=== PATIENT | female | born 1950 | race Caucasian/White ===

== ENCOUNTER 2017-04-23 16:31 | Emergency (ER) | payer MEDICARE, OTHER ==
[~2017-04-23] VITALS: Ht 167.6 cm; Wt 54.5 kg
[~2017-04-23 16:31] MED LIST: WHEEMIS3 XX
[2017-04-23 16:33] VITALS: BP 106/58; PULSE 79; RESP 14; TEMP 99.2; O2SAT 97
--- NOTE | 2017-04-23 18:13 | PD ---
HPI Chief Complaint: Eye Problems/Injury Time Seen by Provider: 18:12 Travel History International Travel<30 days: No Contact w/Intl Traveler<30days: No Traveled to known affect area: No History of Present Illness HPI 66-year-old female presents to the emergency Department with complaint of drainage and redness to her left eye for the last 4-5 days. She thinks that her redness and drainage is related to a fall that she had 3 weeks ago and she states that she hit the left side of her face and it was all "swollen up and bloody." Denies eye pain, photophobia, foreign body, recent trauma to the eye. Says she wakes up in the mornings with her eye crusted shut. Denies fever, vomiting. Reports blurry vision in both eyes; no change in vision in the left eye. Allergies to penicillin and sulfa. Patient says she is homeless and cannot afford a prescription for eye medication. She has no other medical complaints. She says she is concerned because she does not want to "lose her eye." He does not have an established primary care provider. No other modifying factors or associated signs and symptoms. PFSH Past Medical History Arthritis: Yes Cancer: Yes (Cervical/Ovarian) Cardiovascular Problems: Yes (patient states her blood is to thin, and it's been like that) Diminished Hearing: No Endocrine: No Genitourinary: Yes (STRESS INCONTINENCE) Musculoskeletal: Yes Neurologic: No Psychiatric: No Reproductive: No Respiratory: Yes (Tx TB in the .) Menopausal: Yes : 0 Para: 0 Miscarriage: 0 : 0 Past Surgical History Abdominal Surgery: Yes (SPLEENECTOMY) Gynecologic Surgery: Yes (PARTIAL HYSTERECTOMY) Hysterectomy: Yes (Partial age 26; Ovaries out age 41 ) Other Surgery: Yes (Splenectomy age 6) Social History Alcohol Use: Yes (2 4-Packs Daily) Tobacco Use: Yes (1PPD) Substance Use: No Allergies-Medications (Allergen,Severity, Reaction): Coded Allergies: Penicillin (Verified Allergy, Severe, SOB, 04/23/17) Sulfa (Verified Allergy, Severe, 04/23/17) Reported Meds & Prescriptions Reported Meds & Active Scripts Active Erythromycin Opth Oint 5 Mg/Gm Oint 1 Applic LEFT EYE QID 7 Days Review of Systems Except as stated in HPI: all other systems reviewed are Neg Physical Exam Narrative GENERAL: Well-nourished, well-developed female patient, in no acute distress; afebrile, nontoxic-appearing; disheveled SKIN: Warm and dry. HEAD: Atraumatic. Normocephalic. EYES: Pupils equal and round at 3 mm with brisk reaction. PERRLA. EOMI. left lid eversion with no foreign body noted. Left eye with mild scleral erythema and without lid edema. No orbital tenderness, erythema or cellulitis. Left eye without photophobia. No consensual photophobia. No scleral icterus. Dry drainage noted to upper and lower eyelashes and to the lower eyelid of the left eye. ENT: Mucosa pink and moist. NECK: Trachea midline. No lymphadenopathy. CARDIOVASCULAR: Regular rate. RESPIRATORY: No accessory muscle use. GASTROINTESTINAL: Rounded. NEUROLOGICAL: Awake and alert. Oriented 3. No obvious cranial nerve deficits. Motor grossly within normal limits. Normal speech. PSYCHIATRIC: Appropriate mood and affect; insight and judgment normal. Data Data Last Documented VS Vital Signs Date Time Temp Pulse Resp B/P Pulse Ox O2 Delivery O2 Flow Rate FiO2 04/23/17 16:33 99.2 79 14 106/58 97 Orders Erythromycin 0.5% Opth Oint (Ilotycin 0. (04/23/17 18:15) [facility] Medical Decision Making Medical Screen Exam Complete: Yes Emergency Medical Condition: Yes Medical Record Reviewed: Yes Differential Diagnosis Viral conjunctivitis, bacterial conjunctivitis, allergic conjunctivitis Narrative Course 66-year-old female physical examination consistent with left eye conjunctivitis. Patient is homeless and cannot afford prescription for antibiotic eye ointment. Erythromycin ordered in the ER and will be given to the patient. A prescription for azithromycin will also be provided to the patient. Instructed patient to follow up with ophthalmology. Patient given a information sheet [facility]. Patient verbalizes understanding and agreement with treatment plan. Patient is medically cleared and stable for discharge. Discussed reasons to return to the emergency department. Instructed patient to follow up with primary care provider. Patient agrees with treatment plan. The patients vital signs are stable and the patient is stable for outpatient follow-up and treatment. Patient discharged home, stable and in no acute distress. Diagnosis Primary Impression: Conjunctivitis Qualified Code: H10.9 - Conjunctivitis of left eye, unspecified conjunctivitis type Referrals: [facility] [employer] Primary Care Physician Patient Instructions: Conjunctivitis (ED), General Instructions Additional Instructions: Conjunctivitis is contagious Use antibiotic eye drops as prescribed Apply warm or cool compresses to both eyes for a few minutes several times daily to minimize irritation Avoid triggers, such as allergens, that may irritate your eyes Wash your hands frequently Do not share washcloths, towels, pillows, or any other material that has touched your eyes with any other household members Follow-up with your primary care provider Follow-up with ophthalmology as needed Return to the emergency department immediately with worsening of symptoms Med/Other Pt SpecificInfo: Prescription(s) given Scripts Erythromycin Opth Oint 5 Mg/Gm Oint1 Applic LEFT EYE QID 7 Days Ref 0 Prov:Lucille Maher 04/23/17 Disposition: 01 DISCHARGE HOME Condition: Stable Lucille Maher Apr 23, 2017 18:13 Lucille Maher Apr 23, 2017 18:13
[2017-04-23] MEDS ORDERED: ERYTHROMYCIN 0.5% OPTH OINT 3.5 GM TUBO LEFT EYE ONE (18:15)
[2017-04-23] MEDS ORDERED: ERYTOIN10 LEFT EYE (18:18)
== END 2017-04-23 18:40 | disposition home or self-care (01) ==
LOC: NEPK 16:31
DX: H10.9 Unspecified conjunctivitis (principal); M19.90 Unspecified osteoarthritis, unspecified site; Z88.2 Allergy status to sulfonamides; Z88.0 Allergy status to penicillin; Z59.0 Homelessness
CPT/HCPCS: 99283

== ENCOUNTER 2017-05-15 16:42 | Emergency (ER) | payer MEDICARE, OTHER ==
[~2017-05-15 16:42] MED LIST changes: +ERYTOIN10 LEFT EYE; -WHEEMIS3 XX
[2017-05-15 17:04] VITALS: BP 112/59; PULSE 73; RESP 20; TEMP 98.9; O2SAT 96
--- NOTE | 2017-05-15 17:24 | PD ---
Physical Exam Time Seen by Provider: 17:21 Narrative 66 y/o female here with L eye irritation and redness. dx with conjuctivitis on 04/23 but symptoms persist. Vital signs reviewed. Seen at triage desk. Awaiting bed placement. Data Data Last Documented VS Vital Signs Date Time Temp Pulse Resp B/P Pulse Ox O2 Delivery O2 Flow Rate FiO2 05/15/17 17:04 98.9 73 20 112/59 96 Room Air [facility] Medical Record Reviewed: Yes Supervised Visit with TAYLOR: Rico Glass May 15, 2017 17:24
--- NOTE | 2017-05-15 18:02 | PD ---
HPI Chief Complaint: Eye Problems/Injury Time Seen by Provider: 18:01 Travel History International Travel<30 days: No Contact w/Intl Traveler<30days: No Traveled to known affect area: No History of Present Illness HPI 66 year-old female presents to emergency department for recurrent irritation in her left eye with moderate erythema and edema of the left inferior eyelid. Patient states weeks ago she had a trauma to the left face/I. It became very edematous and was bleeding. This resolved and then she developed left eye irritation. She was diagnosed with conjunctivitis and prescribed erythromycin ointment in April. She states she has been using this but ran out. Denies any visual disturbances. No new injury. No sensation of foreign body. No other symptoms to report. PFSH Past Medical History Arthritis: Yes Cancer: Yes (Cervical/Ovarian) Cardiovascular Problems: Yes (patient states her blood is to thin, and it's been like that) Diminished Hearing: No Endocrine: No Genitourinary: Yes (STRESS INCONTINENCE) Musculoskeletal: Yes Neurologic: No Psychiatric: No Reproductive: No Respiratory: Yes (Tx TB in the .) Menopausal: Yes : 0 Para: 0 Miscarriage: 0 : 0 Past Surgical History Abdominal Surgery: Yes (SPLEENECTOMY) Gynecologic Surgery: Yes (PARTIAL HYSTERECTOMY) Hysterectomy: Yes (Partial age 26; Ovaries out age 41 ) Other Surgery: Yes (Splenectomy age 6) Social History Alcohol Use: Yes (2 4-Packs Daily) Tobacco Use: Yes (1PPD) Substance Use: No Allergies-Medications (Allergen,Severity, Reaction): Coded Allergies: Penicillin (Verified Allergy, Severe, SOB, 05/15/17) Sulfa (Verified Allergy, Severe, 05/15/17) Reported Meds & Prescriptions Reported Meds & Active Scripts Active Erythromycin Opth Oint 5 Mg/Gm Oint 1 Applic LEFT EYE QID 7 Days Review of Systems Except as stated in HPI: all other systems reviewed are Neg Physical Exam Narrative GENERAL: Thin, poorly kempt female patient, in no acute distress SKIN: Focused skin assessment warm/dry. HEAD: Normocephalic. No tenderness to palpation of the facial structures. EYES: No scleral icterus. Injection of the left sclera. Crusting along the lower eyelid. The left lower eyelid is mildly inflamed and outward turned. No foreign body identified. No increased uptake on fluorescein examination. NECK: Supple, trachea midline. No JVD or lymphadenopathy. CARDIOVASCULAR: Regular rate and rhythm without murmurs, gallops, or rubs. RESPIRATORY: Breath sounds equal bilaterally. No accessory muscle use. Data Data Last Documented VS Vital Signs Date Time Temp Pulse Resp B/P Pulse Ox O2 Delivery O2 Flow Rate FiO2 05/15/17 17:04 98.9 73 20 112/59 96 Room Air Orders Ofloxacin 0.3% Opth Soln (Ocuflox 0.3% O (05/15/17 18:15) [facility] Medical Decision Making Medical Screen Exam Complete: Yes Emergency Medical Condition: Yes Medical Record Reviewed: Yes Differential Diagnosis Conjunctivitis versus iritis versus keratitis versus blepharitis Narrative Course 66 year-old female presents to the emergency department for evaluation. Patient 's exam is consistent with a conjunctivitis. This seems to be recurrent diagnosis. Patient was on the mycin last visit. She'll be started on Ocuflox here. She is counseled on care, encouraged not to rub the eye, and to follow- up with ophthalmology. She agrees to return immediately with any acute worsening symptoms. Diagnosis Primary Impression: Conjunctivitis Qualified Code: H10.502 - Blepharoconjunctivitis of left eye, unspecified blepharoconjunctivitis type Referrals: [employer] Primary Care Physician Patient Instructions: Conjunctivitis (ED), General Instructions Additional Instructions: Do not rub your eye Cool compresses to alleviate irritation Warm compresses to remove any crusting Follow-up with the primary care provider Seek ophthalmology evaluation Return immediately with any acute worsening symptoms Med/Other Pt SpecificInfo: Prescription(s) given Scripts Ofloxacin Opth Drops (Ocuflox Opth Drops)0.3 % Drops1 Drop LEFT EYE Q6HR #1 BOTTLE Ref 0 Prov:Lillie Vargas 05/15/17 Disposition: 01 DISCHARGE HOME Condition: Stable Lillie Vargas May 15, 2017 18:01
[2017-05-15] MEDS ORDERED: OCUF0.3D LEFT EYE (18:08)
[2017-05-15] MEDS ORDERED: OFLOXACIN 0.3% OPTH SOLN 5 ML BTL LEFT EYE ONE (18:15)
== END 2017-05-15 18:38 | disposition home or self-care (01) ==
LOC: NEPK 16:42
DX: H10.9 Unspecified conjunctivitis (principal); M13.80 Other specified arthritis, unspecified site; F17.200 Nicotine dependence, unspecified, uncomplicated; Z86.11 Personal history of tuberculosis; Z85.41 Personal history of malignant neoplasm of cervix uteri; Z85.43 Personal history of malignant neoplasm of ovary; Z79.899 Other long term (current) drug therapy; Z88.0 Allergy status to penicillin; Z88.2 Allergy status to sulfonamides
CPT/HCPCS: 99283

== ENCOUNTER 2017-08-18 19:23 | Emergency (ER) | payer MEDICARE, OTHER ==
[~2017-08-18 19:23] MED LIST changes: +OCUF0.3D LEFT EYE
[2017-08-18 19:40] VITALS: BP 156/75; PULSE 88; RESP 22; TEMP 97.9; O2SAT 99
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
[2017-08-18] MEDS ORDERED: PERMETHRIN 5% CREAM 60 GM TOPICAL ONE (20:00)
== END 2017-08-18 22:01 | disposition home or self-care (01) ==
LOC: NEPB 19:23
DX: B86 Scabies (principal); Z59.0 Homelessness; F17.200 Nicotine dependence, unspecified, uncomplicated
CPT/HCPCS: 99283

== ENCOUNTER 2017-11-18 09:00 | Emergency (ER) | payer MEDICARE, OTHER ==
[~2017-11-18] VITALS: Ht 162.6 cm; Wt 55.0 kg
[2017-11-18 09:05] VITALS: BP 120/62; PULSE 82; RESP 20; TEMP 98.9; O2SAT 100
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
[2017-11-18] MEDS ORDERED: ASPI1POW9 (09:25)
== END 2017-11-18 09:44 | disposition home or self-care (01) ==
LOC: NEPC 09:00
DX: F10.229 Alcohol dependence with intoxication, unspecified (principal); F17.200 Nicotine dependence, unspecified, uncomplicated
CPT/HCPCS: 99283

== ENCOUNTER 2018-02-02 19:20 | Emergency (ER) | payer MEDICARE, OTHER ==
[~2018-02-02] VITALS: Ht 167.6 cm; Wt 55.0 kg
[~2018-02-02 19:20] MED LIST changes: +ASPI1POW9; -ERYTOIN10 LEFT EYE; -OCUF0.3D LEFT EYE
[2018-02-02 19:45] VITALS: BP 103/63; PULSE 74; RESP 18; TEMP 97.9; O2SAT 97
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
== END 2018-02-02 23:00 | disposition home or self-care (01) ==
LOC: NEDAMB 19:20
DX: S90.32XA Contusion of left foot, initial encounter (principal); X58.XXXA Exposure to other specified factors, initial encounter; Y92.512 Supermarket, store or market as the place of occurrence of the external cause
CPT/HCPCS: 73630; 99283

== ENCOUNTER 2018-06-29 20:56 | Inpatient (IN) ==
[2018-06-29 22:18] LABS: Anion Gap 10 meq/L (5-15); Blood Urea Nitrogen 5 mg/dL (7-18); Calcium 9.1 mg/dL (8.5-10.1); Carbon Dioxide 24.6 meq/L (21.0-32.0); Chloride 103 meq/L (98-107); Glomerular Filtration Rate Greater Than 89 mL/min (>89); Glucose,Random 93 mg/dL (74-106); Potassium 3.2 meq/L (3.5-5.1); Sodium 138 meq/L (136-145)
--- NOTE | 2018-06-29 22:22 | XR ---
EXAM DATE: 06/29/2018 9:37 PM EDT AGE/SEX: 68 years / Female INDICATIONS: . Cough and chest pain. CLINICAL DATA: This is the patient's initial encounter. Patient reports that signs and symptoms have been present for 1 day and indicates a pain score of 10/10. MEDICAL/SURGICAL HISTORY: . History of tuberculosis and pneumonia. None. COMPAR[place] [facility] [place]. . FINDINGS: The heart size is normal. There are multiple calcified masses seen bilaterally in the mid and upper l ungs being more numerous on the left. There is increased density seen at the right base. A significan t effusion is not seen. CONCLUSION: Right lower lung atelectasis or consolidation. Chronic calcification seen throughout the mid and upper lungs being more prominent on the left. Electronically signed by: Khoi Barone MD 06/29/2018 10:20 PM EDT
[2018-06-29 22:29] LABS: Baso # (Auto) 0.1 th/mm3 (0.0-0.2); Baso % (Auto) 0.7 % (0.0-2.0); Eos # (Auto) 0.2 th/mm3 (0.0-0.4); Eos % (Auto) 1.1 % (0.0-4.0); Hematocrit 39.1 % (35.0-46.0); Hemoglobin 13.3 gm/dL (11.6-15.3); Lymph # (Auto) 5.8 th/mm3 (1.0-4.8); Lymph % (Auto) 30.1 % (9.0-44.0); Mean Corpuscular Hemoglobin 35.5 pg (27.0-34.0); Mean Corpuscular Volume 104.6 fL (80.0-100.0); Mean Platelet Volume 8.3 fL (7.0-11.0); Mono # (Auto) 1.9 th/mm3 (0.0-0.9); Neut # (Auto) 11.2 th/mm3 (1.8-7.7); Neut % (Auto) 58.1 % (16.0-70.0); Platelet Count 578 th/mm3 (150-450); Red Blood Count 3.73 mil/mm3 (4.00-5.30); Red Cell Distribution Width 13.8 % (11.6-17.2); White Blood Count 19.3 th/mm3 (4.0-11.0)
[2018-06-29 22:31] LABS: Alcohol 250 mg/dL (0-5)
[2018-06-29] MEDS ORDERED: Erythromycin 0.5% Opth Oint 3.5 GM Tube LEFT EYE ONE (22:34)
--- NOTE | 2018-06-29 23:05 | ED ---
HPI General Chief complaint: Psychiatric Symptoms Stated complaint: SOB Time Seen by Provider: 06/29/18 21:20 History of Present Illness HPI narrative: This is a 68-year-old female with history of COPD, previous TB, previous conjunctivitis of the left eye, presents here today with complaints of cough 3 days. Patient reports productive with yellow phlegm. She denies any fevers, chills. She reports that she has had multiple infections in her lungs. She has not had recurrence of her TB. She reports that the cough started out as dry however is become more productive. Patient also reports redness to her left lower eyelid. No purulent drainage noted. No other complaints at the time of my examination. Related Data Home Medications Medication Instructions Recorded Confirmed No Known Home Medications 06/29/18 06/29/18 Allergies Allergy/AdvReac Type Severity Reaction Status Date / Time penicillin G Allergy Severe SOB Verified 06/29/18 21:10 Sulfa (Sulfonamide Allergy Severe Redness of Verified 06/29/18 21:10 Antibiotics) Skin Review of Systems Constitutional Denies chills and Denies fever(s) Eyes Denies blurry vision, Denies diplopia, Reports itchy eyes (Left eye) and Reports other (Left lower eyelid redness.) ENT Reports system reviewed and no additional complaints, except as docu Cardiovascular Denies chest pain and Denies dyspnea Respiratory Reports chest congestion, Reports cough and Denies dyspnea Gastrointestinal Denies abdominal pain, Denies nausea and Denies vomiting Genitourinary Reports system reviewed and no additional complaints, except as docu Musculoskeletal Reports system reviewed and no additional complaints, except as docu and Reports other (Chronic pain in right upper and bilateral lower extremity secondary to previous old accident.) Integumentary/Breasts Denies lesions and Denies skin ulcer Neurologic Reports system reviewed and no additional complaints, except as docu PMFSH Medical History Medical History COPD (chronic obstructive pulmonary disease) (Acute) ETOH abuse (Acute) Social History Social History Substance History: No History of Abuse Smoking Status: Former smoker Tobacco Type: Cigarettes How Often Do You Have a Drink Containing Alcohol: 4 or more times a week Recent Travel in [facility] within the Last 8 Weeks: No Recent Out of Country Travel within the Last 8 Weeks: No Immunization History Tetanus Immunization: Unsure Hx Influenza Vaccine This Season: No Exam Narrative Exam Narrative: GENERAL: [-] SKIN: Focused skin assessment warm/dry. HEAD: Atraumatic. Normocephalic. EYES: Pupils equal and round. No scleral icterus. No injection or drainage. ENT: No nasal bleeding or discharge. Mucous membranes pink and moist. NECK: Trachea midline. No JVD. CARDIOVASCULAR: Regular rate and rhythm. No murmur appreciated. RESPIRATORY: No accessory muscle use. Clear to auscultation. Breath sounds equal bilaterally. GASTROINTESTINAL: Abdomen soft, non-tender, nondistended. Hepatic and splenic margins not palpable. MUSCULOSKELETAL: No obvious deformities. No clubbing. No cyanosis. No edema. NEUROLOGICAL: Awake and alert. No obvious cranial nerve deficits. Motor grossly within normal limits. Normal speech. PSYCHIATRIC: Appropriate mood and affect; insight and judgment normal. Course Initial Documented Vital Signs Temperature 99.2 F 06/29/18 21:04 Pulse Rate 114 H 06/29/18 21:04 Respiratory Rate 12 06/29/18 21:04 Blood Pressure 144/90 H 06/29/18 21:04 Pulse Oximetry 98 06/29/18 21:04 Last Documented Vital Signs Temperature 98.7 F 06/29/18 21:13 Pulse Rate 79 06/29/18 22:05 Respiratory Rate 20 06/29/18 22:05 Blood Pressure 133/67 06/29/18 21:13 Pulse Oximetry 95 06/29/18 21:14 Medical Decision Making MDM Narrative Medical decision making narrative: 68-year-old female who is unfortunately homeless, presents here today with cough and congestion. Patient also reports left eye irritation. Patient has what appears to be chronic left eye conjunctivitis. There is no evidence of uptake on the cornea with fluorescein. The patient also has bronchitis with a history of tobacco use. She has been started on Rocephin and Zithromax. Chest x-ray shows consolidation of the right base. There is also middle lung changes worse on the left than on the right. White blood cell count is 19,000. Potassium is also 3.2. She has been given p.o. potassium replacement. Medical Screen Exam Complete: Yes Emergency Medical Condition: Yes Differential Diagnosis Differential Diagnosis: Bronchitis versus pneumonia versus tuberculosis versus conjunctivitis Lab Data Result diagrams: 06/29/18 21:28 06/29/18 21:28 Lab Results 06/29/18 06/29/18 Range/Units 21:28 21:28 WBC 19.3 H (4.0-11.0) th/mm3 RBC 3.73 L (4.00-5.30) mil/mm3 Hgb 13.3 (11.6-15.3) gm/dL Hct 39.1 (35.0-46.0) % MCV 104.6 H (80.0-100.0) fL MCH 35.5 H (27.0-34.0) pg MCHC 34.0 (32.0-36.0) % RDW 13.8 (11.6-17.2) % Plt Count 578 H (150-450) th/mm3 MPV 8.3 (7.0-11.0) fL Prelim Diff (Auto) Slide review pending Neut % (Auto) 58.1 (16.0-70.0) % Lymph % (Auto) 30.1 (9.0-44.0) % [place] % (Auto) 10.0 H (0.0-8.0) % Eos % (Auto) 1.1 (0.0-4.0) % Baso % (Auto) 0.7 (0.0-2.0) % Neut # (Auto) 11.2 H (1.8-7.7) th/mm3 Lymph # (Auto) 5.8 H (1.0-4.8) th/mm3 [place] # (Auto) 1.9 H (0.0-0.9) th/mm3 Eos # (Auto) 0.2 (0.0-0.4) th/mm3 Baso # (Auto) 0.1 (0.0-0.2) th/mm3 WBC Differential Manual diff final Seg Neuts % (Manual) 47 (16-70) % Band Neuts % (Manual) 16 H (0-6) % Lymphocytes % (Manual) 24 (9-44) % Monocytes % (Manual) 10 H (0-8) % Eosinophils % (Manual) 3 (0-4) % Abs Neuts (Manual) 12.2 H (1.8-7.7) th/mm3 Differential Comment . Platelet Estimate High H (Normal) Platelet Morphology Normal (Normal) Sodium 138 (136-145) meq/L Potassium 3.2 L (3.5-5.1) meq/L Chloride 103 (98-107) meq/L Carbon Dioxide 24.6 (21.0-32.0) meq/L Anion Gap 10 (5-15) meq/L BUN 5 L (7-18) mg/dL Creatinine 0.54 (0.50-1.00) mg/dL Estimated GFR Greater than 89 (>89) mL/min Random Glucose 93 (74-106) mg/dL Calcium 9.1 (8.5-10.1) mg/dL Serum Alcohol 250 H (0-5) mg/dL Imaging Data Radiologist's impression: Chest X-Ray 06/29/18 21:20 CONCLUSION: Right lower lung atelectasis or consolidation. Chronic calcification seen throughout the mid and upper lungs being more prominent on the left. Discharge Plan Discharge Disposition Patient Disposition: 30 Still Patient Discharge Details Diagnosis: Conjunctivitis, Pneumonia, Leukocytosis, Hypokalemia, Alcohol abuse with intoxication Physicians Team ED Provider: Dickson Rojas Primary Care Provider: UNKNOWN, Rxs /Orders / Referrals /Forms Prescriptions: No Action No Known Home Medications RF: 0 Discharge Interventions Interventions: Vital Signs Last Done: 06/29/18 21:14 Status ED Status: With Doctor
[2018-06-29 23:09] LABS: Eosinophils 3 % (0-4); Lymphocytes 24 % (9-44); Monocytes 10 % (0-8)
[2018-06-29 23:10] LABS: Platelet Morphology Normal (Normal)
[2018-06-30] MEDS ORDERED: Bisacodyl 10 MG Supp RECTAL PRN (01:10)
--- NOTE | 2018-06-30 01:35 | P.HPIM ---
History of Present Illness Primary Care Physician: UNKNOWN History of Present Illness: 68 y/o homeless female with a history or COPD and etoh abuse presented to the ED with a cough and sob. Patient states for the last few days she has had increasing sob, with a productive cough, fever and chills. She states she does have a history of TB but has not had a reoccurrence lately. She does not know the color of her sputum because she does not look at it she says. She is currently homeless, and does not take any medications. She denies any chest pain , headaches or dizziness. Inpatient Certification: I certify that the inpatient services were ordered in accordance with Medicare regulations governing the order. This includes certification that hospital inpatient services are reasonable and necessary and in the case of services not specified as inpatient-only under 42 CFR 419.22(n), that they are appropriately provided as inpatient services in accordance to with the 2-midnight benchmark under 43 CFR 412.3(e) Estimated Total Length of Stay (Days): 2 Plans for Post Hospital Care: Home Review of Systems All other systems reviewed negative except as stated in HPI [facility] - History History Provided By: Patient - Medical History Medical History: Medical History (Last Updated 06/30/18 @ 01:22 by CLIFFORD Damon) COPD (chronic obstructive pulmonary disease) ETOH abuse - Surgical History Surgical History: Surgical History (Last Updated 06/30/18 @ 01:22 by CLIFFORD Damon) H/O splenectomy H/O: hysterectomy - Family History Family History: Family History (Last Updated 06/30/18 @ 19:26 by CLIFFORD Damon) Other Family history unknown - Tobacco History Tobacco Use In Past 30 Days: Yes Smoking Status: Former smoker Tobacco Type: Cigarettes - Alcohol History How Often Do You Have a Drink Containing Alcohol: 4 or more times a week - Substance Use History Substance History: No History of Abuse - Travel History Recent Travel in the [place] Within the Last 8 Weeks: No Recent Travel Out of the Country Within the Last 8 Weeks: No - Immunization History Tetanus Immunization: Unsure Hx Influenza Vaccine This Season: No Medications and Allergies Active Medications: Active Medications Al Hydroxide/Mg Hydroxide (Milk Of Magnesia Liq) 30 ml PO Q12H PRN PRN Reason: Mild Constipation Bisacodyl (Dulcolax Supp) 10 mg RECTAL DAILY PRN PRN Reason: SEVERE CONSITIPATION Flumazenil (Romazecon Inj) 0.2 mg IV.PUSH Q1M PRN PRN Reason: OVERSEDATION Haloperidol Lactate (Haldol Inj) 1 mg IV.PUSH Q15M PRN PRN Reason: for severe agitation Levofloxacin/Dextrose (Levaquin 750 Mg Premix Inj) 150 mls @ 100 mls/hr IV.SIG ONCE ONE Stop: 06/30/18 02:23 Last Admin: 06/30/18 01:10 Dose: 100 mls/hr Sodium Chloride (Ns Inj) 1,000 mls @ 100 mls/hr IV.CONT .Q10H KEYA Lactulose (Lactulose Liq) 30 ml PO DAILY PRN PRN Reason: SEVERE CONSITIPATION Levofloxacin (Levaquin) 750 mg PO Q24H KEYA Lorazepam (Ativan Inj) 1 mg IV.PUSH Q4H PRN PRN Reason: for CIWA 8-10 Lorazepam (Ativan Inj) 2 mg IV.PUSH Q15M PRN PRN Reason: for CIWA > 20 Lorazepam (Ativan Inj) 2 mg IV.PUSH Q1H PRN PRN Reason: for CIWA 15-20 Lorazepam (Ativan) 1 mg PO Q4H PRN PRN Reason: for CIWA 8-10 Lorazepam (Ativan) 2 mg PO Q2H PRN PRN Reason: for CIWA 11-14 Lorazepam (Ativan Inj) 2 mg IV.PUSH Q2H PRN PRN Reason: for CIWA 11-14 Sennosides (Senokot) 17.2 mg PO Q12H PRN PRN Reason: Moderate Constipation Allergies Allergy/AdvReac Type Severity Reaction Status Date / Time penicillin G Allergy Severe SOB Verified 06/29/18 21:10 Sulfa (Sulfonamide Allergy Severe Redness of Verified 06/29/18 21:10 Antibiotics) Skin Home Medications Medication Instructions Recorded Confirmed Type No Known Home Medications 06/29/18 06/29/18 History Exam Vital signs: Vital Signs 06/29/18 21:04 06/29/18 21:13 06/29/18 21:14 Temperature 99.2 F 98.7 F Pulse Rate 114 H 81 78 Respiratory Rate 12 28 H 20 Blood Pressure 144/90 H 133/67 Pulse Oximetry 98 94 L 95 06/29/18 21:40 06/29/18 21:55 06/29/18 22:05 Temperature Pulse Rate 73 75 79 Respiratory Rate 18 22 20 Blood Pressure Pulse Oximetry 06/30/18 01:20 Temperature Pulse Rate 84 Respiratory Rate 20 Blood Pressure 99/55 L Pulse Oximetry 97 Intake & Output 06/29/18 06/29/18 06/30/18 06:59 18:59 06:59 Weight 54.431 kg Narrative: GENERAL: This is a thin, disheveled homeless female with dyspnea SKIN: Warm, dry, intact, no ecchymosis or open lesions EYES: Pupils equal round and reactive, no scleral edema or drainage CARDIOVASCULAR: Regular rate and rhythm without murmurs, gallops, or rubs. RESPIRATORY: Scattered rhonchi throughout, diminished bases, no wheezing GASTROINTESTINAL: Abdomen soft, non-tender, nondistended. Normal active bowel sounds MUSCULOSKELETAL: Extremities without clubbing, cyanosis, or edema. NEURO: Alert & Oriented x4 to person, place, time, situation. Moves all ext x4 Results - Labs CBC & Chem 7: 06/30/18 06:05 06/30/18 06:05 Labs: Short CBC 06/29/18 Range/Units 21:28 WBC 19.3 H (4.0-11.0) th/mm3 Hgb 13.3 (11.6-15.3) gm/dL Hct 39.1 (35.0-46.0) % Plt Count 578 H (150-450) th/mm3 BMP 06/29/18 21:28 Sodium 138 Potassium 3.2 L Chloride 103 Carbon Dioxide 24.6 BUN 5 L Creatinine 0.54 Calcium 9.1 - Imaging Impressions Chest X-Ray 06/29/18 21:20 CONCLUSION: Right lower lung atelectasis or consolidation. Chronic calcification seen throughout the mid and upper lungs being more prominent on the left. Caprini VTE Risk Assessment Caprini VTE Risk Assessment: No/Low Risk (score <= 1) Caprini Risk Assessment Model: Point Value = 1 Point Value = 2 Point Value = 3 Point Value = 5 Age 41-60 Minor surgery BMI > 25 kg/m2 Swollen legs Varicose veins or History of unexplained or recurrent spontaneous Oral contraceptives or hormone replacement Sepsis (< 1 month) Serious lung disease, including pneumonia (< 1 month) Abnormal pulmonary function Acute myocardial infarction Congestive heart failure (< 1 month) History of inflammatory bowel disease Medical patient at bed rest Age 61-74 Arthroscopic surgery Major open surgery (> 45 min) Laparoscopic surgery (> 45 min) Malignancy Confined to bed (> 72 hours) Immobilizing plaster cast Central venous access Age >= 75 History of VTE Family history of VTE Factor V Leiden Prothrombin [id number] Lupus anticoagulant Anticardiolipin antibodies Elevated serum homocysteine Heparin-induced thrombocytopenia Other congenital or acquired thrombophilia Stroke (< 1 month) Elective arthroplasty Hip, pelvis, or leg fracture Acute spinal cord injury (< 1 month) Prophylaxis Regimen: Total Risk Factor Score Risk Level Prophylaxis Regimen 0-1 Low Early ambulation 2 Moderate Order ONE of the following: *Sequential Compression Device (SCD) *Heparin 5000 units SQ BID 3-4 Higher Order ONE of the following medications: *Heparin 5000 units SQ TID *Enoxaparin/Lovenox 40 mg SQ daily (WT < 150 kg, CrCl > 30 mL/min) *Enoxaparin/Lovenox 30 mg SQ daily (WT < 150 kg, CrCl > 10-29 mL/min) *Enoxaparin/Lovenox 30 mg SQ BID (WT < 150 kg, CrCl > 30 mL/min) AND/OR *Sequential Compression Device (SCD) 5 or more Highest Order ONE of the following medications: *Heparin 5000 units SQ TID (Preferred with Epidurals) *Enoxaparin/Lovenox 40 mg SQ daily (WT < 150 kg, CrCl > 30 mL/min) *Enoxaparin/Lovenox 30 mg SQ daily (WT < 150 kg, CrCl > 10-29 mL/min) *Enoxaparin/Lovenox 30 mg SQ BID (WT < 150 kg, CrCl > 30 mL/min) AND *Sequential Compression Device (SCD) Assessment and Plan - Plan 68 y/o homeless female with a history or COPD and etoh abuse presented to the ED with a cough and sob. Severe Sepsis, wbc 19.3, HR 114, lactic acid 3.0, suspect Pneumonia, right Chest x-ray reviewed and shows a right lower lung atelectasis or consolidation -IV antibiotics Levaquin -Duo nebs scheduled and as needed -Blood cultures pending -Labs in am, repeat lactic -IVF NS 20K @100ml/hr -legionella and pneumococcal urinary antigen ordered -Sputum culture ordered Hypokalemia, potassium 3.2 -Supplementation ordered, trend electrolytes, replace as needed EtOH abuse -CIWA protocol -Seizure precautions DVT prophylaxis: SCDs Discussed Condition With: patient and rn
[2018-06-30] MEDS: Sod Chloride 0.9% Inj 1,000 ML IV.CONT SCH ×3 (02:11→21:25)
[2018-06-30] MEDS: LORazepam 1 MG Tablet PO PRN ×2 (02:28→09:35)
[2018-06-30] MEDS ORDERED: Sod Chloride 0.9% Inj 1,000 ML IV.SIG SCH (05:00)
[2018-06-30 07:08] LABS: Baso # (Auto) 0.1 th/mm3 (0.0-0.2); Baso % (Auto) 0.6 % (0.0-2.0); Eos # (Auto) 0.2 th/mm3 (0.0-0.4); Eos % (Auto) 1.3 % (0.0-4.0); Hemoglobin 10.9 gm/dL (11.6-15.3); Lymph # (Auto) 2.3 th/mm3 (1.0-4.8); Lymph % (Auto) 15.6 % (9.0-44.0); Mean Corpuscular HGB Conc 33.1 % (32.0-36.0); Mean Corpuscular Hemoglobin 35.2 pg (27.0-34.0); Mean Corpuscular Volume 106.2 fL (80.0-100.0); Mono # (Auto) 1.6 th/mm3 (0.0-0.9); Mono % (Auto) 10.8 % (0.0-8.0); Neut # (Auto) 10.6 th/mm3 (1.8-7.7); Neut % (Auto) 71.7 % (16.0-70.0); Platelet Count 482 th/mm3 (150-450); Red Blood Count 3.11 mil/mm3 (4.00-5.30); Red Cell Distribution Width 13.7 % (11.6-17.2); White Blood Count 14.8 th/mm3 (4.0-11.0)
[2018-06-30 07:33] LABS: Alanine Aminotransferase 24 U/L (10-53); Alkaline Phosphatase 214 U/L (45-117); Anion Gap 12 meq/L (5-15); Aspartate Aminotransferase 29 U/L (15-37); Blood Urea Nitrogen 3 mg/dL (7-18); Calcium 7.3 mg/dL (8.5-10.1); Carbon Dioxide 22.1 meq/L (21.0-32.0); Chloride 107 meq/L (98-107); Glomerular Filtration Rate Greater Than 89 mL/min (>89); Glucose,Random 81 mg/dL (74-106); Potassium 3.3 meq/L (3.5-5.1); Sodium 141 meq/L (136-145); Total Protein 6.2 g/dL (6.4-8.2)
--- NOTE | 2018-06-30 16:55 | P.PN ---
Subjective Interval history: BRIEF NOTE Nursing denies any deterioration since last night. Says that the patient was going home. Patient is a little upset that I asked her about her mental orientation. Says that her shortness of breath is better. Heart sounds regular rhythm, no murmurs Coarse breath sounds bilaterally, unlabored breathing Appears disheveled Alert and oriented 3 Continue antibiotics for treatment with sepsis possibly secondary to pneumonia as well as CIWA protocol Independent review my chest x-ray film shows chronic scattered irregularly- shaped calcifications. May be worth a pulmonology consult if patient's respiratory status does not improve over the next 24 hours. Physical Exam Vital signs: Vital Signs 06/29/18 21:04 06/29/18 21:13 06/29/18 21:14 Temperature 99.2 F 98.7 F Pulse Rate 114 H 81 78 Respiratory Rate 12 28 H 20 Blood Pressure 144/90 H 133/67 Pulse Oximetry 98 94 L 95 06/29/18 21:40 06/29/18 21:55 06/29/18 22:05 Temperature Pulse Rate 73 75 79 Respiratory Rate 18 22 20 Blood Pressure Pulse Oximetry 06/30/18 01:14 06/30/18 01:20 06/30/18 04:56 Temperature Pulse Rate 84 84 95 H Respiratory Rate 20 20 20 Blood Pressure 99/55 L 89/56 L Pulse Oximetry 94 L 97 93 L 06/30/18 07:37 06/30/18 11:58 06/30/18 14:21 Temperature 100 F H Pulse Rate 88 93 H 111 H Respiratory Rate 17 14 18 Blood Pressure 96/62 L Pulse Oximetry 88 L Intake & Output 06/29/18 06/30/18 06/30/18 18:59 06:59 18:59 Intake Total 1390 / 1390 Balance 1390 / 1390 Weight 54.431 kg Intake: IV 1150 / 1150 Levaquin 750 mg Premix Inj 150 150 / 150 ML @ 100 mls/hr IV.SIG ONCE ONE Rx#:[id number] NS Inj 1,000 ML @ Wide Open IV. 1000 / 1000 SIG BOLUS KEYA Rx#:[id number] Oral 240 / 240 Other: # Voids 1 Results - Labs CBC & Chem 7: 06/30/18 06:05 06/30/18 06:05 Laboratory Results - last 24 hr 06/29/18 06/29/18 06/30/18 21:28 21:28 03:14 WBC 19.3 H RBC 3.73 L Hgb 13.3 Hct 39.1 MCV 104.6 H MCH 35.5 H MCHC 34.0 RDW 13.8 Plt Count 578 H MPV 8.3 Prelim Diff (Auto) Slide review pending Neut % (Auto) 58.1 Lymph % (Auto) 30.1 [place] % (Auto) 10.0 H Eos % (Auto) 1.1 Baso % (Auto) 0.7 Neut # (Auto) 11.2 H Lymph # (Auto) 5.8 H [place] # (Auto) 1.9 H Eos # (Auto) 0.2 Baso # (Auto) 0.1 WBC Differential Manual diff final Seg Neuts % (Manual) 47 Band Neuts % (Manual) 16 H Lymphocytes % (Manual) 24 Monocytes % (Manual) 10 H Eosinophils % (Manual) 3 Abs Neuts (Manual) 12.2 H Differential Comment . Platelet Estimate High H Platelet Morphology Normal Sodium 138 Potassium 3.2 L Chloride 103 Carbon Dioxide 24.6 Anion Gap 10 BUN 5 L Creatinine 0.54 Estimated GFR Greater than 89 Random Glucose 93 Lactic Acid 3.0 H Calcium 9.1 Prot Corrected Calcium Total Bilirubin AST ALT Alkaline Phosphatase Total Protein Albumin Serum Alcohol 250 H 06/30/18 06/30/18 06/30/18 05:58 06:05 06:05 WBC 14.8 H RBC 3.11 L Hgb 10.9 L D Hct 33.0 L MCV 106.2 H MCH 35.2 H MCHC 33.1 RDW 13.7 Plt Count 482 H MPV 8.0 Prelim Diff (Auto) Neut % (Auto) 71.7 H Lymph % (Auto) 15.6 [place] % (Auto) 10.8 H Eos % (Auto) 1.3 Baso % (Auto) 0.6 Neut # (Auto) 10.6 H Lymph # (Auto) 2.3 [place] # (Auto) 1.6 H Eos # (Auto) 0.2 Baso # (Auto) 0.1 WBC Differential . Seg Neuts % (Manual) Band Neuts % (Manual) Lymphocytes % (Manual) Monocytes % (Manual) Eosinophils % (Manual) Abs Neuts (Manual) Differential Comment Auto diff final Platelet Estimate Platelet Morphology Sodium 141 Potassium 3.3 L Chloride 107 Carbon Dioxide 22.1 Anion Gap 12 BUN 3 L Creatinine 0.29 L Estimated GFR Greater than 89 Random Glucose 81 Lactic Acid 1.8 Calcium 7.3 L* D Prot Corrected Calcium 7.8 L Total Bilirubin 0.3 AST 29 ALT 24 Alkaline Phosphatase 214 H Total Protein 6.2 L Albumin 2.0 L Serum Alcohol Microbiology 06/30/18 03:11 Urine - Clean Catch Urine Streptococcus pneumoniae Antigen ( M - Final Presumptive negative for streptococcus pneumoniae antigen, suggesting no current or recent infection. Infection due to Streptococcus pneumoniae cannot be ruled out since the antigen present in the sample may be below the detection limit of the test. 06/30/18 03:11 Urine - Clean Catch Urine Legionella Antigen - Final Presumptive negative for Legionella pneumophila serogroup 1 antigen in urine, suggesting no recent or recurrent infection. Infection due to Legionella cannot be ruled out since other serogroups and species may cause disease, antigen may not be present in urine in early infection, and the level of antigen present in the urine may be below the detection limit of the test. - Imaging Impressions Chest X-Ray 06/29/18 21:20 CONCLUSION: Right lower lung atelectasis or consolidation. Chronic calcification seen throughout the mid and upper lungs being more prominent on the left.
[2018-06-30] MEDS: levoFLOXacin 750 MG Tablet PO SCH (21:24)
[2018-06-30] MEDS ORDERED: Acetaminophen 325 MG Tablet PO PRN (21:44)
[2018-07-01 08:57] LABS: Baso # (Auto) 0.1 th/mm3 (0.0-0.2); Baso % (Auto) 0.6 % (0.0-2.0); Eos # (Auto) 0.2 th/mm3 (0.0-0.4); Eos % (Auto) 1.8 % (0.0-4.0); Hematocrit 25.4 % (35.0-46.0); Hemoglobin 8.6 gm/dL (11.6-15.3); Lymph # (Auto) 1.9 th/mm3 (1.0-4.8); Lymph % (Auto) 17.1 % (9.0-44.0); Mean Corpuscular Hemoglobin 35.9 pg (27.0-34.0); Mean Corpuscular Volume 105.4 fL (80.0-100.0); Mean Platelet Volume 8.2 fL (7.0-11.0); Mono # (Auto) 1.4 th/mm3 (0.0-0.9); Mono % (Auto) 13.4 % (0.0-8.0); Neut # (Auto) 7.3 th/mm3 (1.8-7.7); Neut % (Auto) 67.1 % (16.0-70.0); Platelet Count 337 th/mm3 (150-450); Red Blood Count 2.41 mil/mm3 (4.00-5.30); Red Cell Distribution Width 13.5 % (11.6-17.2); White Blood Count 10.8 th/mm3 (4.0-11.0)
[2018-07-01] MEDS: Haloperidol Inj 5 MG/ML Ampul IV.PUSH PRN ×2 (09:21→10:49)
[2018-07-01] MEDS ORDERED: Vancomycin Consult Pharmacy OTHER PRN (09:37)
[2018-07-01] MEDS: LORazepam 1 MG Tablet PO PRN ×2 (11:44→13:22)
[2018-07-01] MEDS ORDERED: Vancomycin Inj 1,250 MG in Sodium Chlor 0.9% Inj 250 ML IV.SIG ONE (12:00)
--- NOTE | 2018-07-01 13:53 | P.PN ---
Subjective Interval history: Follow-up visit EtOH, pneumonia, positive blood cultures. Patient seen and examined today. Drowsy. States she wants to go. Patient states she was at the hospital a few days ago. When asked if she is using illicit drugs, patient states "the Goodies." When asked with a good response patient did not reply. States she is doing okay just to leave her alone. Physical Exam Vital signs: Vital Signs 06/30/18 14:21 06/30/18 20:00 06/30/18 20:05 Temperature 100.0 F H Pulse Rate 111 H 87 74 Respiratory Rate 18 18 18 Blood Pressure 125/71 Pulse Oximetry 95 07/01/18 00:00 07/01/18 04:00 07/01/18 08:00 Temperature 99.4 F 98.0 F 99.4 F Pulse Rate 85 77 92 H Respiratory Rate 17 17 17 Blood Pressure 110/70 105/59 L 109/69 Pulse Oximetry 95 96 97 07/01/18 12:00 Temperature 98.9 F Pulse Rate 97 H Respiratory Rate 17 Blood Pressure 123/71 Pulse Oximetry 97 Intake & Output 06/30/18 07/01/18 07/01/18 18:59 06:59 18:59 Intake Total 240 / 240 1360 / 1360 1000 / 1000 Balance 240 / 240 1360 / 1360 1000 / 1000 Weight 52.163 kg Intake: IV 1000 / 1000 1000 / 1000 NS + KCl 20 mEq Inj 1,000 ML @ 1000 / 1000 100 mls/hr IV.CONT .Q10H [facility] Rx #:[id number] NS Inj 1,000 ML @ 100 mls/hr IV 1000 / 1000 .CONT .Q10H [facility] Rx#:[id number] Oral 240 / 240 360 / 360 Other: # Voids 3 5 Narrative: GENERAL: This is a disheveled, thin appearing female, in no apparent distress. SKIN: Warm and dry. HEENT: Normocephalic. Pupils equal round and reactive. Nose without bleeding. Airway patent. NECK: Trachea midline. Supple. CARDIOVASCULAR: Regular rate and rhythm without murmurs, gallops, or rubs. RESPIRATORY: Diminished bases right greater than the left. Minimal wheeze. GASTROINTESTINAL: Abdomen soft, non-tender, nondistended. Bowel Sounds normoactive x4. MUSCULOSKELETAL: Extremities without clubbing, cyanosis, or edema. NEUROLOGICAL: Drowsy Oriented to time, place, person. No focal neuro deficit. Moves all extremities. Normal speech. Results - Labs CBC & Chem 7: 07/01/18 07:51 06/30/18 06:05 Laboratory Results - last 24 hr 06/30/18 07/01/18 15:32 07:51 WBC 10.8 RBC 2.41 L Hgb 8.6 L D Hct 25.4 L MCV 105.4 H MCH 35.9 H MCHC 34.0 RDW 13.5 Plt Count 337 D MPV 8.2 Neut % (Auto) 67.1 Lymph % (Auto) 17.1 [place] % (Auto) 13.4 H Eos % (Auto) 1.8 Baso % (Auto) 0.6 Neut # (Auto) 7.3 Lymph # (Auto) 1.9 [place] # (Auto) 1.4 H Eos # (Auto) 0.2 Baso # (Auto) 0.1 WBC Differential . Differential Comment Auto diff final Procalcitonin 37.78 H Microbiology 06/30/18 01:05 Blood - Peripheral Aerobic Blood Culture - Preliminary Staphylococcus coag negative 06/30/18 01:05 Blood - Peripheral Anaerobic Blood Culture - Preliminary gram positive cocci 06/30/18 15:32 Blood - Peripheral Aerobic Blood Culture - Preliminary gram positive cocci 06/30/18 15:32 Blood - Peripheral Anaerobic Blood Culture - Preliminary gram positive cocci 06/30/18 03:11 Urine - Clean Catch Urine Streptococcus pneumoniae Antigen ( M - Final Presumptive negative for streptococcus pneumoniae antigen, suggesting no current or recent infection. Infection due to Streptococcus pneumoniae cannot be ruled out since the antigen present in the sample may be below the detection limit of the test. 06/30/18 03:11 Urine - Clean Catch Urine Legionella Antigen - Final Presumptive negative for Legionella pneumophila serogroup 1 antigen in urine, suggesting no recent or recurrent infection. Infection due to Legionella cannot be ruled out since other serogroups and species may cause disease, antigen may not be present in urine in early infection, and the level of antigen present in the urine may be below the detection limit of the test. Assessment and Plan - Plan 68 y/o homeless female with a history or COPD and etoh abuse presented to the ED with a cough and sob. Patient states for the last few days she has had increasing sob, with a productive cough, fever and chills. Severe Sepsis, wbc 19.3, HR 114, lactic acid 3.0, suspect Pneumonia, right Bacteremia -Chest x-ray reviewed and shows a right lower lung atelectasis or consolidation -Legionella and pneumococcal urinary antigen negative -IV antibiotics Levaquin -Duo nebs scheduled and as needed, Symbicort -Blood cultures gram-positive cocci -Infectious disease consulted. -IV Vancomycin started. -Echocardiogram ordered. -IVF NS 20K @100ml/hr -Sputum culture ordered -O2 as needed, keep O2 sat greater than 90% COPD poss exacerbation with pneumonia -Continue DuoNeb scheduled and as needed as above, Symbicort -Current smoker still. -Nicotine patch Hypokalemia, potassium 3.2 -->3.3 -Replace as needed -Monitor potassium EtOH abuse -CIWA protocol -Seizure precautions -IV thiamine DVT prophylaxis: SCDs Code Status: Full code Discussed Condition With: Patient, nursing, Dr. Bosch Discharge Planning: Plan to DC home when clinically improved.
[2018-07-01 14:32] LABS: Amphetamine Screen,Urine Neg (Neg); Barbiturate Screen,Urine Neg (Neg); Cannabinoid Screen,Urine Neg (Neg); Cocaine Screen,Urine Neg (Neg)
[2018-07-01 14:37] LABS: Opiate Screen,Urine Neg (Neg)
--- NOTE | 2018-07-01 14:59 | P.CONID ---
History of Present Illness Service: Infectious Disease Consult date: 07/01/18 Requesting Physician: Khoa Jackson Reason for Consult: Evaluation and Mment of Sepsis, GP bacteremia. Primary Care Provider: UNKNOWN History of Present Illness: Most of the history was obtained by review of medical records as patient is altered mental status. is a 68 y/o homeless female with a history or COPD and etoh abuse, She reportedly presented to the ED with a cough and sob. Patient states for the last few days she has had increasing sob, with a productive cough, fever and chills. She states she does have a history of TB but has not had a reoccurrence lately. She denies any chest pain, headaches or dizziness. Patient was admitted to the regular floor. CXR shows infiltrate. Sepsis workup initiated. Blood cultures are positive for GP bacteria and ID consulted for the same. At the time of my evaluation, patient is on regular floor on room air. She is currently in restraints as she pulling on her IV lines and ID badge etc and wishes to go home. She appears to be withdrawing from Alcohol or other substances if any. She is restless, at times agitated and pulling on her restraints. She is poorly kempt and has dirt on her skin and foul smell from her clothes and body. Review of Systems unobtainable due to mental condition PMFSH - History History Provided By: Patient - Medical History Medical History: Medical History (Last Updated 06/30/18 @ 01:22 by CLIFFORD Damon) COPD (chronic obstructive pulmonary disease) ETOH abuse - Surgical History Surgical History: Surgical History (Last Updated 06/30/18 @ 01:22 by CLIFFORD Damon) H/O splenectomy H/O: hysterectomy - Family History Family History: Family History (Last Updated 06/30/18 @ 19:26 by CLIFFORD Damon) Other Family history unknown - Tobacco History Tobacco Use In Past 30 Days: Yes Smoking Status: Former smoker Tobacco Type: Cigarettes - Alcohol History How Often Do You Have a Drink Containing Alcohol: 4 or more times a week - Substance Use History Substance History: No History of Abuse - Travel History Recent Travel in the [place] Within the Last 8 Weeks: No Recent Travel Out of the Country Within the Last 8 Weeks: No - Immunization History Tetanus Immunization: Unsure Hx Influenza Vaccine This Season: No Medications and Allergies Active Medications: Active Medications Acetaminophen (Tylenol) 650 mg PO Q4H PRN PRN Reason: FEVER > 101 F Last Admin: 06/30/18 23:30 Dose: 650 mg Al Hydroxide/Mg Hydroxide (Milk Of Magnesia Liq) 30 ml PO Q12H PRN PRN Reason: Mild Constipation Albuterol (Duoneb Neb (Prn)) 1 ampul NEB Q4HR NEB PRN PRN Reason: WHEEZING Albuterol (Duoneb Neb (Christiano)) 1 ampul NEB Q6HR WHILE AWAKE NEB [facility]IANO Last Admin: 07/01/18 14:04 Dose: 1 ampul Bisacodyl (Dulcolax Supp) 10 mg RECTAL DAILY PRN PRN Reason: SEVERE CONSITIPATION Flumazenil (Romazecon Inj) 0.2 mg IV.PUSH Q1M PRN PRN Reason: OVERSEDATION Haloperidol Lactate (Haldol Inj) 1 mg IV.PUSH Q15M PRN PRN Reason: for severe agitation Last Admin: 07/01/18 10:49 Dose: 1 mg Sodium Chloride (Ns Inj) 1,000 mls @ 0 mls/hr IV.SIG [facility] Last Infusion: 06/30/18 05:32 Dose: Infused Potassium Chloride/Sodium Chloride (Ns + Kcl 20 Meq Inj) 1,000 mls @ 100 mls/ hr IV.CONT .Q10H [facility] Last Infusion: 07/01/18 11:27 Dose: Infused Vancomycin HCl 800 mg/ Sodium (Chloride) 258 mls @ 250 mls/hr IV.SIG Q12H [facility] Lactulose (Lactulose Liq) 30 ml PO DAILY PRN PRN Reason: SEVERE CONSITIPATION Levofloxacin (Levaquin) 750 mg PO Q24H [facility] Last Admin: 06/30/18 21:24 Dose: 750 mg Lorazepam (Ativan Inj) 1 mg IV.PUSH Q4H PRN PRN Reason: for CIWA 8-10 Last Admin: 07/01/18 11:22 Dose: 1 mg Lorazepam (Ativan Inj) 2 mg IV.PUSH Q15M PRN PRN Reason: for CIWA > 20 Last Admin: 07/01/18 08:30 Dose: 2 mg Lorazepam (Ativan Inj) 2 mg IV.PUSH Q1H PRN PRN Reason: for CIWA 15-20 Lorazepam (Ativan) 1 mg PO Q4H PRN PRN Reason: for CIWA 8-10 Last Admin: 07/01/18 13:22 Dose: 1 mg Lorazepam (Ativan) 2 mg PO Q2H PRN PRN Reason: for CIWA 11-14 Last Admin: 07/01/18 01:18 Dose: 2 mg Lorazepam (Ativan Inj) 2 mg IV.PUSH Q2H PRN PRN Reason: for CIWA 11-14 Miscellaneous Information ([facility] Ordered Lab Info) 0 each OTHER ONCE ONE Stop: 07/02/18 23:46 Pharmacy Profile Note (Vancomycin Consult Pharmacy) 1 each OTHER UNSCH PRN PRN Reason: Pharmacy to dose Sennosides (Senokot) 17.2 mg PO Q12H PRN PRN Reason: Moderate Constipation Allergies Allergy/AdvReac Type Severity Reaction Status Date / Time penicillin G Allergy Severe SOB Verified 06/29/18 21:10 Sulfa (Sulfonamide Allergy Severe Redness of Verified 06/29/18 21:10 Antibiotics) Skin Home Medications Medication Instructions Recorded Confirmed Type No Known Home Medications 06/29/18 06/29/18 History Exam Vital signs: Vital Signs 06/30/18 20:00 06/30/18 20:05 07/01/18 00:00 Temperature 100.0 F H 99.4 F Pulse Rate 87 74 85 Respiratory Rate 18 18 17 Blood Pressure 125/71 110/70 Pulse Oximetry 95 95 07/01/18 04:00 07/01/18 08:00 07/01/18 12:00 Temperature 98.0 F 99.4 F 98.9 F Pulse Rate 77 92 H 97 H Respiratory Rate 17 17 17 Blood Pressure 105/59 L 109/69 123/71 Pulse Oximetry 96 97 97 Intake & Output 06/30/18 07/01/18 07/01/18 18:59 06:59 18:59 Intake Total 240 / 240 1360 / 1360 1000 / 1000 Balance 240 / 240 1360 / 1360 1000 / 1000 Weight 52.163 kg Intake: IV 1000 / 1000 1000 / 1000 NS + KCl 20 mEq Inj 1,000 ML @ 1000 / 1000 100 mls/hr IV.CONT .Q10H [facility] Rx #:[id number] NS Inj 1,000 ML @ 100 mls/hr IV 1000 / 1000 .CONT .Q10H [facility] Rx#:[id number] Oral 240 / 240 360 / 360 Other: # Voids 3 5 Narrative: GENERAL: Poorly nourished Poorly kempt, poor hygiene, not in acute distress SKIN: Cool and dry, no generalized rash HEAD: Atraumatic. Normocephalic. No temporal or scalp tenderness. EYES: Pupils equal round and reactive. Scleral icterus. No injection or drainage. No petechia ENT: Nothing abnormal detected NECK: Trachea midline. Supple, nontender, no meningeal signs. CARDIOVASCULAR: HS audible. RESPIRATORY: Clear to auscultation bilaterally. GASTROINTESTINAL: Abdomen soft nontender. MUSCULOSKELETAL: Extremities without clubbing, cyanosis. NEUROLOGICAL: Alert oriented 3. Nonfocal. Psych agitated and restless at times. IV line sites ok. Results - Labs CBC & Chem 7: 07/01/18 07:51 06/30/18 06:05 Labs: Laboratory Results - last 24 hr 06/30/18 07/01/18 07/01/18 15:32 07:51 13:20 WBC 10.8 RBC 2.41 L Hgb 8.6 L D Hct 25.4 L MCV 105.4 H MCH 35.9 H MCHC 34.0 RDW 13.5 Plt Count 337 D MPV 8.2 Neut % (Auto) 67.1 Lymph % (Auto) 17.1 [place] % (Auto) 13.4 H Eos % (Auto) 1.8 Baso % (Auto) 0.6 Neut # (Auto) 7.3 Lymph # (Auto) 1.9 [place] # (Auto) 1.4 H Eos # (Auto) 0.2 Baso # (Auto) 0.1 WBC Differential . Differential Comment Auto diff final Procalcitonin 37.78 H Urine Opiates Screen Neg Ur Barbiturates Screen Neg Ur Amphetamines Screen Neg U Benzodiazepines Scrn Neg Urine Cocaine Screen Neg U Cannabinoids Screen Neg - Imaging Chest X-Ray 06/29/18 21:20 CONCLUSION: Right lower lung atelectasis or consolidation. Chronic calcification seen throughout the mid and upper lungs being more prominent on the left. Assessment and Plan - Plan Sepsis present on admission Pneumonia ? aspiration vs CAP. H/o TB in past reportedly treated. Gram positive bacteremia: ? PNA ? Endocarditis. Alcoholism, appears to be withdrawing. COPD history Acute metabolic encephalopathy: alcohol, sepsis, metabolic. Penicillin allergy Recs: Continue Levaquin (atypical as well as CAP coverage) Continue Vanco IV Suspect aspiration as cause for pneumonia and sepsis. Suspect Bacteremia is CGNS may be contaminant as patient hygiene extremely poor. Will get RN to get patient cleaned up and redraw blood cultures after thorough cleaning and prep of skin. If bacteremia persists will need further workup. No obvious skin source at the present time. Continue Vanco IV till we can sort this further. Check 2 D ECHO to r/o endocarditis. Trace family with help of wind power project manager or Palliative care consult to help address goals of therapy. Follow cultures Follow clinically.
[2018-07-01] MEDS ORDERED: Multivitamin Inj 10 ML, Thiamine Inj 100 MG, Folic Acid Inj 1 MG in Sodium Chloride 0.4... IV.SIG ONE (17:00)
[2018-07-01 19:19] LABS: Anion Gap 9 meq/L (5-15); Blood Urea Nitrogen 2 mg/dL (7-18); Calcium 8.3 mg/dL (8.5-10.1); Carbon Dioxide 24.4 meq/L (21.0-32.0); Chloride 104 meq/L (98-107); Glomerular Filtration Rate Greater Than 89 mL/min (>89); Glucose,Random 101 mg/dL (74-106); Potassium 3.4 meq/L (3.5-5.1); Sodium 137 meq/L (136-145)
[2018-07-01] MEDS: levoFLOXacin 750 MG Tablet PO SCH (21:13)
[2018-07-01] MEDS: Vancomycin Inj 800 MG in Sodium Chlor 0.9% Inj 250 ML IV.SIG SCH (23:52)
[2018-07-02] MEDS ORDERED: Multivitamin Inj 10 ML, Thiamine Inj 100 MG, Folic Acid Inj 1 MG in Sodium Chloride 0.4... IV.SIG ONE (01:00)
[2018-07-02] MEDS: LORazepam 1 MG Tablet PO PRN ×2 (02:51→09:06)
[2018-07-02 09:56] LABS: Baso # (Auto) 0.1 th/mm3 (0.0-0.2); Baso % (Auto) 0.7 % (0.0-2.0); Eos # (Auto) 0.1 th/mm3 (0.0-0.4); Eos % (Auto) 1.1 % (0.0-4.0); Hematocrit 36.5 % (35.0-46.0); Hemoglobin 12.8 gm/dL (11.6-15.3); Lymph # (Auto) 2.9 th/mm3 (1.0-4.8); Lymph % (Auto) 23.6 % (9.0-44.0); Mean Corpuscular Hemoglobin 35.9 pg (27.0-34.0); Mean Corpuscular Volume 102.5 fL (80.0-100.0); Mean Platelet Volume 7.9 fL (7.0-11.0); Mono # (Auto) 1.2 th/mm3 (0.0-0.9); Mono % (Auto) 9.9 % (0.0-8.0); Neut # (Auto) 7.9 th/mm3 (1.8-7.7); Neut % (Auto) 64.7 % (16.0-70.0); Platelet Count 538 th/mm3 (150-450); Red Blood Count 3.56 mil/mm3 (4.00-5.30); Red Cell Distribution Width 13.2 % (11.6-17.2); White Blood Count 12.1 th/mm3 (4.0-11.0)
[2018-07-02 10:19] LABS: Anion Gap 10 meq/L (5-15); Blood Urea Nitrogen 2 mg/dL (7-18); Calcium 8.5 mg/dL (8.5-10.1); Carbon Dioxide 24.9 meq/L (21.0-32.0); Chloride 102 meq/L (98-107); Glomerular Filtration Rate Greater Than 89 mL/min (>89); Glucose,Random 117 mg/dL (74-106); Potassium 3.3 meq/L (3.5-5.1); Sodium 137 meq/L (136-145)
[2018-07-02 10:41] LABS: Lymphocytes 19 % (9-44); Metamyelocytes 1 % (0-1); Monocytes 5 % (0-8); Promyelocyte 1 % (0-0)
[2018-07-02 10:46] LABS: Howell-Jolly Bodies Present; Platelet Morphology Normal (Normal)
[2018-07-02] MEDS: Potassium Chlor 10 mEq Premix 10 MEQ/100 ML PIGGYBACK IV.SIG SCH ×3 (13:17→18:15)
[2018-07-02] MEDS: Vancomycin Inj 800 MG in Sodium Chlor 0.9% Inj 250 ML IV.SIG SCH (13:21)
--- NOTE | 2018-07-02 13:57 | P.CONPAL ---
Consult Service: Palliative Care Requesting Physician: Emily Hicks Reason for Consult: a. To assist with evaluation and management of symptoms including: cough, dyspnea, confusion b. To assist medical decision maker(s) with: better understanding of current medical conditions; weighing benefits/burdens of medical treatment options; making medical treatment decisions. Primary Care Provider: UNKNOWN History of Present Illness History of Present Illness: Patient is a 68 year old homeless, female who presented to [facility] [facility] ED on 2017 for evaluation of a productive cough with yellow phlegm 3 days. Patient has a history of COPD and tuberculosis. She has had multiple lung infections but denied recurrence of her TB. Patient also complained of redness and itchiness to her left lower eyelid and a history of conjunctivitis; no purulent drainage was noted on exam. Diagnostics data: * Vital signs: Pulse 114, respirations 12, BP 144/90, oral temperature 99.2 * WBC: 19.3, hemoglobin 13.3, hematocrit 39.1, platelets 578, neutrophils 58.1% * Sodium: 138, potassium 3.2, chloride 103, carbon dioxide 24.6, glucose 93, calcium 9.1 * BUN: 5, creatinine 0.54, GFR 89 * Serum alcohol: 250 * Chest x-ray showed right lower lung atelectasis or consolidation; chronic calcification seen throughout the mid and upper lungs being more prominent on the left. Patient had what appeared to be chronic left eye conjunctivitis. There was no evidence of uptake on the cornea with fluorescein. Chest x-ray showed consolidation in the right base. There were also middle lung changes worse on the left than the right. WBC was elevated at 19,000. Lactic acid: 3.0 she was started on Rocephin and Zithromax. Potassium was low at 3.2 and the patient was given a potassium supplement. Infectious disease was consulted secondary to gram-positive bacteremia. Follow- up blood cultures on 07/01/2018 with no growth in 1 day. Patient remains on Levaquin and vancomycin. Echocardiogram pending to rule out endocarditis. Palliative Care was consulted to assist with symptom management and to discuss with the family the benefits and burdens of her current illnesses and the options regarding future care. Patient is confused on exam. Nursing reports patient is attempting to pull out her IV and trying to kick them. Patient lacks insight toward her medical conditions; it is unclear if the patient will regain capacity. If her mentation does not improve in the upcoming days, we will need to run an accurate report in an attempt to locate possible family members. Review of Systems other (Limited ROS due to altered mental status) Constitutional: Reports malaise Eyes: Reports irritation (left lower lid redness), Reports itchy eyes Respiratory: Reports change in phlegm color (yellow), Reports chest congestion, Reports cough PMFSH - History History Provided By: Patient - Medical History Medical History: Medical History (Last Reviewed 07/02/18 @ 14:21 by CLIFFORD Altamirano) History of tuberculosis (Acute) COPD (chronic obstructive pulmonary disease) ETOH abuse Tuberculosis - Surgical History Surgical History: Surgical History (Last Reviewed 07/02/18 @ 14:21 by CLIFFORD Altamirano) H/O splenectomy H/O: hysterectomy - Family History Family History: Family History (Last Reviewed 07/02/18 @ 14:21 by CLIFFORD Altamirano) Other Family history unknown - Tobacco History Tobacco Use In Past 30 Days: Yes Smoking Status: Former smoker Tobacco Type: Cigarettes - Alcohol History How Often Do You Have a Drink Containing Alcohol: 4 or more times a week - Substance Use History Substance History: Active Abuse - Substance Use Type Alcohol Status: Active Route Used: By Mouth - Travel History Recent Travel in the [place] Within the Last 8 Weeks: No Recent Travel Out of the Country Within the Last 8 Weeks: No - Immunization History Tetanus Immunization: Unsure Hx Influenza Vaccine This Season: No Medications and Allergies Active Medications: Active Medications Acetaminophen (Tylenol) 650 mg PO Q4H PRN PRN Reason: FEVER > 101 F Last Admin: 06/30/18 23:30 Dose: 650 mg Al Hydroxide/Mg Hydroxide (Milk Of Mendez Lirachel) 30 ml PO Q12H PRN PRN Reason: Mild Constipation Albuterol (Duoneb Neb (Prn)) 1 ampul NEB Q4HR NEB PRN PRN Reason: WHEEZING Albuterol (Duoneb Neb (Christiano)) 1 ampul NEB Q6HR WHILE AWAKE NEB CHRISTIANO Last Admin: 07/02/18 11:53 Dose: 1 ampul Bisacodyl (Dulcolax Supp) 10 mg RECTAL DAILY PRN PRN Reason: SEVERE CONSITIPATION Flumazenil (Romazecon Inj) 0.2 mg IV.PUSH Q1M PRN PRN Reason: OVERSEDATION Haloperidol Lactate (Haldol Inj) 1 mg IV.PUSH Q15M PRN PRN Reason: for severe agitation Last Admin: 07/01/18 10:49 Dose: 1 mg Sodium Chloride (Ns Inj) 1,000 mls @ 0 mls/hr IV.SIG BOLUS CHRISTIANO Last Infusion: 06/30/18 05:32 Dose: Infused Potassium Chloride/Sodium Chloride (Ns + Kcl 20 Meq Inj) 1,000 mls @ 100 mls/ hr IV.CONT .Q10H CHRISTIANO Last Admin: 07/02/18 01:38 Dose: 100 mls/hr Vancomycin HCl 800 mg/ Sodium (Chloride) 258 mls @ 250 mls/hr IV.SIG Q12H CHRISTIANO Last Admin: 07/02/18 13:21 Dose: 250 mls/hr Potassium Chloride (Kcl 10 Meq Premix Inj) 10 meq in 100 mls @ 100 mls/hr IV.SIG Q1H CHRISTIANO Stop: 07/02/18 13:59 Last Admin: 07/02/18 13:17 Dose: 100 mls/hr Lactulose (Lactulose Liq) 30 ml PO DAILY PRN PRN Reason: SEVERE CONSITIPATION Levofloxacin (Levaquin) 750 mg PO Q24H [facility] Last Admin: 07/01/18 21:13 Dose: 750 mg Lorazepam (Ativan Inj) 1 mg IV.PUSH Q4H PRN PRN Reason: for CIWA 8-10 Last Admin: 07/01/18 11:22 Dose: 1 mg Lorazepam (Ativan Inj) 2 mg IV.PUSH Q15M PRN PRN Reason: for CIWA > 20 Last Admin: 07/01/18 08:30 Dose: 2 mg Lorazepam (Ativan Inj) 2 mg IV.PUSH Q1H PRN PRN Reason: for CIWA 15-20 Lorazepam (Ativan) 1 mg PO Q4H PRN PRN Reason: for CIWA 8-10 Last Admin: 07/02/18 09:06 Dose: 1 mg Lorazepam (Ativan) 2 mg PO Q2H PRN PRN Reason: for CIWA 11-14 Last Admin: 07/02/18 00:05 Dose: 2 mg Lorazepam (Ativan Inj) 2 mg IV.PUSH Q2H PRN PRN Reason: for CIWA 11-14 Miscellaneous Information ([facility] Ordered Lab Info) 0 each OTHER ONCE ONE Stop: 07/02/18 23:46 Multivitamins (Theragran) 1 tab PO DAILY [facility] Last Admin: 07/02/18 09:09 Dose: 1 tab Pharmacy Profile Note (Vancomycin Consult Pharmacy) 1 each OTHER UNSCH PRN PRN Reason: Pharmacy to dose Sennosides (Senokot) 17.2 mg PO Q12H PRN PRN Reason: Moderate Constipation Thiamine HCl (Vitamin B1) 100 mg PO BID [facility] Last Admin: 07/02/18 09:06 Dose: 100 mg Allergies Allergy/AdvReac Type Severity Reaction Status Date / Time penicillin G Allergy Severe SOB Verified 06/29/18 21:10 Sulfa (Sulfonamide Allergy Severe Redness of Verified 06/29/18 21:10 Antibiotics) Skin Home Medications Medication Instructions Recorded Confirmed Type No Known Home Medications 06/29/18 06/29/18 History Advance Directives Living Will: No Healthcare Surrogate: No Today's verbally stated goals: Patient is confused with limited insight related to medical condition. Goals remain aggressive by default. Ethical and Legal Issues: If patient's mental status vila not improve, will need to run an accurints in an attempt to find possible family members. Physical Exam Vital Signs: Vital Signs - 24 hr 07/01/18 16:00 07/01/18 20:00 07/02/18 00:00 Temperature 98.4 F 98.1 F 98.6 F Pulse Rate 111 H 76 120 H Respiratory Rate 17 17 17 Blood Pressure 138/81 185/77 H 132/81 Pulse Oximetry 95 97 95 07/02/18 04:00 07/02/18 08:00 07/02/18 08:04 Temperature 97.1 F L 97.8 F Pulse Rate 100 H 92 H 91 H Respiratory Rate 18 18 16 Blood Pressure 144/83 H 111/60 Pulse Oximetry 95 95 07/02/18 11:53 07/02/18 12:00 Temperature 97.1 F L Pulse Rate 83 99 H Respiratory Rate 18 18 Blood Pressure 139/63 Pulse Oximetry 97 I&O: Intake & Output 06/30/18 07/01/18 07/02/18 07/03/18 06:59 06:59 06:59 06:59 Intake Total 1390 / 1390 1600 / 1600 2249.2 / 2249.2 Output Total 4200 / 4200 Balance 1390 / 1390 1600 / 1600 -1950.8 / -1950.8 Weight 54.431 kg 52.163 kg 50.9 kg Physical Exam: CONSTITUTIONAL/GENERAL: This is an disheveled, confused female in no acute distress TUBES/LINES/DRAINS: PIV SKIN: No rashes or lesions. Ecchymoses on upper extremities. No wounds seen anteriorly. Skin temperature appropriate. Not diaphoretic. HEAD: Atraumatic. Normocephalic. EYES: Pupils equal and round and reactive. Scleral icterus. No injection or drainage. Fundi not examined. ENT: Hearing grossly normal. Nose without bleeding or purulent drainage. Throat without visible erythema, exudates, masses, or lesions. NECK: Trachea midline. Supple, nontender. No palpable thyroid enlargement or nodularity. CARDIOVASCULAR: Regular rate and rhythm without murmurs, gallops, or rubs. No JVD. Peripheral pulses symmetric. RESPIRATORY/CHEST: Symmetric, unlabored respirations. Breath sounds equal bilaterally. No wheezes, rales, or rhonchi. No use of accessory muscles GASTROINTESTINAL: Abdomen soft, non-tender, nondistended. Bowel sounds present. GENITOURINARY: Without palpable bladder distension. Ruiz catheter in place. MUSCULOSKELETAL: Extremities without clubbing, cyanosis, or edema. Muscle wasting noted in bilateral lower extremities LYMPHATICS: No palpable cervical or supraclavicular adenopathy. NEUROLOGICAL: Oriented to self only. Confused. Speech is at times nonsensical able to answer some simple questions; follow simple commands PSYCHIATRIC: No obvious anxiety/depression. No apparent hallucinations or other psychotic thought process. Diagnostic Tests Laboratory: Laboratory Results - last 72 hr 06/29/18 06/29/18 06/30/18 21:28 21:28 03:14 WBC 19.3 H RBC 3.73 L Hgb 13.3 Hct 39.1 MCV 104.6 H MCH 35.5 H MCHC 34.0 RDW 13.8 Plt Count 578 H MPV 8.3 Prelim Diff (Auto) Slide review pending Neut % (Auto) 58.1 Lymph % (Auto) 30.1 Cavalier % (Auto) 10.0 H Eos % (Auto) 1.1 Baso % (Auto) 0.7 Neut # (Auto) 11.2 H Lymph # (Auto) 5.8 H Cavalier # (Auto) 1.9 H Eos # (Auto) 0.2 Baso # (Auto) 0.1 WBC Differential Manual diff final Seg Neuts % (Manual) 47 Band Neuts % (Manual) 16 H Lymphocytes % (Manual) 24 Monocytes % (Manual) 10 H Eosinophils % (Manual) 3 Metamyelocytes % (Man) Promyelocytes % (Man) Abs Neuts (Manual) 12.2 H Differential Comment . Platelet Estimate High H Platelet Morphology Normal Basophilic Stippling Moran-Frankewing Bodies Sodium 138 Potassium 3.2 L Chloride 103 Carbon Dioxide 24.6 Anion Gap 10 BUN 5 L Creatinine 0.54 Estimated GFR Greater than 89 Random Glucose 93 Lactic Acid 3.0 H Calcium 9.1 Prot Corrected Calcium Total Bilirubin AST ALT Alkaline Phosphatase Total Protein Albumin Procalcitonin Urine Opiates Screen Ur Barbiturates Screen Ur Amphetamines Screen U Benzodiazepines Scrn Urine Cocaine Screen U Cannabinoids Screen Serum Alcohol 250 H 06/30/18 06/30/18 06/30/18 05:58 06:05 06:05 WBC 14.8 H RBC 3.11 L Hgb 10.9 L D Hct 33.0 L MCV 106.2 H MCH 35.2 H MCHC 33.1 RDW 13.7 Plt Count 482 H MPV 8.0 Prelim Diff (Auto) Neut % (Auto) 71.7 H Lymph % (Auto) 15.6 Cavalier % (Auto) 10.8 H Eos % (Auto) 1.3 Baso % (Auto) 0.6 Neut # (Auto) 10.6 H Lymph # (Auto) 2.3 Cavalier # (Auto) 1.6 H Eos # (Auto) 0.2 Baso # (Auto) 0.1 WBC Differential . Seg Neuts % (Manual) Band Neuts % (Manual) Lymphocytes % (Manual) Monocytes % (Manual) Eosinophils % (Manual) Metamyelocytes % (Man) Promyelocytes % (Man) Abs Neuts (Manual) Differential Comment Auto diff final Platelet Estimate Platelet Morphology Basophilic Stippling Moran-Frankewing Bodies Sodium 141 Potassium 3.3 L Chloride 107 Carbon Dioxide 22.1 Anion Gap 12 BUN 3 L Creatinine 0.29 L Estimated GFR Greater than 89 Random Glucose 81 Lactic Acid 1.8 Calcium 7.3 L* D Prot Corrected Calcium 7.8 L Total Bilirubin 0.3 AST 29 ALT 24 Alkaline Phosphatase 214 H Total Protein 6.2 L Albumin 2.0 L Procalcitonin Urine Opiates Screen Ur Barbiturates Screen Ur Amphetamines Screen U Benzodiazepines Scrn Urine Cocaine Screen U Cannabinoids Screen Serum Alcohol 06/30/18 07/01/18 07/01/18 15:32 07:51 13:20 WBC 10.8 RBC 2.41 L Hgb 8.6 L D Hct 25.4 L MCV 105.4 H MCH 35.9 H MCHC 34.0 RDW 13.5 Plt Count 337 D MPV 8.2 Prelim Diff (Auto) Neut % (Auto) 67.1 Lymph % (Auto) 17.1 Cavalier % (Auto) 13.4 H Eos % (Auto) 1.8 Baso % (Auto) 0.6 Neut # (Auto) 7.3 Lymph # (Auto) 1.9 Cavalier # (Auto) 1.4 H Eos # (Auto) 0.2 Baso # (Auto) 0.1 WBC Differential . Seg Neuts % (Manual) Band Neuts % (Manual) Lymphocytes % (Manual) Monocytes % (Manual) Eosinophils % (Manual) Metamyelocytes % (Man) Promyelocytes % (Man) Abs Neuts (Manual) Differential Comment Auto diff final Platelet Estimate Platelet Morphology Basophilic Stippling Moran-Frankewing Bodies Sodium Potassium Chloride Carbon Dioxide Anion Gap BUN Creatinine Estimated GFR Random Glucose Lactic Acid Calcium Prot Corrected Calcium Total Bilirubin AST ALT Alkaline Phosphatase Total Protein Albumin Procalcitonin 37.78 H Urine Opiates Screen Neg Ur Barbiturates Screen Neg Ur Amphetamines Screen Neg U Benzodiazepines Scrn Neg Urine Cocaine Screen Neg U Cannabinoids Screen Neg Serum Alcohol 07/01/18 07/02/18 07/02/18 18:30 09:47 09:47 WBC 12.1 H RBC 3.56 L Hgb 12.8 D Hct 36.5 MCV 102.5 H MCH 35.9 H MCHC 35.0 RDW 13.2 Plt Count 538 H D MPV 7.9 Prelim Diff (Auto) Slide review pending Neut % (Auto) 64.7 Lymph % (Auto) 23.6 Cavalier % (Auto) 9.9 H Eos % (Auto) 1.1 Baso % (Auto) 0.7 Neut # (Auto) 7.9 H Lymph # (Auto) 2.9 Cavalier # (Auto) 1.2 H Eos # (Auto) 0.1 Baso # (Auto) 0.1 WBC Differential Manual diff final Seg Neuts % (Manual) 67 Band Neuts % (Manual) 7 H Lymphocytes % (Manual) 19 Monocytes % (Manual) 5 Eosinophils % (Manual) Metamyelocytes % (Man) 1 Promyelocytes % (Man) 1 H Abs Neuts (Manual) 9.2 H Differential Comment . Platelet Estimate High H Platelet Morphology Normal Basophilic Stippling Faint H Moarn-Frankewing Bodies Present H Sodium 137 137 Potassium 3.4 L 3.3 L Chloride 104 102 Carbon Dioxide 24.4 24.9 Anion Gap 9 10 BUN 2 L 2 L Creatinine 0.38 L 0.32 L Estimated GFR Greater than 89 Greater than 89 Random Glucose 101 117 H Lactic Acid Calcium 8.3 L D 8.5 Prot Corrected Calcium Total Bilirubin AST ALT Alkaline Phosphatase Total Protein Albumin Procalcitonin Urine Opiates Screen Ur Barbiturates Screen Ur Amphetamines Screen U Benzodiazepines Scrn Urine Cocaine Screen U Cannabinoids Screen Serum Alcohol Result Diagrams: 07/02/18 09:47 07/02/18 09:47 Microbiology: Microbiology 06/30/18 15:32 Aerobic Blood Culture - Final Blood - Peripheral Staphylococcus coag negative Anaerobic Blood Culture - Final Staphylococcus coag negative 06/30/18 01:05 Aerobic Blood Culture - Final Blood - Peripheral Staphylococcus coag negative Anaerobic Blood Culture - Final Staphylococcus coag negative 07/01/18 18:30 Aerobic Blood Culture - Preliminary Blood - Peripheral No growth in 1 day Anaerobic Blood Culture - Preliminary No growth in 1 day 07/01/18 18:25 Aerobic Blood Culture - Preliminary Blood - Peripheral No growth in 1 day Anaerobic Blood Culture - Preliminary No growth in 1 day 06/30/18 03:11 Streptococcus pneumoniae Antigen (M - Final Urine - Clean Catch Urine Presumptive negative for streptococcus pneumoniae antigen, suggesting no current or recent infection. Infection due to Streptococcus pneumoniae cannot be ruled out since the antigen present in the sample may be below the detection limit of the test. 06/30/18 03:11 Legionella Antigen - Final Urine - Clean Catch Urine Presumptive negative for Legionella pneumophila serogroup 1 antigen in urine, suggesting no recent or recurrent infection. Infection due to Legionella cannot be ruled out since other serogroups and species may cause disease, antigen may not be present in urine in early infection, and the level of antigen present in the urine may be below the detection limit of the test. Imaging: Chest X-Ray 06/29/18 21:20 CONCLUSION: Right lower lung atelectasis or consolidation. Chronic calcification seen throughout the mid and upper lungs being more prominent on the left. Patient/Family Conference Present at Family Conference: Met with patient, who is confused, at bedside. Family Conference Location: Bedside Issues Discussed: * Palliative care role, purpose, approach * Additional medical and psychosocial history Assessment and Plan - Disease Oriented Problem List (1) COPD (chronic obstructive pulmonary disease) (2) Acute metabolic encephalopathy (3) Sepsis (4) Coag negative Staphylococcus bacteremia (5) Conjunctivitis (6) Leukocytosis (7) Alcohol abuse with intoxication (8) History of tuberculosis - Symptom Scale (1) Cough 0-10 Scale: 1 (2) Confusion 0-10 Scale: Unable to quantify Comment: Acute metabolic encephalopathy. Possible contributing factors include EtOH abuse/withdrawal, sepsis, metabolic (3) SOB (shortness of breath) Comment: = Patient denies SOB on exam. = History of COPD and previous tuberculosis without recurrence = Chest x-ray showing infiltrates Pertinent Non-Medical Issues: Psychosocial: Patient is originally from [place], [place]. Patient left [place] when she was 19 years old. She states she has no family left and has no friends/contacts that she would want notified of her hospitalization Spiritual: Patient denies episcopalian affiliation Legal: Patient currently lacks capacity for medical decision-making. If her mental status does not improve in the upcoming days, we will need to run an accurate in an attempt to find patient's family. Ethical issues impacting care: No known ethical issues impacting care. Important Contacts: No known family members, friends or contacts Prognosis: Patient is a encephalopathic, disheveled, homeless 68-year-old female with a history of COPD, previous TB and EtOH abuse who currently hospitalized for medical management of sepsis, possible EtOH withdrawal. Patient is acutely encephalopathic and lacks insight related to her medical conditions. It is unclear if patient will regain insight; she is at risk for compensation and functional decline. Code Status: Full Code Plan: * FULL CODE * Decision making: Patient is confused; lacks capacity for medical decision making. If patient's mental status vila not improve, will need to run an accurints in an attempt to find possible family members. * Goals remain aggressive by default * Symptom management: = Dyspnea/cough: Patient presented with complaints of cough and dyspnea. She has a history of TB in the past (reportedly treated) and COPD. Chest x-ray showing right lower lung atelectasis or consolidation. Suspect aspiration as cause for pneumonia and sepsis. = Confusion: Acute encephalopathy likely multifactorial. Patient is currently in restraints. Staff reports she has been trying to pull out her IV and kicking at them. Contributing factors likely include metabolic encephalopathy, sepsis, EtOH abuse/withdrawal. CIWA protocol ordered. PRN Lorazepam and Haldol available * Palliative care will follow this patient throughout her hospitalization to establish trust, assist with symptom management, assist with locating appropriate healthcare proxy decision-maker and clarification of medical treatment goals Appreciation Thank you for the opportunity to participate in the care of Johanna Kruse. Attestation Attestation: To help prompt me to consider important information that might be impacting today's encounter and assessment, information from prior notes written by myself or my colleagues may have been "brought forward" into today's note. My signature on this note, however, is an attestation that I personally performed the exam, history, and/or decision-making noted today, and, unless otherwise indicated, the interactions with patient, family, and staff as well as the review of records all occurred today. I also attest that the listed assessment and stated plan reflect my best clinical judgment today based on the combination of historical information, prior notes, and today's exam/ interactions. When time spent is documented, it refers only to time spent today by the signer, or if indicated, combined time spent today by collaborating physician/nurse practitioner.
--- NOTE | 2018-07-02 15:32 | P.PNID ---
Subjective Remarks: is a 68 y/o homeless female with a history or COPD and etoh abuse, She reportedly presented to the ED with a cough and sob. Patient states for the last few days she has had increasing sob, with a productive cough, fever and chills. She states she does have a history of TB but has not had a reoccurrence lately. She denies any chest pain, headaches or dizziness. Patient was admitted to the regular floor. CXR shows infiltrate. Sepsis workup initiated. Blood cultures are positive for GP bacteria and ID consulted for the same. At the time of my evaluation, patient is on regular floor on room air. She is currently in restraints as she pulling on her IV lines and ID badge etc and wishes to go home. She appears to be withdrawing from Alcohol or other substances if any. She is restless, at times agitated and pulling on her restraints. She is poorly kempt and has dirt on her skin and foul smell from her clothes and body. Overnight events reviewed No fever No rash No diarrhea Antibiotics: Levaquin Vanco IV Lines: Lines ok Past Medical History: reviewed Allergies/Adverse Reactions: Allergies penicillin G Allergy (Severe, Verified 06/29/18 21:10) SOB Sulfa (Sulfonamide Antibiotics) Allergy (Severe, Verified 06/29/18 21:10) Redness of Skin Objective Vital Signs 07/01/18 16:00 07/01/18 20:00 07/02/18 00:00 Temperature 98.4 F 98.1 F 98.6 F Pulse Rate 111 H 76 120 H Respiratory Rate 17 17 17 Blood Pressure 138/81 185/77 H 132/81 Pulse Oximetry 95 97 95 07/02/18 04:00 07/02/18 08:00 07/02/18 08:04 Temperature 97.1 F L 97.8 F Pulse Rate 100 H 92 H 91 H Respiratory Rate 18 18 16 Blood Pressure 144/83 H 111/60 Pulse Oximetry 95 95 07/02/18 11:53 07/02/18 12:00 Temperature 97.1 F L Pulse Rate 83 99 H Respiratory Rate 18 18 Blood Pressure 139/63 Pulse Oximetry 97 Intake & Output 07/01/18 07/02/18 07/02/18 18:59 06:59 18:59 Intake Total 1480 / 1480 769.2 / 769.2 Output Total 4000 / 4000 200 / 200 Balance -2520 / -2520 569.2 / 569.2 Weight 50.9 kg Intake: IV 1000 / 1000 769.2 / 769.2 NS + KCl 20 mEq Inj 1,000 ML @ 1000 / 1000 100 mls/hr IV.CONT .Q10H [facility] Rx #:[id number] MVI-12 Inj 10 ML Thiamine Inj 511.2 / 511.2 100 MG Folvite Inj 1 MG In 1/2 Normal Saline Inj 500 ML @ 127. 8 mls/hr IV.SIG ONCE ONE Rx#: [id number] Vancomycin Inj 800 MG In NS Inj 258 / 258 250 ML @ 250 mls/hr IV.SIG Q12H [facility] Rx#:[id number] Oral 480 / 480 Output: Urine 4000 / 4000 200 / 200 Other: # Voids 5 3 06/30/18 15:32 Blood - Peripheral Aerobic Blood Culture - Final Staphylococcus coag negative 06/30/18 15:32 Blood - Peripheral Anaerobic Blood Culture - Final Staphylococcus coag negative 06/30/18 01:05 Blood - Peripheral Aerobic Blood Culture - Final Staphylococcus coag negative 06/30/18 01:05 Blood - Peripheral Anaerobic Blood Culture - Final Staphylococcus coag negative 07/01/18 18:30 Blood - Peripheral Aerobic Blood Culture - Preliminary No growth in 1 day 07/01/18 18:30 Blood - Peripheral Anaerobic Blood Culture - Preliminary No growth in 1 day 07/01/18 18:25 Blood - Peripheral Aerobic Blood Culture - Preliminary No growth in 1 day 07/01/18 18:25 Blood - Peripheral Anaerobic Blood Culture - Preliminary No growth in 1 day 06/30/18 03:11 Urine - Clean Catch Urine Streptococcus pneumoniae Antigen ( M - Final Presumptive negative for streptococcus pneumoniae antigen, suggesting no current or recent infection. Infection due to Streptococcus pneumoniae cannot be ruled out since the antigen present in the sample may be below the detection limit of the test. 06/30/18 03:11 Urine - Clean Catch Urine Legionella Antigen - Final Presumptive negative for Legionella pneumophila serogroup 1 antigen in urine, suggesting no recent or recurrent infection. Infection due to Legionella cannot be ruled out since other serogroups and species may cause disease, antigen may not be present in urine in early infection, and the level of antigen present in the urine may be below the detection limit of the test. Lab - Hematology Results 07/01/18 07/02/18 07:51 09:47 WBC 10.8 12.1 H RBC 2.41 L 3.56 L Hgb 8.6 L D 12.8 D Hct 25.4 L 36.5 MCV 105.4 H 102.5 H MCH 35.9 H 35.9 H MCHC 34.0 35.0 RDW 13.5 13.2 Plt Count 337 D 538 H D MPV 8.2 7.9 Prelim Diff (Auto) Slide review pending Neut % (Auto) 67.1 64.7 Lymph % (Auto) 17.1 23.6 [place] % (Auto) 13.4 H 9.9 H Eos % (Auto) 1.8 1.1 Baso % (Auto) 0.6 0.7 Neut # (Auto) 7.3 7.9 H Lymph # (Auto) 1.9 2.9 [place] # (Auto) 1.4 H 1.2 H Eos # (Auto) 0.2 0.1 Baso # (Auto) 0.1 0.1 WBC Differential . Manual diff final Seg Neuts % (Manual) 67 Band Neuts % (Manual) 7 H Lymphocytes % (Manual) 19 Monocytes % (Manual) 5 Metamyelocytes % (Man) 1 Promyelocytes % (Man) 1 H Abs Neuts (Manual) 9.2 H Differential Comment Auto diff final . Platelet Estimate High H Platelet Morphology Normal Basophilic Stippling Faint H [place] Bodies Present H Lab - Chemistry Results 06/30/18 07/01/18 07/02/18 15:32 18:30 09:47 Sodium 137 137 Potassium 3.4 L 3.3 L Chloride 104 102 Carbon Dioxide 24.4 24.9 Anion Gap 9 10 BUN 2 L 2 L Creatinine 0.38 L 0.32 L Estimated GFR Greater than 89 Greater than 89 Random Glucose 101 117 H Calcium 8.3 L D 8.5 Procalcitonin 37.78 H Imaging: ITS Impressions Chest X-Ray 06/29/18 21:20 CONCLUSION: Right lower lung atelectasis or consolidation. Chronic calcification seen throughout the mid and upper lungs being more prominent on the left. Physical Exam: GENERAL: Poorly nourished Poorly kempt, poor hygiene, not in acute distress SKIN: Cool and dry, no generalized rash HEAD: Atraumatic. Normocephalic. No temporal or scalp tenderness. EYES: Pupils equal round and reactive. Scleral icterus. No injection or drainage. No petechia ENT: Nothing abnormal detected NECK: Trachea midline. Supple, nontender, no meningeal signs. CARDIOVASCULAR: HS audible. RESPIRATORY: Clear to auscultation bilaterally. GASTROINTESTINAL: Abdomen soft nontender. MUSCULOSKELETAL: Extremities without clubbing, cyanosis. NEUROLOGICAL: Non focal. Confused. Psych agitated and restless at times. IV line sites ok. Assessment and Plan - Plan Sepsis present on admission Pneumonia ? aspiration vs CAP. H/o TB in past reportedly treated. Gram positive bacteremia: ? PNA ? Endocarditis. Alcoholism, appears to be withdrawing. COPD history Acute metabolic encephalopathy: alcohol, sepsis, metabolic. Penicillin allergy Recs: Continue Levaquin (atypical as well as CAP coverage) Continue Vanco IV Suspect aspiration as cause for pneumonia and sepsis. Suspect Bacteremia is CGNS may be contaminant as patient hygiene extremely poor. If bacteremia persists will need further workup. No obvious skin source at the present time. Check 2 D ECHO to r/o endocarditis. Follow cultures Follow clinically. I will be OOT from 07/03/18 to 07/07/2018. Other ID MDs covering for me.
--- NOTE | 2018-07-02 17:19 | P.PNIM ---
Physical Exam Vital signs: Vital Signs 07/01/18 20:00 07/02/18 00:00 07/02/18 04:00 Temperature 98.1 F 98.6 F 97.1 F L Pulse Rate 76 120 H 100 H Respiratory Rate 17 17 18 Blood Pressure 185/77 H 132/81 144/83 H Pulse Oximetry 97 95 95 07/02/18 08:00 07/02/18 08:04 07/02/18 11:53 Temperature 97.8 F Pulse Rate 92 H 91 H 83 Respiratory Rate 18 16 18 Blood Pressure 111/60 Pulse Oximetry 95 07/02/18 12:00 07/02/18 16:00 Temperature 97.1 F L 98.2 F Pulse Rate 99 H 98 H Respiratory Rate 18 18 Blood Pressure 139/63 141/76 H Pulse Oximetry 97 95 Intake & Output 07/01/18 07/02/18 07/02/18 18:59 06:59 18:59 Intake Total 1480 / 1480 769.2 / 769.2 1000 / 1000 Output Total 4000 / 4000 200 / 200 Balance -2520 / -2520 569.2 / 569.2 1000 / 1000 Weight 50.9 kg Intake: IV 1000 / 1000 769.2 / 769.2 1000 / 1000 NS + KCl 20 mEq Inj 1,000 ML @ 1000 / 1000 1000 / 1000 100 mls/hr IV.CONT .Q10H [facility] Rx #:[id number] MVI-12 Inj 10 ML Thiamine Inj 511.2 / 511.2 100 MG Folvite Inj 1 MG In 1/2 Normal Saline Inj 500 ML @ 127. 8 mls/hr IV.SIG ONCE ONE Rx#: [id number] Vancomycin Inj 800 MG In NS Inj 258 / 258 250 ML @ 250 mls/hr IV.SIG Q12H [facility] Rx#:[id number] Oral 480 / 480 Output: Urine 4000 / 4000 200 / 200 Other: # Voids 5 3 Results - Labs CBC & Chem 7: 07/02/18 09:47 07/02/18 09:47 Laboratory Results - last 24 hr 07/01/18 07/02/18 07/02/18 18:30 09:47 09:47 WBC 12.1 H RBC 3.56 L Hgb 12.8 D Hct 36.5 MCV 102.5 H MCH 35.9 H MCHC 35.0 RDW 13.2 Plt Count 538 H D MPV 7.9 Prelim Diff (Auto) Slide review pending Neut % (Auto) 64.7 Lymph % (Auto) 23.6 [place] % (Auto) 9.9 H Eos % (Auto) 1.1 Baso % (Auto) 0.7 Neut # (Auto) 7.9 H Lymph # (Auto) 2.9 [place] # (Auto) 1.2 H Eos # (Auto) 0.1 Baso # (Auto) 0.1 WBC Differential Manual diff final Seg Neuts % (Manual) 67 Band Neuts % (Manual) 7 H Lymphocytes % (Manual) 19 Monocytes % (Manual) 5 Metamyelocytes % (Man) 1 Promyelocytes % (Man) 1 H Abs Neuts (Manual) 9.2 H Differential Comment . Platelet Estimate High H Platelet Morphology Normal Basophilic Stippling Faint H [place] Bodies Present H Sodium 137 137 Potassium 3.4 L 3.3 L Chloride 104 102 Carbon Dioxide 24.4 24.9 Anion Gap 9 10 BUN 2 L 2 L Creatinine 0.38 L 0.32 L Estimated GFR Greater than 89 Greater than 89 Random Glucose 101 117 H Calcium 8.3 L D 8.5 Microbiology 06/30/18 15:32 Blood - Peripheral Aerobic Blood Culture - Final Staphylococcus coag negative 06/30/18 15:32 Blood - Peripheral Anaerobic Blood Culture - Final Staphylococcus coag negative 06/30/18 01:05 Blood - Peripheral Aerobic Blood Culture - Final Staphylococcus coag negative 06/30/18 01:05 Blood - Peripheral Anaerobic Blood Culture - Final Staphylococcus coag negative 07/01/18 18:30 Blood - Peripheral Aerobic Blood Culture - Preliminary No growth in 1 day 07/01/18 18:30 Blood - Peripheral Anaerobic Blood Culture - Preliminary No growth in 1 day 07/01/18 18:25 Blood - Peripheral Aerobic Blood Culture - Preliminary No growth in 1 day 07/01/18 18:25 Blood - Peripheral Anaerobic Blood Culture - Preliminary No growth in 1 day
--- NOTE | 2018-07-02 18:27 | P.PNIM ---
Subjective Interval history: Hypokalemia present today. Patient remains tachycardic. Delirium is present. She still has delirium tremens which is currently active. Physical Exam Vital signs: Vital Signs 07/01/18 20:00 07/02/18 00:00 07/02/18 04:00 Temperature 98.1 F 98.6 F 97.1 F L Pulse Rate 76 120 H 100 H Respiratory Rate 17 17 18 Blood Pressure 185/77 H 132/81 144/83 H Pulse Oximetry 97 95 95 07/02/18 08:00 07/02/18 08:04 07/02/18 11:53 Temperature 97.8 F Pulse Rate 92 H 91 H 83 Respiratory Rate 18 16 18 Blood Pressure 111/60 Pulse Oximetry 95 07/02/18 12:00 07/02/18 16:00 Temperature 97.1 F L 98.2 F Pulse Rate 99 H 98 H Respiratory Rate 18 18 Blood Pressure 139/63 141/76 H Pulse Oximetry 97 95 Intake & Output 07/01/18 07/02/18 07/02/18 18:59 06:59 18:59 Intake Total 1480 / 1480 769.2 / 769.2 1360 / 1360 Output Total 4000 / 4000 200 / 200 Balance -2520 / -2520 569.2 / 569.2 1360 / 1360 Weight 50.9 kg Intake: IV 1000 / 1000 769.2 / 769.2 1000 / 1000 NS + KCl 20 mEq Inj 1,000 ML @ 1000 / 1000 1000 / 1000 100 mls/hr IV.CONT .Q10H [facility] Rx #:[id number] MVI-12 Inj 10 ML Thiamine Inj 511.2 / 511.2 100 MG Folvite Inj 1 MG In 1/2 Normal Saline Inj 500 ML @ 127. 8 mls/hr IV.SIG ONCE ONE Rx#: [id number] Vancomycin Inj 800 MG In NS Inj 258 / 258 250 ML @ 250 mls/hr IV.SIG Q12H [facility] Rx#:[id number] Oral 480 / 480 360 / 360 Output: Urine 4000 / 4000 200 / 200 Other: # Voids 5 3 4 Narrative: GENERAL: NAD, A&Ox1, global tremors. HEAD: Normocephalic. NECK: Supple, trachea midline. No lymphadenopathy. EYES: No scleral icterus. No injection or drainage. CARDIOVASCULAR: Regular rate and rhythm without murmurs, gallops, or rubs. RESPIRATORY: Breath sounds equal bilaterally. No accessory muscle use. GASTROINTESTINAL: Abdomen soft, non-tender, nondistended. MUSCULOSKELETAL: No cyanosis, or edema. SKIN: Warm and dry. NEURO: No focal neurological deficits. Results - Labs CBC & Chem 7: 07/02/18 09:47 07/02/18 09:47 Laboratory Results - last 24 hr 07/01/18 07/02/18 07/02/18 18:30 09:47 09:47 WBC 12.1 H RBC 3.56 L Hgb 12.8 D Hct 36.5 MCV 102.5 H MCH 35.9 H MCHC 35.0 RDW 13.2 Plt Count 538 H D MPV 7.9 Prelim Diff (Auto) Slide review pending Neut % (Auto) 64.7 Lymph % (Auto) 23.6 [place] % (Auto) 9.9 H Eos % (Auto) 1.1 Baso % (Auto) 0.7 Neut # (Auto) 7.9 H Lymph # (Auto) 2.9 [place] # (Auto) 1.2 H Eos # (Auto) 0.1 Baso # (Auto) 0.1 WBC Differential Manual diff final Seg Neuts % (Manual) 67 Band Neuts % (Manual) 7 H Lymphocytes % (Manual) 19 Monocytes % (Manual) 5 Metamyelocytes % (Man) 1 Promyelocytes % (Man) 1 H Abs Neuts (Manual) 9.2 H Differential Comment . Platelet Estimate High H Platelet Morphology Normal Basophilic Stippling Faint H [place] Bodies Present H Sodium 137 137 Potassium 3.4 L 3.3 L Chloride 104 102 Carbon Dioxide 24.4 24.9 Anion Gap 9 10 BUN 2 L 2 L Creatinine 0.38 L 0.32 L Estimated GFR Greater than 89 Greater than 89 Random Glucose 101 117 H Calcium 8.3 L D 8.5 Microbiology 06/30/18 15:32 Blood - Peripheral Aerobic Blood Culture - Final Staphylococcus coag negative 06/30/18 15:32 Blood - Peripheral Anaerobic Blood Culture - Final Staphylococcus coag negative 06/30/18 01:05 Blood - Peripheral Aerobic Blood Culture - Final Staphylococcus coag negative 06/30/18 01:05 Blood - Peripheral Anaerobic Blood Culture - Final Staphylococcus coag negative 07/01/18 18:30 Blood - Peripheral Aerobic Blood Culture - Preliminary No growth in 1 day 07/01/18 18:30 Blood - Peripheral Anaerobic Blood Culture - Preliminary No growth in 1 day 07/01/18 18:25 Blood - Peripheral Aerobic Blood Culture - Preliminary No growth in 1 day 07/01/18 18:25 Blood - Peripheral Anaerobic Blood Culture - Preliminary No growth in 1 day Assessment and Plan - Assessment (1) Delirium tremens Code(s): F10.231 - Alcohol dependence with withdrawal delirium Status: Acute (2) Pneumonia Code(s): J18.9 - Pneumonia, unspecified organism Status: Acute (3) COPD (chronic obstructive pulmonary disease) Code(s): J44.9 - Chronic obstructive pulmonary disease, unspecified Status: Acute - Plan 68-year-old female admitted secondary to pneumonia and severe sepsis, now with delirium tremens Severe Sepsis Resolving Community-acquired pneumonia Bacteremia Follow cultures Continue IV Levaquin Continue Symbicort Continue duo nebs Continue O2 supplementation as needed, wbc 19.3, HR 114, lactic acid 3.0, suspect Pneumonia, right Bacteremia Echocardiogram ordered to evaluate for infectious endocarditis COPD exacerbation Continue oxygen supplements as needed Schedule duo nebs When necessary albuterol Follow for improvement in respiratory status Follow for improvement in exertional tolerance next Alcoholism delirium tremens CIWA protocol Monitor for improvement Supportive care Monitor for seizures Nicotine dependence Nicotine patch Hypokalemia Replace and monitor as needed DVT prophylaxis SCDs (2) Pneumonia Qualifiers: Pneumonia type: due to unspecified organism Laterality: right Lung location : lower lobe of lung Qualified Code(s): J18.1 - Lobar pneumonia, unspecified organism
[2018-07-02] MEDS: levoFLOXacin 750 MG Tablet PO SCH (22:07)
[2018-07-02] MEDS ORDERED: Pharmacy Ordered Lab Info OTHER ONE (23:45)
[2018-07-03] MEDS: Potassium Chlor 10 mEq Premix 10 MEQ/100 ML PIGGYBACK IV.SIG SCH ×3 (00:09→03:13)
[2018-07-03] MEDS: Vancomycin Inj 800 MG in Sodium Chlor 0.9% Inj 250 ML IV.SIG SCH ×2 (00:59→13:00)
[2018-07-03 06:21] LABS: Baso # (Auto) 0.1 th/mm3 (0.0-0.2); Baso % (Auto) 0.8 % (0.0-2.0); Eos # (Auto) 0.5 th/mm3 (0.0-0.4); Eos % (Auto) 4.7 % (0.0-4.0); Hemoglobin 13.9 gm/dL (11.6-15.3); Lymph % (Auto) 28.1 % (9.0-44.0); Mean Corpuscular HGB Conc 33.8 % (32.0-36.0); Mean Corpuscular Hemoglobin 35.8 pg (27.0-34.0); Mean Corpuscular Volume 105.8 fL (80.0-100.0); Mean Platelet Volume 8.2 fL (7.0-11.0); Mono # (Auto) 1.2 th/mm3 (0.0-0.9); Mono % (Auto) 11.2 % (0.0-8.0); Neut # (Auto) 5.9 th/mm3 (1.8-7.7); Neut % (Auto) 55.2 % (16.0-70.0); Platelet Count 543 th/mm3 (150-450); Red Blood Count 3.88 mil/mm3 (4.00-5.30); Red Cell Distribution Width 13.5 % (11.6-17.2); White Blood Count 10.7 th/mm3 (4.0-11.0)
[2018-07-03 07:04] LABS: Alanine Aminotransferase 21 U/L (10-53); Albumin 2.5 g/dL (3.4-5.0); Alkaline Phosphatase 187 U/L (45-117); Anion Gap 12 meq/L (5-15); Aspartate Aminotransferase 29 U/L (15-37); Blood Urea Nitrogen 2 mg/dL (7-18); Calcium 8.9 mg/dL (8.5-10.1); Carbon Dioxide 23.2 meq/L (21.0-32.0); Chloride 101 meq/L (98-107); Glomerular Filtration Rate Greater Than 89 mL/min (>89); Glucose,Random 76 mg/dL (74-106); Potassium 4.3 meq/L (3.5-5.1); Sodium 136 meq/L (136-145); Total Protein 7.8 g/dL (6.4-8.2)
[2018-07-03 09:58] LABS: Eosinophils 5 % (0-4); Lymphocytes 17 % (9-44); Metamyelocytes 1 % (0-1); Monocytes 8 % (0-8)
[2018-07-03 09:59] LABS: Platelet Morphology Normal (Normal)
[2018-07-03] MEDS: Haloperidol Inj 5 MG/ML Ampul IV.PUSH PRN (10:00)
--- NOTE | 2018-07-03 10:23 | P.PNID ---
Subjective Remarks: ID Coverage is a 68 y/o homeless female with a history or COPD and etoh abuse, She reportedly presented to the ED with a cough and sob. Patient states for the last few days she has had increasing sob, with a productive cough, fever and chills. She states she does have a history of TB but has not had a reoccurrence lately. She denies any chest pain, headaches or dizziness. Patient was admitted to the regular floor. CXR shows infiltrate. Sepsis workup initiated. Blood cultures are positive for GP bacteria and ID consulted for the same. At the time of my evaluation, patient is on regular floor on room air. She is currently in restraints as she pulling on her IV lines and ID badge etc and wishes to go home. She appears to be withdrawing from Alcohol or other substances if any. She is restless, at times agitated and pulling on her restraints. She is poorly kempt and has dirt on her skin and foul smell from her clothes and body. Notes reviewed Temps ok Confused, has wrist restraints 2 BC on admission with different Coag Neg Staph Repeat BC negative [place] and pneumo Ag negative WBC down to normal No rash No diarrhea Antibiotics: Levaquin Vanco IV Lines: Lines ok Past Medical History: reviewed Allergies/Adverse Reactions: Allergies penicillin G Allergy (Severe, Verified 06/29/18 21:10) SOB Sulfa (Sulfonamide Antibiotics) Allergy (Severe, Verified 06/29/18 21:10) Redness of Skin Objective Vital Signs 07/02/18 11:53 07/02/18 12:00 07/02/18 16:00 Temperature 97.1 F L 98.2 F Pulse Rate 83 99 H 98 H Respiratory Rate 18 18 18 Blood Pressure 139/63 141/76 H Pulse Oximetry 97 95 07/02/18 20:00 07/03/18 00:00 07/03/18 04:00 Temperature 98.0 F 97.9 F 97.7 F Pulse Rate 112 H 77 81 Respiratory Rate 20 18 20 Blood Pressure 135/72 91/58 L 152/100 H Pulse Oximetry 95 97 97 07/03/18 08:00 07/03/18 08:17 Temperature 97.3 F L Pulse Rate 150 H 86 Respiratory Rate 16 16 Blood Pressure 119/71 Pulse Oximetry 92 L Intake & Output 08/07/03/18 07/03/18 18:59 06:59 18:59 Intake Total 1360 / 1360 816 / 816 100 / 100 Balance 1360 / 1360 816 / 816 100 / 100 Weight 50.8 kg Intake: IV 1000 / 1000 816 / 816 100 / 100 NS + KCl 20 mEq Inj 1,000 ML @ 1000 / 1000 100 mls/hr IV.CONT .Q10H [facility] Rx #:[id number] KCl 10 mEq Premix Inj 10 meq In 300 / 300 100 ml @ 100 mls/hr IV.SIG Q1H [facility] Rx#:[id number] Vancomycin Inj 800 MG In NS Inj 516 / 516 250 ML @ 250 mls/hr IV.SIG Q12H [facility] Rx#:[id number] Oral 360 / 360 Other: # Voids 4 4 06/30/18 15:32 Blood - Peripheral Aerobic Blood Culture - Final Staphylococcus coag negative 06/30/18 15:32 Blood - Peripheral Anaerobic Blood Culture - Final Staphylococcus coag negative 06/30/18 01:05 Blood - Peripheral Aerobic Blood Culture - Final Staphylococcus coag negative 06/30/18 01:05 Blood - Peripheral Anaerobic Blood Culture - Final Staphylococcus coag negative 07/01/18 18:30 Blood - Peripheral Aerobic Blood Culture - Preliminary No growth in 1 day 07/01/18 18:30 Blood - Peripheral Anaerobic Blood Culture - Preliminary No growth in 1 day 07/01/18 18:25 Blood - Peripheral Aerobic Blood Culture - Preliminary No growth in 1 day 07/01/18 18:25 Blood - Peripheral Anaerobic Blood Culture - Preliminary No growth in 1 day 06/30/18 03:11 Urine - Clean Catch Urine Streptococcus pneumoniae Antigen ( M - Final Presumptive negative for streptococcus pneumoniae antigen, suggesting no current or recent infection. Infection due to Streptococcus pneumoniae cannot be ruled out since the antigen present in the sample may be below the detection limit of the test. 06/30/18 03:11 Urine - Clean Catch Urine Legionella Antigen - Final Presumptive negative for Legionella pneumophila serogroup 1 antigen in urine, suggesting no recent or recurrent infection. Infection due to Legionella cannot be ruled out since other serogroups and species may cause disease, antigen may not be present in urine in early infection, and the level of antigen present in the urine may be below the detection limit of the test. Lab - Hematology Results 07/02/18 07/03/18 09:47 05:57 WBC 12.1 H 10.7 RBC 3.56 L 3.88 L Hgb 12.8 D 13.9 Hct 36.5 41.0 MCV 102.5 H 105.8 H MCH 35.9 H 35.8 H MCHC 35.0 33.8 RDW 13.2 13.5 Plt Count 538 H D 543 H MPV 7.9 8.2 Prelim Diff (Auto) Slide review pending Slide review pending Neut % (Auto) 64.7 55.2 Lymph % (Auto) 23.6 28.1 [place] % (Auto) 9.9 H 11.2 H Eos % (Auto) 1.1 4.7 H Baso % (Auto) 0.7 0.8 Neut # (Auto) 7.9 H 5.9 Lymph # (Auto) 2.9 3.0 [place] # (Auto) 1.2 H 1.2 H Eos # (Auto) 0.1 0.5 H Baso # (Auto) 0.1 0.1 WBC Differential Manual diff final Manual diff final Seg Neuts % (Manual) 67 57 Band Neuts % (Manual) 7 H 11 H Lymphocytes % (Manual) 19 17 Monocytes % (Manual) 5 8 Eosinophils % (Manual) 5 H Basophils % (Manual) 1 Metamyelocytes % (Man) 1 1 Promyelocytes % (Man) 1 H Abs Neuts (Manual) 9.2 H 7.4 Differential Comment . . Platelet Estimate High H High H Platelet Morphology Normal Normal Basophilic Stippling Faint H [place] Bodies Present H Lab - Chemistry Results 07/01/18 07/02/18 07/03/18 18:30 09:47 05:57 Sodium 137 137 136 Potassium 3.4 L 3.3 L 4.3 D Chloride 104 102 101 Carbon Dioxide 24.4 24.9 23.2 Anion Gap 9 10 12 BUN 2 L 2 L 2 L Creatinine 0.38 L 0.32 L 0.34 L Estimated GFR Greater than 89 Greater than 89 Greater than 89 Random Glucose 101 117 H 76 Calcium 8.3 L D 8.5 8.9 Total Bilirubin 0.6 AST 29 ALT 21 Alkaline Phosphatase 187 H Total Protein 7.8 D Albumin 2.5 L Imaging: ITS Impressions Chest X-Ray 06/29/18 21:20 CONCLUSION: Right lower lung atelectasis or consolidation. Chronic calcification seen throughout the mid and upper lungs being more prominent on the left. Physical Exam: GENERAL: Poorly nourished Poorly kempt, not in acute distress. Awake and sitting on her bed. Confused. Has wrist restraints SKIN: Cool and dry, no generalized rash HEAD: Atraumatic. Normocephalic. No temporal or scalp tenderness. EYES: Pupils equal round and reactive. Scleral icterus. No injection or drainage. No petechia ENT: Moist mucosa, No nasal discharge NECK: Trachea midline. Supple, nontender, no meningeal signs. CARDIOVASCULAR: HS audible. RESPIRATORY: Clear to auscultation bilaterally. GASTROINTESTINAL: Abdomen soft nontender. MUSCULOSKELETAL: Extremities without clubbing, cyanosis. NEUROLOGICAL: Non focal. Confused. Psych agitated and restless at times. IV line sites ok. Assessment and Plan - Plan Sepsis present on admission Pneumonia ? aspiration vs CAP. H/o TB in past reportedly treated. Different Coag Neg Staph in , C/W contamination Alcoholism, appears to be withdrawing. COPD history Acute metabolic encephalopathy: alcohol, sepsis, metabolic. Penicillin allergy Recs: Continue Levaquin (atypical as well as CAP coverage) Stop Vanco IV Repeat CXR to follow up infiltrates Follow cultures Monitor progress Dr Cervantes available this weekend if needed.
--- NOTE | 2018-07-03 12:04 | P.PNPAL ---
Reason for Visit Reason for visit: a. To assist with evaluation and management of symptoms including: cough, dyspnea, confusion b. To assist medical decision maker(s) with: better understanding of current medical conditions; weighing benefits/burdens of medical treatment options; making medical treatment decisions. Subjective Subjective/Interval History: Patient is a 68 year old homeless, female who presented to [place] ED on 2017 for evaluation of a productive cough with yellow phlegm 3 days. Patient has a history of COPD and tuberculosis. She has had multiple lung infections but denied recurrence of her TB. Appears to have a chronic left eye conjunctivitis. After ED workup, the patient was admitted with pneumonia, leukocytosis, hypokalemia and EtOH intoxication. F/U visit necessary for symptom management (cough, dyspnea, confusion) and clarification of medical treatment goals. Patient remains confused. Speech is nonsensical at times. Patient is having visual hallucinations, pointing to the ceiling saying "the floor fell." Patient denies dyspnea and cough when asked. Respirations are unlabored on room air; oxygen saturations stable in the mid to high 90s. Clinical data: = WBC decreased from 19.3 to 10.7; H/H 13.9/41.0; platelets 543; neutrophils 55.2% = Sodium 136; potassium increased from 3.2 to 4.3; chloride 102; carbon dioxide 23.2; glucose 76, calcium 8.9 = BUN 2, creatinine 0.34; GFR >89 = Total bilirubin: 0.6; AST 29; ALT 21; alkaline phosphatase 187 = Total protein 7.8; albumin 2.5 Infectious disease was consulted secondary to gram-positive bacteremia. Afebrile. Repeat cultures negative. Legionella and pneumonia Ag negative. Leukocytosis has resolved. Patient remains on Levaquin. Echocardiogram to rule out endocarditis-results pending. Will repeat chest x-ray to follow-up on infiltrates, follow cultures and monitor progress. Patient continues to lack insight toward her medical conditions; it is unclear if the patient will regain capacity. Case management consulted to run [employer] report in an attempt to locate possible family members. Objective Vital Signs: Vital Signs 07/02/18 11:53 07/02/18 12:00 07/02/18 16:00 Temperature 97.1 F L 98.2 F Pulse Rate 83 99 H 98 H Respiratory Rate 18 18 Blood Pressure 139/63 141/76 H Pulse Oximetry 97 95 07/02/18 20:00 07/03/18 00:00 07/03/18 04:00 Temperature 98.0 F 97.9 F 97.7 F Pulse Rate 112 H 77 81 Respiratory Rate 20 18 20 Blood Pressure 135/72 91/58 L 152/100 H Pulse Oximetry 95 97 97 07/03/18 08:00 07/03/18 08:17 Temperature 97.3 F L Pulse Rate 150 H 86 Respiratory Rate 16 16 Blood Pressure 119/71 Pulse Oximetry 92 L Intake & Output 07/02/18 07/03/18 07/03/18 18:59 06:59 18:59 Intake Total 1360 / 1360 816 / 816 100 / 100 Balance 1360 / 1360 816 / 816 100 / 100 Weight 50.8 kg Intake: IV 1000 / 1000 816 / 816 100 / 100 NS + KCl 20 mEq Inj 1,000 ML @ 1000 / 1000 100 mls/hr IV.CONT .Q10H [facility] Rx #:[id number] KCl 10 mEq Premix Inj 10 meq In 300 / 300 100 ml @ 100 mls/hr IV.SIG Q1H [facility] Rx#:[id number] Vancomycin Inj 800 MG In NS Inj 516 / 516 250 ML @ 250 mls/hr IV.SIG Q12H [facility] Rx#:[id number] Oral 360 / 360 Other: # Voids 4 4 Physical Exam: CONSTITUTIONAL/GENERAL: This is an disheveled, confused female in no acute distress TUBES/LINES/DRAINS: PIV SKIN: No rashes or lesions. Ecchymoses on upper extremities. No wounds seen anteriorly. Skin temperature appropriate. Not diaphoretic. HEAD: Atraumatic. Normocephalic. EYES: Pupils equal and round and reactive. Scleral icterus. No injection or drainage. Fundi not examined. ENT: Hearing grossly normal. Nose without bleeding or purulent drainage. Throat without visible erythema, exudates, masses, or lesions. NECK: Trachea midline. Supple, nontender. No palpable thyroid enlargement or nodularity. CARDIOVASCULAR: Regular rate and rhythm without murmurs, gallops, or rubs. No JVD. Peripheral pulses symmetric. RESPIRATORY/CHEST: Symmetric, unlabored respirations. Breath sounds equal bilaterally. No wheezes, rales, or rhonchi. No use of accessory muscles GASTROINTESTINAL: Abdomen soft, non-tender, nondistended. Bowel sounds present. GENITOURINARY: Without palpable bladder distension. Ruiz catheter in place. MUSCULOSKELETAL: Extremities without clubbing, cyanosis, or edema. Muscle wasting noted in bilateral lower extremities LYMPHATICS: No palpable cervical or supraclavicular adenopathy. NEUROLOGICAL: Oriented to self only. Confused. Speech is at times nonsensical able to answer some simple questions; follow simple commands. Moves extremities x 4 PSYCHIATRIC: No obvious anxiety/depression. No apparent hallucinations or other psychotic thought process. Diagnostic Tests Laboratory: Laboratory Results - last 72 hr 06/30/18 07/01/18 07/01/18 15:32 07:51 13:20 WBC 10.8 RBC 2.41 L Hgb 8.6 L D Hct 25.4 L MCV 105.4 H MCH 35.9 H MCHC 34.0 RDW 13.5 Plt Count 337 D MPV 8.2 Prelim Diff (Auto) Neut % (Auto) 67.1 Lymph % (Auto) 17.1 [place] % (Auto) 13.4 H Eos % (Auto) 1.8 Baso % (Auto) 0.6 Neut # (Auto) 7.3 Lymph # (Auto) 1.9 [place] # (Auto) 1.4 H Eos # (Auto) 0.2 Baso # (Auto) 0.1 WBC Differential . Seg Neuts % (Manual) Band Neuts % (Manual) Lymphocytes % (Manual) Monocytes % (Manual) Eosinophils % (Manual) Basophils % (Manual) Metamyelocytes % (Man) Promyelocytes % (Man) Abs Neuts (Manual) Differential Comment Auto diff final Platelet Estimate Platelet Morphology Basophilic Stippling [place] Bodies Sodium Potassium Chloride Carbon Dioxide Anion Gap BUN Creatinine Estimated GFR Random Glucose Calcium Total Bilirubin AST ALT Alkaline Phosphatase Total Protein Albumin Procalcitonin 37.78 H Urine Opiates Screen Neg Ur Barbiturates Screen Neg Ur Amphetamines Screen Neg U Benzodiazepines Scrn Neg Urine Cocaine Screen Neg U Cannabinoids Screen Neg 07/01/18 07/02/18 07/02/18 18:30 09:47 09:47 WBC 12.1 H RBC 3.56 L Hgb 12.8 D Hct 36.5 MCV 102.5 H MCH 35.9 H MCHC 35.0 RDW 13.2 Plt Count 538 H D MPV 7.9 Prelim Diff (Auto) Slide review pending Neut % (Auto) 64.7 Lymph % (Auto) 23.6 [place] % (Auto) 9.9 H Eos % (Auto) 1.1 Baso % (Auto) 0.7 Neut # (Auto) 7.9 H Lymph # (Auto) 2.9 [place] # (Auto) 1.2 H Eos # (Auto) 0.1 Baso # (Auto) 0.1 WBC Differential Manual diff final Seg Neuts % (Manual) 67 Band Neuts % (Manual) 7 H Lymphocytes % (Manual) 19 Monocytes % (Manual) 5 Eosinophils % (Manual) Basophils % (Manual) Metamyelocytes % (Man) 1 Promyelocytes % (Man) 1 H Abs Neuts (Manual) 9.2 H Differential Comment . Platelet Estimate High H Platelet Morphology Normal Basophilic Stippling Faint H [place] Bodies Present H Sodium 137 137 Potassium 3.4 L 3.3 L Chloride 104 102 Carbon Dioxide 24.4 24.9 Anion Gap 9 10 BUN 2 L 2 L Creatinine 0.38 L 0.32 L Estimated GFR Greater than 89 Greater than 89 Random Glucose 101 117 H Calcium 8.3 L D 8.5 Total Bilirubin AST ALT Alkaline Phosphatase Total Protein Albumin Procalcitonin Urine Opiates Screen Ur Barbiturates Screen Ur Amphetamines Screen U Benzodiazepines Scrn Urine Cocaine Screen U Cannabinoids Screen 07/03/18 07/03/18 05:57 05:57 WBC 10.7 RBC 3.88 L Hgb 13.9 Hct 41.0 MCV 105.8 H MCH 35.8 H MCHC 33.8 RDW 13.5 Plt Count 543 H MPV 8.2 Prelim Diff (Auto) Slide review pending Neut % (Auto) 55.2 Lymph % (Auto) 28.1 [place] % (Auto) 11.2 H Eos % (Auto) 4.7 H Baso % (Auto) 0.8 Neut # (Auto) 5.9 Lymph # (Auto) 3.0 [place] # (Auto) 1.2 H Eos # (Auto) 0.5 H Baso # (Auto) 0.1 WBC Differential Manual diff final Seg Neuts % (Manual) 57 Band Neuts % (Manual) 11 H Lymphocytes % (Manual) 17 Monocytes % (Manual) 8 Eosinophils % (Manual) 5 H Basophils % (Manual) 1 Metamyelocytes % (Man) 1 Promyelocytes % (Man) Abs Neuts (Manual) 7.4 Differential Comment . Platelet Estimate High H Platelet Morphology Normal Basophilic Stippling [place] Bodies Sodium 136 Potassium 4.3 D Chloride 101 Carbon Dioxide 23.2 Anion Gap 12 BUN 2 L Creatinine 0.34 L Estimated GFR Greater than 89 Random Glucose 76 Calcium 8.9 Total Bilirubin 0.6 AST 29 ALT 21 Alkaline Phosphatase 187 H Total Protein 7.8 D Albumin 2.5 L Procalcitonin Urine Opiates Screen Ur Barbiturates Screen Ur Amphetamines Screen U Benzodiazepines Scrn Urine Cocaine Screen U Cannabinoids Screen Result Diagrams: 07/03/18 05:57 07/03/18 05:57 Microbiology: Microbiology 07/01/18 18:30 Aerobic Blood Culture - Preliminary Blood - Peripheral No growth in 2 days Anaerobic Blood Culture - Preliminary No growth in 2 days 07/01/18 18:25 Aerobic Blood Culture - Preliminary Blood - Peripheral No growth in 2 days Anaerobic Blood Culture - Preliminary No growth in 2 days 06/30/18 15:32 Aerobic Blood Culture - Final Blood - Peripheral Staphylococcus coag negative Anaerobic Blood Culture - Final Staphylococcus coag negative 06/30/18 01:05 Aerobic Blood Culture - Final Blood - Peripheral Staphylococcus coag negative Anaerobic Blood Culture - Final Staphylococcus coag negative 06/30/18 03:11 Streptococcus pneumoniae Antigen (M - Final Urine - Clean Catch Urine Presumptive negative for streptococcus pneumoniae antigen, suggesting no current or recent infection. Infection due to Streptococcus pneumoniae cannot be ruled out since the antigen present in the sample may be below the detection limit of the test. 06/30/18 03:11 Legionella Antigen - Final Urine - Clean Catch Urine Presumptive negative for Legionella pneumophila serogroup 1 antigen in urine, suggesting no recent or recurrent infection. Infection due to Legionella cannot be ruled out since other serogroups and species may cause disease, antigen may not be present in urine in early infection, and the level of antigen present in the urine may be below the detection limit of the test. Imaging: Chest X-Ray 06/29/18 21:20 CONCLUSION: Right lower lung atelectasis or consolidation. Chronic calcification seen throughout the mid and upper lungs being more prominent on the left. Assessment and Plan - Disease Oriented Problem List (1) COPD (chronic obstructive pulmonary disease) (2) Acute metabolic encephalopathy (3) Sepsis (4) Coag negative Staphylococcus bacteremia (5) Conjunctivitis (6) Leukocytosis (7) Alcohol abuse with intoxication (8) History of tuberculosis - Symptom Scale (1) Cough Comment: Patient reports cough has improved (2) Confusion Comment: Acute metabolic encephalopathy. Possible contributing factors include EtOH abuse/withdrawal, sepsis, metabolic (3) SOB (shortness of breath) Comment: = Patient denies SOB on exam. = History of COPD and previous tuberculosis without recurrence = Chest x-ray showing infiltrates Pertinent Non-Medical Issues: Psychosocial: Patient is originally from [place], [place]. Patient left [place] when she was 19 years old. She states she has no family left and has no friends/contacts that she would want notified of her hospitalization Spiritual: Patient denies buddhist affiliation Legal: Patient currently lacks capacity for medical decision-making. If her mental status does not improve in the upcoming days, we will need to run an accurate in an attempt to find patient's family. Ethical issues impacting care: No known ethical issues impacting care. Important Contacts: No known family members, friends or contacts Prognosis: Patient is a encephalopathic, disheveled, homeless 68-year-old female with a history of COPD, previous TB and EtOH abuse who currently hospitalized for medical management of sepsis, possible EtOH withdrawal. Patient is acutely encephalopathic and lacks insight related to her medical conditions. It is unclear if patient will regain insight; she is at risk for compensation and functional decline. Code Status: Full Code Plan: * FULL CODE * Decision making: Patient continues to lack insight toward her medical conditions; it is unclear if the patient will regain capacity. Patient previously stated she has no living family members or friends who could act in the role of health care decision maker. Case management consulted for [employer] report in an attempt to locate possible family members. * Goals remain aggressive by default * Symptom management: = Dyspnea/cough: Patient presented with complaints of cough and dyspnea. She has a history of TB in the past (reportedly treated) and COPD. Chest x-ray showing right lower lung atelectasis or consolidation. Will repeat chest x-ray to follow-up on infiltrates. PRN nebulizer treatments available. Infectious disease following. = Confusion: Acute encephalopathy likely multifactorial. Patient is currently in restraints. Staff reports she has been trying to pull out her IV and kicking at them. Contributing factors likely include metabolic encephalopathy, sepsis, EtOH abuse/withdrawal. CIWA protocol ordered. PRN Lorazepam and Haldol available * Palliative care will follow this patient throughout her hospitalization to establish trust, assist with symptom management, assist with locating appropriate healthcare proxy decision-maker and clarification of medical treatment goals Attestation Attestation: To help prompt me to consider important information that might be impacting today's encounter and assessment, information from prior notes written by myself or my colleagues may have been "brought forward" into today's note. My signature on this note, however, is an attestation that I personally performed the exam, history, and/or decision-making noted today, and, unless otherwise indicated, the interactions with patient, family, and staff as well as the review of records all occurred today. I also attest that the listed assessment and stated plan reflect my best clinical judgment today based on the combination of historical information, prior notes, and today's exam/ interactions. When time spent is documented, it refers only to time spent today by the signer, or if indicated, combined time spent today by collaborating physician/nurse practitioner.
--- NOTE | 2018-07-03 13:43 | ECHRPT ---
Indication: sepsis CONCLUSIONS The left ventricular systolic function is hyperdynamic with an estimated ejection fraction in the ra nge of 65- 70%. Doppler parameters are consistent with impaired left ventricular relaxtion (grade 1 diastolic dysfun ction). There is trace tricuspid valve regurgitation. Trivial pulmonary valve regurgitation. BP: / HR: Rhythm: Sinus MEASUREMENTS (Male / Female) Normal Values Technical Quality:Poor 2D ECHO LV Diastolic Diameter PLAX 3.5 cm 4.2 - 5.9 / 3.9 - 5.3 cm LV Systolic Diameter PLAX 2.4 cm IVS Diastolic Thickness 1.0 cm 0.6 - 1.0 / 0.6 - 0.9 cm LVPW Diastolic Thickness 1.0 cm 0.6 - 1.0 / 0.6 - 0.9 cm LV Relative Wall Thickness 0.6 RV Internal Dim ED PLAX 1.8 cm LVOT Diameter 1.8 cm LA Systolic Diameter LX 2.4 cm 3.0 - 4.0 / 2.7 - 3.8 cm LV Ejection Fraction MOD 4C 74.6 % LV Ejection Fraction 4C AL 75.3 % M-MODE Aortic Root Diameter MM 2.7 cm LA Systolic Diameter MM 2.7 cm LA Ao Ratio MM 1.0 AV Cusp Separation MM 1.5 cm DOPPLER AV Peak Velocity 109.0 cm/s AV Peak Gradient 4.8 mmHg LVOT Peak Velocity 85.9 cm/s LVOT Peak Gradient 3.0 mmHg AV Area Cont Eq pk 2.0 cm MV Area PHT 3.9 cm Mitral E Point Velocity 66.1 cm/s Mitral A Point Velocity 76.5 cm/s Mitral E to A Ratio 0.9 LV E' Lateral Velocity 6.8 cm/s Mitral E to LV E' Lateral Ratio 9.7 LV E' Septal Velocity 6.8 cm/s Mitral E to LV E' Septal Ratio 9.7 TR Peak Velocity 140.0 cm/s TR Peak Gradient 7.8 mmHg PV Peak Velocity 73.3 cm/s PV Peak Gradient 2.1 mmHg FINDINGS LEFT VENTRICLE The left ventricular systolic function is hyperdynamic with an estimated ejection fraction in the ra nge of 65- 70%. Normal left ventricular size. Wall thickness is normal. No regional wall motion abnormalities are present. Doppler parameters are consistent with impaired left ventricular relaxtion (grade 1 diastolic dysfun ction). RIGHT VENTRICLE Normal right ventricular size and systolic function. LEFT ATRIUM The left atrial size is normal. RIGHT ATRIUM The right atrial size is normal. ATRIAL SEPTUM Normal atrial septal thickness without atrial level shunting by limited color doppler interrogation. AORTA The aortic root and proximal ascending aorta are normal in size on limited imaging. MITRAL VALVE Structurally normal mitral valve. No mitral valve stenosis or regurgitation. AORTIC VALVE Trileaflet aortic valve. No aortic valve stenosis or regurgitation. TRICUSPID VALVE Structurally normal tricuspid valve. There is trace tricuspid valve regurgitation. Normal estimated pulmonary pressures. PULMONARY VALVE The pulmonary valve is not well visualized. Trivial pulmonary valve regurgitation. VESSELS The inferior vena cava is normal in size. PERICARDIUM No pericardial effusion. Laith Edmondson DO (Electronically Signed) Final Date:03 July 2018 13:42
--- NOTE | 2018-07-03 17:07 | P.PNIM ---
Subjective Interval history: Patient is less aggressive now. Delirium tremens appears controlled. She is resting comfortably. She is not oriented. Physical Exam Vital signs: Vital Signs 07/02/18 20:00 07/03/18 00:00 07/03/18 04:00 Temperature 98.0 F 97.9 F 97.7 F Pulse Rate 112 H 77 81 Respiratory Rate 20 18 20 Blood Pressure 135/72 91/58 L 152/100 H Pulse Oximetry 95 97 97 07/03/18 08:00 07/03/18 08:17 07/03/18 12:00 Temperature 97.3 F L 98 F Pulse Rate 150 H 86 82 Respiratory Rate 16 16 16 Blood Pressure 119/71 131/67 Pulse Oximetry 92 L 97 07/03/18 16:00 Temperature 96.7 F L Pulse Rate 75 Respiratory Rate 18 Blood Pressure 111/59 L Pulse Oximetry 98 Intake & Output 07/02/18 07/03/18 07/03/18 18:59 06:59 18:59 Intake Total 1360 / 1360 816 / 816 358 / 358 Balance 1360 / 1360 816 / 816 358 / 358 Weight 50.8 kg Intake: IV 1000 / 1000 816 / 816 358 / 358 NS + KCl 20 mEq Inj 1,000 ML @ 1000 / 1000 100 mls/hr IV.CONT .Q10H [facility] Rx #:[id number] KCl 10 mEq Premix Inj 10 meq In 300 / 300 100 ml @ 100 mls/hr IV.SIG Q1H [facility] Rx#:[id number] Vancomycin Inj 800 MG In NS Inj 516 / 516 258 / 258 250 ML @ 250 mls/hr IV.SIG Q12H [facility] Rx#:[id number] Oral 360 / 360 Other: # Voids 4 4 Narrative: GENERAL: NAD, A&Ox1 HEAD: Normocephalic. NECK: Supple, trachea midline. No lymphadenopathy. EYES: No scleral icterus. No injection or drainage. CARDIOVASCULAR: Regular rate and rhythm without murmurs, gallops, or rubs. RESPIRATORY: Breath sounds equal bilaterally. No accessory muscle use. GASTROINTESTINAL: Abdomen soft, non-tender, nondistended. MUSCULOSKELETAL: No cyanosis, or edema. SKIN: Warm and dry. NEURO: No focal neurological deficits. Results - Labs CBC & Chem 7: 07/03/18 05:57 07/03/18 05:57 Laboratory Results - last 24 hr 07/03/18 07/03/18 07/03/18 05:57 05:57 13:05 WBC 10.7 RBC 3.88 L Hgb 13.9 Hct 41.0 MCV 105.8 H MCH 35.8 H MCHC 33.8 RDW 13.5 Plt Count 543 H MPV 8.2 Prelim Diff (Auto) Slide review pending Neut % (Auto) 55.2 Lymph % (Auto) 28.1 [place] % (Auto) 11.2 H Eos % (Auto) 4.7 H Baso % (Auto) 0.8 Neut # (Auto) 5.9 Lymph # (Auto) 3.0 [place] # (Auto) 1.2 H Eos # (Auto) 0.5 H Baso # (Auto) 0.1 WBC Differential Manual diff final Seg Neuts % (Manual) 57 Band Neuts % (Manual) 11 H Lymphocytes % (Manual) 17 Monocytes % (Manual) 8 Eosinophils % (Manual) 5 H Basophils % (Manual) 1 Metamyelocytes % (Man) 1 Abs Neuts (Manual) 7.4 Differential Comment . Platelet Estimate High H Platelet Morphology Normal Sodium 136 Potassium 4.3 D Chloride 101 Carbon Dioxide 23.2 Anion Gap 12 BUN 2 L Creatinine 0.34 L Estimated GFR Greater than 89 Random Glucose 76 Calcium 8.9 Total Bilirubin 0.6 AST 29 ALT 21 Alkaline Phosphatase 187 H Total Protein 7.8 D Albumin 2.5 L Vancomycin Trough 11.3 H Microbiology 06/30/18 15:32 Blood - Peripheral Aerobic Blood Culture - Final Staphylococcus coag negative 06/30/18 15:32 Blood - Peripheral Anaerobic Blood Culture - Final Staphylococcus coag negative 06/30/18 01:05 Blood - Peripheral Aerobic Blood Culture - Final Staphylococcus coag negative 06/30/18 01:05 Blood - Peripheral Anaerobic Blood Culture - Final Staphylococcus coag negative 07/01/18 18:30 Blood - Peripheral Aerobic Blood Culture - Preliminary No growth in 2 days 07/01/18 18:30 Blood - Peripheral Anaerobic Blood Culture - Preliminary No growth in 2 days 07/01/18 18:25 Blood - Peripheral Aerobic Blood Culture - Preliminary No growth in 2 days 07/01/18 18:25 Blood - Peripheral Anaerobic Blood Culture - Preliminary No growth in 2 days Assessment and Plan - Assessment (1) Delirium tremens Code(s): F10.231 - Alcohol dependence with withdrawal delirium Status: Acute (2) Pneumonia Code(s): J18.9 - Pneumonia, unspecified organism Status: Acute (3) COPD (chronic obstructive pulmonary disease) Code(s): J44.9 - Chronic obstructive pulmonary disease, unspecified Status: Acute - Plan 68-year-old female admitted secondary to pneumonia and severe sepsis, now with delirium tremens Improved control of delirium tremens. Continue to treat delirium tremens. Continue coverage of infections. Severe Sepsis Resolving Community-acquired pneumonia Bacteremia Follow cultures Continue IV Levaquin Continue Symbicort Continue duo nebs Continue O2 supplementation as needed, wbc 19.3, HR 114, lactic acid 3.0, suspect Pneumonia, right Bacteremia Echocardiogram ordered to evaluate for infectious endocarditis COPD exacerbation Continue oxygen supplements as needed Schedule duo nebs When necessary albuterol Follow for improvement in respiratory status Follow for improvement in exertional tolerance next Alcoholism delirium tremens CIWA protocol Monitor for improvement Supportive care Monitor for seizures Nicotine dependence Nicotine patch Hypokalemia Replace and monitor as needed DVT prophylaxis SCDs (2) Pneumonia Qualifiers: Pneumonia type: due to unspecified organism Laterality: right Lung location : lower lobe of lung Qualified Code(s): J18.1 - Lobar pneumonia, unspecified organism
[2018-07-03] MEDS: levoFLOXacin 750 MG Tablet PO SCH (23:15)
[2018-07-04] MEDS: LORazepam 1 MG Tablet PO PRN (09:19)
--- NOTE | 2018-07-04 15:47 | P.PNIM ---
Subjective Interval history: 68-year-old female who complains of pain. She has an altered mental state due to delirium tremens. She is on CIWA protocol and does not appear in any distress aside from sitting up in bed planing of pain. Physical Exam Vital signs: Vital Signs 07/03/18 16:00 07/03/18 18:00 07/03/18 20:00 Temperature 96.7 F L 98 F 98.3 F Pulse Rate 75 88 83 Respiratory Rate 18 19 18 Blood Pressure 111/59 L 135/59 L 102/58 L Pulse Oximetry 98 96 97 07/04/18 00:00 07/04/18 04:55 07/04/18 08:00 Temperature 97.9 F 97.9 F 96.1 F L Pulse Rate 85 89 82 Respiratory Rate 18 18 18 Blood Pressure 98/54 L 117/55 L 105/57 L Pulse Oximetry 96 96 95 07/04/18 12:00 Temperature 97.6 F Pulse Rate 93 H Respiratory Rate 19 Blood Pressure 142/75 H Pulse Oximetry 98 Intake & Output 07/03/18 07/04/18 07/04/18 18:59 06:59 18:59 Intake Total 358 / 358 1480 / 1480 1000 / 1000 Balance 358 / 358 1480 / 1480 1000 / 1000 Weight 50.9 kg Intake: IV 358 / 358 1000 / 1000 1000 / 1000 NS + KCl 20 mEq Inj 1,000 ML @ 1000 / 1000 1000 / 1000 100 mls/hr IV.CONT .Q10H [facility] Rx #:[id number] Vancomycin Inj 800 MG In NS Inj 258 / 258 250 ML @ 250 mls/hr IV.SIG Q12H [facility] Rx#:[id number] Oral 480 / 480 Other: # Urine Diapers 1 # Bowel Movements 0 Narrative: GENERAL: NAD, A&Ox1 HEAD: Normocephalic. NECK: Supple, trachea midline. No lymphadenopathy. EYES: No scleral icterus. No injection or drainage. CARDIOVASCULAR: Regular rate and rhythm without murmurs, gallops, or rubs. RESPIRATORY: Breath sounds equal bilaterally. No accessory muscle use. GASTROINTESTINAL: Abdomen soft, non-tender, nondistended. MUSCULOSKELETAL: No cyanosis, or edema. SKIN: Warm and dry. NEURO: No focal neurological deficits. Results - Labs CBC & Chem 7: 07/03/18 05:57 07/03/18 05:57 Microbiology 07/01/18 18:30 Blood - Peripheral Aerobic Blood Culture - Preliminary No growth in 3 days 07/01/18 18:30 Blood - Peripheral Anaerobic Blood Culture - Preliminary No growth in 3 days 07/01/18 18:25 Blood - Peripheral Aerobic Blood Culture - Preliminary No growth in 3 days 07/01/18 18:25 Blood - Peripheral Anaerobic Blood Culture - Preliminary No growth in 3 days 06/30/18 15:32 Blood - Peripheral Aerobic Blood Culture - Final Staphylococcus coag negative 06/30/18 15:32 Blood - Peripheral Anaerobic Blood Culture - Final Staphylococcus coag negative 06/30/18 01:05 Blood - Peripheral Aerobic Blood Culture - Final Staphylococcus coag negative 06/30/18 01:05 Blood - Peripheral Anaerobic Blood Culture - Final Staphylococcus coag negative Assessment and Plan - Assessment (1) Delirium tremens Code(s): F10.231 - Alcohol dependence with withdrawal delirium Status: Acute (2) Pneumonia Code(s): J18.9 - Pneumonia, unspecified organism Status: Acute (3) COPD (chronic obstructive pulmonary disease) Code(s): J44.9 - Chronic obstructive pulmonary disease, unspecified Status: Acute - Plan 68-year-old female admitted secondary to pneumonia and severe sepsis, now with delirium tremens Severe Sepsis, bacteremia Following cultures, resolving Echocardiogram pending for evaluation of infectious endocarditis Community-acquired pneumonia, COPD Following cultures Continue IV Levaquin, Symbicort, duo nebs, oxygen Chest x-ray suspicious for pneumonia of right lobe Alcoholism , delirium tremens Continue CIWA protocol Seizure precautions Metabolic encephalopathy Likely related to delirium tremens, still rather confused Continue with soft restraints Follow for improvement Nicotine dependence Nicotine patch Hypokalemia Replace and monitor as needed DVT prophylaxis SCDs (2) Pneumonia Qualifiers: Pneumonia type: due to unspecified organism Laterality: right Lung location : lower lobe of lung Qualified Code(s): J18.1 - Lobar pneumonia, unspecified organism
[2018-07-04] MEDS: levoFLOXacin 750 MG Tablet PO SCH (23:30)
[2018-07-05] MEDS: LORazepam 1 MG Tablet PO PRN (09:23)
--- NOTE | 2018-07-05 14:33 | P.PNIM ---
Subjective Interval history: Patient is more alert and oriented today. Her pain is adequately controlled after addition of pain medicine. She is alert and oriented 3 and requesting to have her restraints removed. Physical Exam Vital signs: Vital Signs 07/04/18 16:00 07/04/18 20:00 07/05/18 00:00 Temperature 97.2 F L 97.4 F L 97.8 F Pulse Rate 63 85 88 Respiratory Rate 19 20 18 Blood Pressure 108/78 122/72 140/70 Pulse Oximetry 97 94 L 94 L 07/05/18 04:00 07/05/18 08:00 07/05/18 12:00 Temperature 97.5 F L 98.1 F 97.6 F Pulse Rate 78 83 79 Respiratory Rate 18 19 20 Blood Pressure 119/84 122/64 131/69 Pulse Oximetry 94 L 97 Intake & Output 07/04/18 07/05/18 07/05/18 18:59 06:59 18:59 Intake Total 1000 / 1000 1240 / 1240 800 / 800 Balance 1000 / 1000 1240 / 1240 800 / 800 Weight 50.5 kg Intake: IV 1000 / 1000 1000 / 1000 800 / 800 NS + KCl 20 mEq Inj 1,000 ML @ 1000 / 1000 1000 / 1000 800 / 800 100 mls/hr IV.CONT .Q10H [facility] Rx #:[id number] Oral 240 / 240 Other: # Incontinent Voids 3 Narrative: GENERAL: NAD, A&Ox3 HEAD: Normocephalic. NECK: Supple, trachea midline. No lymphadenopathy. EYES: No scleral icterus. No injection or drainage. CARDIOVASCULAR: Regular rate and rhythm without murmurs, gallops, or rubs. RESPIRATORY: Breath sounds equal bilaterally. No accessory muscle use. GASTROINTESTINAL: Abdomen soft, non-tender, nondistended. MUSCULOSKELETAL: No cyanosis, or edema. SKIN: Warm and dry. NEURO: No focal neurological deficits. Results - Labs CBC & Chem 7: 07/03/18 05:57 07/03/18 05:57 Microbiology 07/01/18 18:30 Blood - Peripheral Aerobic Blood Culture - Preliminary No growth in 4 days 07/01/18 18:30 Blood - Peripheral Anaerobic Blood Culture - Preliminary No growth in 4 days 07/01/18 18:25 Blood - Peripheral Aerobic Blood Culture - Preliminary No growth in 4 days 07/01/18 18:25 Blood - Peripheral Anaerobic Blood Culture - Preliminary No growth in 4 days Assessment and Plan - Assessment (1) Delirium tremens Code(s): F10.231 - Alcohol dependence with withdrawal delirium Status: Acute (2) Pneumonia Code(s): J18.9 - Pneumonia, unspecified organism Status: Acute (3) COPD (chronic obstructive pulmonary disease) Code(s): J44.9 - Chronic obstructive pulmonary disease, unspecified Status: Acute - Plan 68-year-old female admitted secondary to pneumonia and severe sepsis, now with delirium tremens Severe Sepsis, bacteremia Following cultures, resolving Echocardiogram did not demonstrate any large visitations, ejection fraction 65- 70% Community-acquired pneumonia, COPD Following cultures Continue IV Levaquin, Symbicort, duo nebs, oxygen Chest x-ray suspicious for pneumonia of right lobe Alcoholism , delirium tremens Continue CIWA protocol Seizure precautions Metabolic encephalopathy Likely related to delirium tremens, still rather confused Continue with soft restraints Follow for improvement Nicotine dependence Nicotine patch Hypokalemia Replace and monitor as needed DVT prophylaxis SCDs (2) Pneumonia Qualifiers: Pneumonia type: due to unspecified organism Laterality: right Lung location : lower lobe of lung Qualified Code(s): J18.1 - Lobar pneumonia, unspecified organism
[2018-07-05] MEDS: levoFLOXacin 750 MG Tablet PO SCH (22:00)
[2018-07-06 07:29] LABS: Hematocrit 33.3 % (35.0-46.0); Hemoglobin 11.1 gm/dL (11.6-15.3); Mean Corpuscular HGB Conc 33.3 % (32.0-36.0); Mean Corpuscular Hemoglobin 34.7 pg (27.0-34.0); Mean Corpuscular Volume 104.4 fL (80.0-100.0); Mean Platelet Volume 8.1 fL (7.0-11.0); Platelet Count 539 th/mm3 (150-450); Red Blood Count 3.19 mil/mm3 (4.00-5.30); Red Cell Distribution Width 13.7 % (11.6-17.2); White Blood Count 9.9 th/mm3 (4.0-11.0)
[2018-07-06 07:40] LABS: Anion Gap 10 meq/L (5-15); Blood Urea Nitrogen 2 mg/dL (7-18); Calcium 7.8 mg/dL (8.5-10.1); Carbon Dioxide 25.3 meq/L (21.0-32.0); Chloride 104 meq/L (98-107); Glomerular Filtration Rate Greater Than 89 mL/min (>89); Glucose,Random 89 mg/dL (74-106); Potassium 3.6 meq/L (3.5-5.1); Sodium 139 meq/L (136-145)
[2018-07-06] MEDS: LORazepam 1 MG Tablet PO PRN ×3 (08:20→22:30)
--- NOTE | 2018-07-06 11:59 | P.PNPAL ---
Reason for Visit Reason for visit: a. To assist with evaluation and management of symptoms including: pain, dyspnea, confusion b. To assist medical decision maker(s) with: better understanding of current medical conditions; weighing benefits/burdens of medical treatment options; making medical treatment decisions. Subjective Subjective/Interval History: Patient is a 68 year old homeless, female who was admitted to [facility] ED on 06/29 with pneumonia, leukocytosis, hypokalemia and EtOH intoxication. Dual visit with Petra Santo (Palliative REGISTRATION SCHEDULING SPECIALIST) for symptom management (pain, dyspnea, confusion) and clarification of medical treatment goals. Patient is more alert today; oriented to person, place and situation. She states that she is homeless. We asked if she has anyone she would trust to make medical decisions on her behalf if she was not capacitated to do so, she states , "I'm the last one left." When asked if she has any friends she would like me to contact, she tells me that she wouldn't be homeless if she had friends. Discussed the process of cardiopulmonary resuscitation. Patient states she would not want to be placed on artificial life support, but would want to peacefully and naturally without aggressive interventions. Community DNR was signed. CODE STATUS changed to NO CODE. Living will documents were left at patient's bedside. Afebrile. Chest x-ray on 06/29/2018 was suspicious for pneumonia. Repeat blood cultures from 07/01/2018 were negative. Echocardiogram showed no evidence of vegetation; the left ventricular systolic function is hyperdynamic with an estimated EF of 65-70%. Patient is receiving Levaquin 750 mg PO q24 hours; infectious disease following. Patient denies dyspnea. She complains of a throbbing headache and generalized aching pain over her entire body. Pain is rated 9/10. Pain is being managed with Roslyn 5/325 is available every 6 hours PRN for pain rated 1-10. Discuss Objective Vital Signs: Vital Signs 07/05/18 12:00 07/05/18 16:00 07/05/18 20:00 Temperature 97.6 F 97.8 F 98.6 F Pulse Rate 79 86 92 H Respiratory Rate 20 20 17 Blood Pressure 131/69 145/67 H 132/98 H Pulse Oximetry 97 97 97 07/06/18 00:00 07/06/18 04:00 07/06/18 08:00 Temperature 98.1 F 97.9 F 97.9 F Pulse Rate 77 81 101 H Respiratory Rate 14 18 16 Blood Pressure 140/87 104/56 L 147/63 H Pulse Oximetry 95 96 97 Intake & Output 07/05/18 07/06/18 07/06/18 18:59 06:59 18:59 Intake Total 800 / 800 2420 / 2420 Balance 800 / 800 2420 / 2420 Weight 48.4 kg Intake: IV 800 / 800 1999 / 1999 NS + KCl 20 mEq Inj 1,000 ML @ 800 / 800 1999 / 1999 100 mls/hr IV.CONT .Q10H [facility] Rx #:[id number] Oral 420 / 420 Other: # Incontinent Voids 2 Date of Last Bowel Movement 07/04/18 07/05/18 # Bowel Movements 1 Physical Exam: CONSTITUTIONAL/GENERAL: This is an disheveled appearing female in no acute distress. TUBES/LINES/DRAINS: PIV SKIN: No rashes or lesions. Ecchymoses on upper extremities. No wounds seen anteriorly. Skin temperature appropriate. Not diaphoretic. HEAD: Atraumatic. Normocephalic. EYES: Pupils equal and round and reactive. Scleral icterus. No injection or drainage. Fundi not examined. ENT: Hearing grossly normal. Nose without bleeding or purulent drainage. Throat without visible erythema, exudates, masses, or lesions. NECK: Trachea midline. Supple, nontender. No palpable thyroid enlargement or nodularity. CARDIOVASCULAR: Regular rate and rhythm without murmurs, gallops, or rubs. No JVD. Peripheral pulses symmetric. RESPIRATORY/CHEST: Symmetric, unlabored respirations. Breath sounds equal bilaterally. No wheezes, rales, or rhonchi. No use of accessory muscles GASTROINTESTINAL: Abdomen soft, non-tender, nondistended. Bowel sounds present. GENITOURINARY: Without palpable bladder distension. MUSCULOSKELETAL: Extremities without clubbing, cyanosis, or edema. No obvious deformities. LYMPHATICS: No palpable cervical or supraclavicular adenopathy. NEUROLOGICAL: Oriented to person, place and situation. Answers questions and follows commands. Able to make her needs known. Moves extremities x 4 PSYCHIATRIC: No obvious anxiety/depression. No apparent hallucinations or other psychotic thought process. Diagnostic Tests Laboratory: Laboratory Results - last 72 hr 07/03/18 07/06/18 07/06/18 13:05 06:30 06:30 WBC 9.9 RBC 3.19 L Hgb 11.1 L Hct 33.3 L MCV 104.4 H MCH 34.7 H MCHC 33.3 RDW 13.7 Plt Count 539 H MPV 8.1 Sodium 139 Potassium 3.6 Chloride 104 Carbon Dioxide 25.3 Anion Gap 10 BUN 2 L Creatinine 0.34 L Estimated GFR Greater than 89 Random Glucose 89 Calcium 7.8 L Vancomycin Trough 11.3 H Result Diagrams: 07/06/18 06:30 07/06/18 06:30 Microbiology: Microbiology 07/01/18 18:30 Aerobic Blood Culture - Final Blood - Peripheral No growth in 5 days Anaerobic Blood Culture - Final No growth in 5 days 07/01/18 18:25 Aerobic Blood Culture - Final Blood - Peripheral No growth in 5 days Anaerobic Blood Culture - Final No growth in 5 days 06/30/18 15:32 Aerobic Blood Culture - Final Blood - Peripheral Staphylococcus coag negative Anaerobic Blood Culture - Final Staphylococcus coag negative 06/30/18 01:05 Aerobic Blood Culture - Final Blood - Peripheral Staphylococcus coag negative Anaerobic Blood Culture - Final Staphylococcus coag negative Imaging: Chest X-Ray 06/29/18 21:20 CONCLUSION: Right lower lung atelectasis or consolidation. Chronic calcification seen throughout the mid and upper lungs being more prominent on the left. Assessment and Plan - Disease Oriented Problem List (1) COPD (chronic obstructive pulmonary disease) (2) Acute metabolic encephalopathy (3) Sepsis (4) Coag negative Staphylococcus bacteremia (5) Conjunctivitis (6) Leukocytosis (7) Alcohol abuse with intoxication (8) History of tuberculosis - Symptom Scale (1) Confusion (2) SOB (shortness of breath) Comment: = Patient denies SOB on exam. = History of COPD and previous tuberculosis without recurrence = Chest x-ray on 06/29/18 showing infiltrates = On PO Levaquin and PRN Duonebs (3) Pain 0-10 Scale: 9 Pertinent Non-Medical Issues: Psychosocial: Patient is originally from [place], [place]. Patient left [place] when she was 19 years old. She states she has no family left and has no friends/contacts that she would want notified of her hospitalization Spiritual: Patient denies hindu affiliation Legal: Patient has regained capacity for medical decision-making. She states she does not have any family or friend to act in the role of healthcare proxy/ healthcare surrogate decision maker. [facility] report previously requested on ; awaiting results. Ethical issues impacting care: No known ethical issues impacting care. Important Contacts: No known family members, friends or contacts Prognosis: Patient is a encephalopathic, disheveled, homeless 68-year-old female with a history of COPD, previous TB and EtOH abuse who currently hospitalized for medical management of sepsis, possible EtOH withdrawal. Patient is acutely encephalopathic and lacks insight related to her medical conditions. It is unclear if patient will regain insight; she is at risk for compensation and functional decline. Code Status: Full Code Plan: * NO CODE- DNR/DNI * Decision making: Patient has regained capacity for medical decision making. She states she does not have anyone act in the role of HCP/HCS decision maker. [employer] report was previously requested on ; results pending. * Discussed the process of cardiopulmonary resuscitation. Patient states she would not want to be placed on artificial life support, but would want to peacefully and naturally without aggressive interventions. Community DNR was signed. CODE STATUS changed to NO CODE. * Goals remain aggressive up to the point of cardiopulmonary resuscitation. * Symptom management: = Dyspnea: Patient presented with complaints of cough and dyspnea. She has a history of TB in the past (reportedly treated) and COPD. Chest x-ray showing right lower lung atelectasis or consolidation. On Levaquin PO; PRN Duonebs q4 hours Infectious disease following. = Confusion: Acute encephalopathy resolving. Contributing factors likely include included metabolic encephalopathy, sepsis, EtOH abuse/withdrawal. WA protocol ordered. PRN Lorazepam and Haldol available. = Pain: Patient complains of a throbbing headache and generalized aching pain over her entire body. Pain is rated 9/10. Pain is being managed with Roslyn 5/325 is available every 6 hours PRN for pain rated 1-10. Monitor clinically. * Palliative care will follow this patient throughout her hospitalization to establish trust, assist with symptom management, assist with locating appropriate healthcare proxy decision-maker and clarification of medical treatment goals Time Spent Time Periods: 5272-8109 Total Floor Time (mins): 58 Face to Face Time (mins): 20 >50% Time in Counseling or Coordination of Care: Yes (Note review, team collaboration, exam, adv care planning)
--- NOTE | 2018-07-06 14:19 | P.PNID ---
Subjective Remarks: ID Coverage is a 68 y/o homeless female with a history or COPD and etoh abuse, She reportedly presented to the ED with a cough and sob. Patient states for the last few days she has had increasing sob, with a productive cough, fever and chills. She states she does have a history of TB but has not had a reoccurrence lately. She denies any chest pain, headaches or dizziness. Patient was admitted to the regular floor. CXR shows infiltrate. Sepsis workup initiated. Blood cultures are positive for GP bacteria and ID consulted for the same. At the time of my evaluation, patient is on regular floor on room air. She is currently in restraints as she pulling on her IV lines and ID badge etc and wishes to go home. She appears to be withdrawing from Alcohol or other substances if any. She is restless, at times agitated and pulling on her restraints. She is poorly kempt and has dirt on her skin and foul smell from her clothes and body. Notes reviewed Temps ok Less restless today 2 BC on admission with different Coag Neg Staph Repeat BC negative [place] and pneumo Ag negative WBC down to normal No rash No diarrhea Antibiotics: Levaquin Lines: Lines ok Past Medical History: reviewed Allergies/Adverse Reactions: Allergies penicillin G Allergy (Severe, Verified 06/29/18 21:10) SOB Sulfa (Sulfonamide Antibiotics) Allergy (Severe, Verified 06/29/18 21:10) Redness of Skin Objective Vital Signs 07/05/18 16:00 07/05/18 20:00 07/06/18 00:00 Temperature 97.8 F 98.6 F 98.1 F Pulse Rate 86 92 H 77 Respiratory Rate 20 17 14 Blood Pressure 145/67 H 132/98 H 140/87 Pulse Oximetry 97 97 95 07/06/18 04:00 07/06/18 08:00 07/06/18 12:00 Temperature 97.9 F 97.9 F 98.4 F Pulse Rate 81 101 H 86 Respiratory Rate 18 16 17 Blood Pressure 104/56 L 147/63 H 99/57 L Pulse Oximetry 96 97 95 Intake & Output 07/05/18 07/06/18 07/06/18 18:59 06:59 18:59 Intake Total 800 / 800 2420 / 2420 Balance 800 / 800 2420 / 2420 Weight 48.4 kg Intake: IV 800 / 800 1999 / 1999 NS + KCl 20 mEq Inj 1,000 ML @ 800 / 800 1999 / 1999 100 mls/hr IV.CONT .Q10H [facility] Rx #:[id number] Oral 420 / 420 Other: # Incontinent Voids 2 Date of Last Bowel Movement 07/04/18 07/05/18 # Bowel Movements 1 07/01/18 18:30 Blood - Peripheral Aerobic Blood Culture - Final No growth in 5 days 07/01/18 18:30 Blood - Peripheral Anaerobic Blood Culture - Final No growth in 5 days 07/01/18 18:25 Blood - Peripheral Aerobic Blood Culture - Final No growth in 5 days 07/01/18 18:25 Blood - Peripheral Anaerobic Blood Culture - Final No growth in 5 days 06/30/18 15:32 Blood - Peripheral Aerobic Blood Culture - Final Staphylococcus coag negative 06/30/18 15:32 Blood - Peripheral Anaerobic Blood Culture - Final Staphylococcus coag negative 06/30/18 01:05 Blood - Peripheral Aerobic Blood Culture - Final Staphylococcus coag negative 06/30/18 01:05 Blood - Peripheral Anaerobic Blood Culture - Final Staphylococcus coag negative Lab - Hematology Results 07/06/18 06:30 WBC 9.9 RBC 3.19 L Hgb 11.1 L Hct 33.3 L MCV 104.4 H MCH 34.7 H MCHC 33.3 RDW 13.7 Plt Count 539 H MPV 8.1 Lab - Chemistry Results 07/06/18 06:30 Sodium 139 Potassium 3.6 Chloride 104 Carbon Dioxide 25.3 Anion Gap 10 BUN 2 L Creatinine 0.34 L Estimated GFR Greater than 89 Random Glucose 89 Calcium 7.8 L Imaging: ITS Impressions Chest X-Ray 06/29/18 21:20 CONCLUSION: Right lower lung atelectasis or consolidation. Chronic calcification seen throughout the mid and upper lungs being more prominent on the left. Physical Exam: GENERAL: Awakens easily, looks calm. SKIN: Cool and dry, no generalized rash HEAD: Atraumatic. Normocephalic. No temporal or scalp tenderness. EYES: Pupils equal round and reactive. Scleral icterus. No injection or drainage. No petechia ENT: Moist mucosa, No nasal discharge NECK: Trachea midline. Supple, nontender, no meningeal signs. CARDIOVASCULAR: HS audible. RESPIRATORY: Clear to auscultation bilaterally. GASTROINTESTINAL: Abdomen soft nontender. MUSCULOSKELETAL: Extremities without clubbing, cyanosis. NEUROLOGICAL: Non focal. Confused. Psych agitated and restless at times. IV line sites ok. Assessment and Plan - Plan Impression Sepsis present on admission Pneumonia ? aspiration vs CAP. H/o TB in past reportedly treated. Different Coag Neg Staph in , C/W contamination Alcoholism, appears to be withdrawing. COPD history Acute metabolic encephalopathy: alcohol, sepsis, metabolic. Penicillin allergy Recs: Continue Levaquin (atypical as well as CAP coverage) Repeat CXR to follow up infiltrates - if stable, will stop Levaquin Monitor progress
--- NOTE | 2018-07-06 15:06 | XR ---
EXAM DATE: 07/06/2018 3:01 PM EDT AGE/SEX: 68 years / Female INDICATIONS: . Shortness of breath CLINICAL DATA: This is the patient's subsequent encounter. Patient reports that signs and symptoms h ave been present for 4 - 6 days and indicates a pain score of 0/10. MEDICAL/SURGICAL HISTORY: . History of tuberculosis and pneumonia None. [place] [facility] [place]. . FINDINGS: Right lung base infiltrate and left lung base consolidation are present not present previou sly. Tiny pleural effusions may be present bilaterally best on the lateral projection. There are no o ther changes. CONCLUSION: Right lung base infiltrate and left lung base consolidation not present previously and questionable t iny bilateral pleural effusions. Electronically signed by: Corrie Soliz MD 07/06/2018 3:05 PM EDT
--- NOTE | 2018-07-06 18:17 | P.PNIM ---
Subjective Interval history: Patient is alert and oriented 3 today. She explains to me that she is homeless but that she does not like people and therefore skeptical about detention facilities although she is qualified with her Medicare. Physical Exam Vital signs: Vital Signs 07/05/18 20:00 07/06/18 00:00 07/06/18 04:00 Temperature 98.6 F 98.1 F 97.9 F Pulse Rate 92 H 77 81 Respiratory Rate 17 14 18 Blood Pressure 132/98 H 140/87 104/56 L Pulse Oximetry 97 95 96 07/06/18 08:00 07/06/18 12:00 07/06/18 16:00 Temperature 97.9 F 98.4 F 98.2 F Pulse Rate 101 H 86 72 Respiratory Rate 16 17 18 Blood Pressure 147/63 H 99/57 L 97/53 L Pulse Oximetry 97 95 97 Intake & Output 07/05/18 07/06/18 07/06/18 18:59 06:59 18:59 Intake Total 800 / 800 2420 / 2420 1000 / 1000 Balance 800 / 800 2420 / 2420 1000 / 1000 Weight 48.4 kg Intake: IV 800 / 800 2000 / 2000 1000 / 1000 NS + KCl 20 mEq Inj 1,000 ML @ 800 / 800 2000 / 2000 1000 / 1000 100 mls/hr IV.CONT .Q10H [facility] Rx #:[id number] Oral 420 / 420 Other: # Incontinent Voids 2 Date of Last Bowel Movement 07/04/18 07/05/18 07/04/18 # Bowel Movements 1 Narrative: GENERAL: NAD, A&Ox3 HEAD: Normocephalic. NECK: Supple, trachea midline. No lymphadenopathy. EYES: No scleral icterus. No injection or drainage. CARDIOVASCULAR: Regular rate and rhythm without murmurs, gallops, or rubs. RESPIRATORY: Breath sounds equal bilaterally. No accessory muscle use. GASTROINTESTINAL: Abdomen soft, non-tender, nondistended. MUSCULOSKELETAL: No cyanosis, or edema. SKIN: Warm and dry. NEURO: No focal neurological deficits. Results - Labs CBC & Chem 7: 07/06/18 06:30 07/06/18 06:30 Laboratory Results - last 24 hr 07/06/18 07/06/18 06:30 06:30 WBC 9.9 RBC 3.19 L Hgb 11.1 L Hct 33.3 L MCV 104.4 H MCH 34.7 H MCHC 33.3 RDW 13.7 Plt Count 539 H MPV 8.1 Sodium 139 Potassium 3.6 Chloride 104 Carbon Dioxide 25.3 Anion Gap 10 BUN 2 L Creatinine 0.34 L Estimated GFR Greater than 89 Random Glucose 89 Calcium 7.8 L Microbiology 07/01/18 18:30 Blood - Peripheral Aerobic Blood Culture - Final No growth in 5 days 07/01/18 18:30 Blood - Peripheral Anaerobic Blood Culture - Final No growth in 5 days 07/01/18 18:25 Blood - Peripheral Aerobic Blood Culture - Final No growth in 5 days 07/01/18 18:25 Blood - Peripheral Anaerobic Blood Culture - Final No growth in 5 days - Imaging Impressions Chest X-Ray 07/06/18 00:00 CONCLUSION: Right lung base infiltrate and left lung base consolidation not present previously and questionable tiny bilateral pleural effusions. Assessment and Plan - Assessment (1) Delirium tremens Code(s): F10.231 - Alcohol dependence with withdrawal delirium Status: Acute (2) Pneumonia Code(s): J18.9 - Pneumonia, unspecified organism Status: Acute (3) COPD (chronic obstructive pulmonary disease) Code(s): J44.9 - Chronic obstructive pulmonary disease, unspecified Status: Acute - Plan 68-year-old female admitted secondary to pneumonia and severe sepsis, now with delirium tremens Severe Sepsis, bacteremia Following cultures, resolving 2D echocardiogram did not demonstrate vegetations, ejection fraction 65-70% Community-acquired pneumonia, COPD Continue IV Levaquin, Symbicort, duo nebs, oxygen Chest x-ray suspicious for pneumonia of right lobe Alcoholism , delirium tremens Continue CIWA protocol with Ativan Continue seizure precautions Metabolic encephalopathy Likely related to delirium tremens, still rather confused Continue with soft restraints Follow for improvement Nicotine dependence Nicotine patch Hypokalemia Replace and monitor as needed DVT prophylaxis SCDs (2) Pneumonia Qualifiers: Pneumonia type: due to unspecified organism Laterality: right Lung location : lower lobe of lung Qualified Code(s): J18.1 - Lobar pneumonia, unspecified organism
[2018-07-06] MEDS: levoFLOXacin 750 MG Tablet PO SCH (22:30)
[2018-07-07] MEDS: LORazepam 1 MG Tablet PO PRN ×3 (05:41→18:13)
--- NOTE | 2018-07-07 13:25 | P.PNID ---
Subjective Remarks: ID Coverage is a 68 y/o homeless female with a history or COPD and etoh abuse, She reportedly presented to the ED with a cough and sob. Patient states for the last few days she has had increasing sob, with a productive cough, fever and chills. She states she does have a history of TB but has not had a reoccurrence lately. She denies any chest pain, headaches or dizziness. Patient was admitted to the regular floor. CXR shows infiltrate. Sepsis workup initiated. Blood cultures are positive for GP bacteria and ID consulted for the same. At the time of my evaluation, patient is on regular floor on room air. She is currently in restraints as she pulling on her IV lines and ID badge etc and wishes to go home. She appears to be withdrawing from Alcohol or other substances if any. She is restless, at times agitated and pulling on her restraints. She is poorly kempt and has dirt on her skin and foul smell from her clothes and body. Notes reviewed Temps ok Has been calm 2 BC on admission with different Coag Neg Staph Repeat BC negative [place] and pneumo Ag negative WBC down to normal No rash No diarrhea CXR looks stable Antibiotics: Levaquin Lines: Lines ok Past Medical History: reviewed Allergies/Adverse Reactions: Allergies penicillin G Allergy (Severe, Verified 06/29/18 21:10) SOB Sulfa (Sulfonamide Antibiotics) Allergy (Severe, Verified 06/29/18 21:10) Redness of Skin Objective Vital Signs 07/06/18 16:00 07/06/18 20:00 07/07/18 00:00 Temperature 98.2 F 98.0 F 98.3 F Pulse Rate 72 80 76 Respiratory Rate 18 17 17 Blood Pressure 97/53 L 102/56 L 131/60 Pulse Oximetry 97 96 95 07/07/18 04:00 07/07/18 08:00 Temperature 98.2 F 97.9 F Pulse Rate 84 87 Respiratory Rate 18 20 Blood Pressure 117/56 L 114/56 L Pulse Oximetry 95 94 L Intake & Output 07/06/18 07/07/18 07/07/18 18:59 06:59 18:59 Intake Total 1840 / 1840 1999 / 1999 1000 / 1000 Balance 1840 / 1840 1999 1000 / 1000 Weight 49 kg Intake: IV 999 / 999 NS + KCl 20 mEq Inj 1,000 ML @ 999 / 999 / 999 100 mls/hr IV.CONT .Q10H [facility] Rx #:[id number] Oral 840 / 840 0 / 0 Other: # Incontinent Voids 4 Date of Last Bowel Movement 07/04/18 07/05/18 07/05/18 # Bowel Movements 0 07/01/18 18:30 Blood - Peripheral Aerobic Blood Culture - Final No growth in 5 days 07/01/18 18:30 Blood - Peripheral Anaerobic Blood Culture - Final No growth in 5 days 07/01/18 18:25 Blood - Peripheral Aerobic Blood Culture - Final No growth in 5 days 07/01/18 18:25 Blood - Peripheral Anaerobic Blood Culture - Final No growth in 5 days Lab - Hematology Results 07/06/18 06:30 WBC 9.9 RBC 3.19 L Hgb 11.1 L Hct 33.3 L MCV 104.4 H MCH 34.7 H MCHC 33.3 RDW 13.7 Plt Count 539 H MPV 8.1 Lab - Chemistry Results 07/06/18 06:30 Sodium 139 Potassium 3.6 Chloride 104 Carbon Dioxide 25.3 Anion Gap 10 BUN 2 L Creatinine 0.34 L Estimated GFR Greater than 89 Random Glucose 89 Calcium 7.8 L Imaging: ITS Impressions Chest X-Ray 07/06/18 00:00 CONCLUSION: Right lung base infiltrate and left lung base consolidation not present previously and questionable tiny bilateral pleural effusions. Physical Exam: GENERAL: Awakens easily, looks calm. Has no restraints SKIN: Cool and dry, no generalized rash HEAD: Atraumatic. Normocephalic. No temporal or scalp tenderness. EYES: Pupils equal round and reactive. Scleral icterus. No injection or drainage. No petechia ENT: Moist mucosa, No nasal discharge NECK: Trachea midline. Supple, nontender, no meningeal signs. CARDIOVASCULAR: HS audible. RESPIRATORY: Clear to auscultation bilaterally. GASTROINTESTINAL: Abdomen soft nontender. MUSCULOSKELETAL: Extremities without clubbing, cyanosis. NEUROLOGICAL: Non focal. Confused. Psych agitated and restless at times. IV line sites ok. Assessment and Plan - Plan Impression Sepsis present on admission Pneumonia ? aspiration vs CAP. H/o TB in past reportedly treated. Different Coag Neg Staph in BC, C/W contamination Alcoholism, appears to be withdrawing. COPD history Acute metabolic encephalopathy: alcohol, sepsis, metabolic. Penicillin allergy Recs: Continue Levaquin (atypical as well as CAP coverage) - complete Abx 07/09 Clinically stable from ID standpoint Will be available prn Please reconsult if with any new ID issue or question
--- NOTE | 2018-07-07 14:08 | P.PNPAL ---
Reason for Visit Reason for visit: a. To assist with evaluation and management of symptoms including: pain, dyspnea, constipation b. To assist medical decision maker(s) with: better understanding of current medical conditions; weighing benefits/burdens of medical treatment options; making medical treatment decisions. Subjective Subjective/Interval History: Patient is a 68 year old homeless, female who was admitted to [place] ED on 06/29 with pneumonia, leukocytosis, hypokalemia and EtOH intoxication. Dual visit with Petra Santo (Palliative CASE FILLER) for symptom management of pain, dyspnea, constipation Patient oriented to person, place and time. She answers questions and follows simple commands. Able to make her needs known. Patient denies dyspnea. Reports ongoing generalized aching pain rated 9/10; PRN Ward (5/325mg) is available q6 hours for management of pain. Patient has received 4 doses in the past 24 hours. Afebrile; hemodynamically. Leukocytosis has resolved. Initial blood cultures on admission with Coag Negative Staph; repeat blood cultures on 07/01/2018 were negative. Echocardiogram showed no evidence of vegetation; the left ventricular systolic function is hyperdynamic with an estimated EF of 65-70 %. Follow-up chest x-ray on 07/06/2018 showed right lung base infiltrate and left lung base consolidation not present previously and questionable tiny bilateral pleural effusions. Patient remains on Levaquin, antibiotic to be completed on 07/09/2018. ID signing off Educated patient of risk for constipation secondary to narcotics and reduced mobility. She states she typically has diarrhea. LBM: 06/04/18. Senokot, lactulose, dulcolax suppository and milk of magnesia are available PRN for constipation. Objective Vital Signs: Vital Signs 07/06/18 16:00 07/06/18 20:00 07/07/18 00:00 Temperature 98.2 F 98.0 F 98.3 F Pulse Rate 72 80 76 Respiratory Rate 18 17 17 Blood Pressure 97/53 L 102/56 L 131/60 Pulse Oximetry 97 96 95 07/07/18 04:00 07/07/18 08:00 Temperature 98.2 F 97.9 F Pulse Rate 84 87 Respiratory Rate 18 20 Blood Pressure 117/56 L 114/56 L Pulse Oximetry 95 94 L Intake & Output 07/06/18 07/07/18 07/07/18 18:59 06:59 18:59 Intake Total 1840 / 1840 1999 / 999 Balance 1840 / 1840 1999 / 999 Weight 49 kg Intake: IV 999 NS + KCl 20 mEq Inj 1,000 ML @ 999 100 mls/hr IV.CONT .Q10H [facility] Rx #:[id number] Oral 840 / 840 0 / 0 Other: # Incontinent Voids 4 Date of Last Bowel Movement 07/04/18 07/05/18 07/05/18 # Bowel Movements 0 Physical Exam: CONSTITUTIONAL/GENERAL: This is an disheveled appearing female in no acute distress. TUBES/LINES/DRAINS: PIV SKIN: No rashes or lesions. Ecchymoses on upper extremities. No wounds seen anteriorly. Skin temperature appropriate. Not diaphoretic. HEAD: Atraumatic. Normocephalic. EYES: Pupils equal and round and reactive. Scleral icterus. No injection or drainage. Fundi not examined. ENT: Hearing grossly normal. Nose without bleeding or purulent drainage. Throat without visible erythema, exudates, masses, or lesions. NECK: Trachea midline. Supple, nontender. No palpable thyroid enlargement or nodularity. CARDIOVASCULAR: Regular rate and rhythm without murmurs, gallops, or rubs. No JVD. Peripheral pulses symmetric. RESPIRATORY/CHEST: Symmetric, unlabored respirations. Breath sounds equal bilaterally. No wheezes, rales, or rhonchi. No use of accessory muscles GASTROINTESTINAL: Abdomen soft, non-tender, nondistended. Bowel sounds present. GENITOURINARY: Without palpable bladder distension. MUSCULOSKELETAL: Extremities without clubbing, cyanosis, or edema. No obvious deformities. LYMPHATICS: No palpable cervical or supraclavicular adenopathy. NEUROLOGICAL: Oriented to person, place and situation. Answers questions and follows commands. Able to make her needs known. Moves extremities x 4 PSYCHIATRIC: No obvious anxiety/depression. No apparent hallucinations or other psychotic thought process. Diagnostic Tests Laboratory: Laboratory Results - last 72 hr 07/06/18 07/06/18 06:30 06:30 WBC 9.9 RBC 3.19 L Hgb 11.1 L Hct 33.3 L MCV 104.4 H MCH 34.7 H MCHC 33.3 RDW 13.7 Plt Count 539 H MPV 8.1 Sodium 139 Potassium 3.6 Chloride 104 Carbon Dioxide 25.3 Anion Gap 10 BUN 2 L Creatinine 0.34 L Estimated GFR Greater than 89 Random Glucose 89 Calcium 7.8 L Result Diagrams: 07/06/18 06:30 07/06/18 06:30 Microbiology: Microbiology 07/01/18 18:30 Aerobic Blood Culture - Final Blood - Peripheral No growth in 5 days Anaerobic Blood Culture - Final No growth in 5 days 07/01/18 18:25 Aerobic Blood Culture - Final Blood - Peripheral No growth in 5 days Anaerobic Blood Culture - Final No growth in 5 days Imaging: Chest X-Ray 07/06/18 00:00 CONCLUSION: Right lung base infiltrate and left lung base consolidation not present previously and questionable tiny bilateral pleural effusions. Assessment and Plan - Disease Oriented Problem List (1) COPD (chronic obstructive pulmonary disease) (2) Acute metabolic encephalopathy (3) Sepsis (4) Coag negative Staphylococcus bacteremia (5) Conjunctivitis (6) Leukocytosis (7) Alcohol abuse with intoxication (8) History of tuberculosis - Symptom Scale (1) SOB (shortness of breath) (2) Pain 0-10 Scale: 9 Comment: = Complaining of generalized aching pain over her entire body. Pain is rated 9/10. = Pain is being managed with Ward 5/325 is available every 6 hours PRN for pain rated 1-10. (3) Constipation Pertinent Non-Medical Issues: Psychosocial: Patient is originally from [place], [place]. Patient left [place] when she was 19 years old. She states she has no family left and has no friends/contacts that she would want notified of her hospitalization Spiritual: Patient denies buddhist affiliation Legal: Patient has regained capacity for medical decision-making. She states she does not have any family or friend to act in the role of healthcare proxy/ healthcare surrogate decision maker. [facility] report previously requested on ; awaiting results. Ethical issues impacting care: No known ethical issues impacting care. Important Contacts: No known family members, friends or contacts Prognosis: Patient is a encephalopathic, disheveled, homeless 68-year-old female with a history of COPD, previous TB and EtOH abuse who currently hospitalized for medical management of sepsis, possible EtOH withdrawal. Patient is acutely encephalopathic and lacks insight related to her medical conditions. It is unclear if patient will regain insight; she is at risk for compensation and functional decline. Code Status: No Code DNR Plan: * NO CODE- DNR/DNI * Decision making: Patient has regained capacity for medical decision making. She states she does not have anyone act in the role of HCP/HCS decision maker. [employer] report was previously requested on ; results pending. * Discussed the process of cardiopulmonary resuscitation. Patient states she would not want to be placed on artificial life support, but would want to peacefully and naturally without aggressive interventions. Community DNR was signed 07/06/18. * Goals remain aggressive up to the point of cardiopulmonary resuscitation. * Symptom management: = Dyspnea: Patient presented with complaints of cough and dyspnea. She has a history of TB in the past (reportedly treated) and COPD. Follow-up chest x-ray on 07/06/2018 showed right lung base infiltrate and left lung base consolidation not present previously and questionable tiny bilateral pleural effusions. Patient remains on Levaquin, antibiotic to be completed on 07/09/2018. ID signing off = Constipation: Educated patient of risk for constipation secondary to narcotics and reduced mobility. LBM: 06/04/18. Senokot, lactulose, dulcolax suppository and milk of magnesia are available PRN for constipation. = Pain: Patient complains generalized aching pain over her entire body. Pain is rated 9/10. Pain is being managed with Ward 5/325 is available every 6 hours PRN for pain rated 1-10. Monitor clinically. * Palliative care will follow this patient throughout her hospitalization to establish trust, assist with symptom management, assist with locating appropriate healthcare proxy decision-maker and clarification of medical treatment goals Attestation Attestation: To help prompt me to consider important information that might be impacting today's encounter and assessment, information from prior notes written by myself or my colleagues may have been "brought forward" into today's note. My signature on this note, however, is an attestation that I personally performed the exam, history, and/or decision-making noted today, and, unless otherwise indicated, the interactions with patient, family, and staff as well as the review of records all occurred today. I also attest that the listed assessment and stated plan reflect my best clinical judgment today based on the combination of historical information, prior notes, and today's exam/ interactions. When time spent is documented, it refers only to time spent today by the signer, or if indicated, combined time spent today by collaborating physician/nurse practitioner.
--- NOTE | 2018-07-07 17:40 | P.PNIM ---
Subjective Interval history: Patient remains alert and oriented 3, no signs of alcohol withdrawal. She states she has not walked in a long time, has been worked up in the past and had back surgery in the past. She does not wish to have further imaging because she does not wish to have any further surgeries. Physical Exam Vital signs: Vital Signs 07/06/18 20:00 07/07/18 00:00 07/07/18 04:00 Temperature 98.0 F 98.3 F 98.2 F Pulse Rate 80 76 84 Respiratory Rate 17 17 18 Blood Pressure 102/56 L 131/60 117/56 L Pulse Oximetry 96 95 95 07/07/18 08:00 07/07/18 12:00 Temperature 97.9 F 97.9 F Pulse Rate 87 87 Respiratory Rate 20 20 Blood Pressure 114/56 L 115/62 Pulse Oximetry 94 L 95 Intake & Output 07/06/18 07/07/18 07/07/18 18:59 06:59 18:59 Intake Total 1840 / 1840 1999 / 1999 1000 / 1000 Balance 1840 / 1840 1999 / 1999 1000 / 1000 Weight 49 kg Intake: IV 1000 / 1000 1999 / 1999 1000 / 1000 NS + KCl 20 mEq Inj 1,000 ML @ 1000 / 1000 1999 / 1999 1000 / 1000 100 mls/hr IV.CONT .Q10H [facility] Rx #:[id number] Oral 840 / 840 0 / 0 Other: # Incontinent Voids 4 Date of Last Bowel Movement 07/04/18 07/05/18 07/05/18 # Bowel Movements 0 Narrative: GENERAL: NAD, A&Ox3 HEAD: Normocephalic. NECK: Supple, trachea midline. No lymphadenopathy. EYES: No scleral icterus. No injection or drainage. CARDIOVASCULAR: Regular rate and rhythm without murmurs, gallops, or rubs. RESPIRATORY: Breath sounds equal bilaterally. No accessory muscle use. GASTROINTESTINAL: Abdomen soft, non-tender, nondistended. MUSCULOSKELETAL: No cyanosis, or edema. SKIN: Warm and dry. NEURO: No focal neurological deficits. Results - Labs CBC & Chem 7: 07/06/18 06:30 07/06/18 06:30 Assessment and Plan - Assessment (1) Delirium tremens Code(s): F10.231 - Alcohol dependence with withdrawal delirium Status: Acute (2) Pneumonia Code(s): J18.9 - Pneumonia, unspecified organism Status: Acute (3) COPD (chronic obstructive pulmonary disease) Code(s): J44.9 - Chronic obstructive pulmonary disease, unspecified Status: Acute - Plan 68-year-old female admitted secondary to pneumonia and severe sepsis, now with delirium tremens Severe Sepsis, bacteremia Following cultures, resolving 2D echocardiogram did not demonstrate vegetations, ejection fraction 65-70% Continuing p.o. Levaquin Community-acquired pneumonia, COPD Continue p.o. Levaquin, Symbicort, duo nebs, oxygen Chest x-ray suspicious for pneumonia of right lobe Patient remains afebrile, following CBC for leukocyte trend Alcoholism , delirium tremens Continue CIWA protocol with Ativan Continue seizure precautions Currently stable no issues Metabolic encephalopathy Likely related to delirium tremens Soft restraints removed yesterday Alert and oriented 3 Nicotine dependence Nicotine patch Hypokalemia Replace and monitor as needed DVT prophylaxis SCDs (2) Pneumonia Qualifiers: Pneumonia type: due to unspecified organism Laterality: right Lung location : lower lobe of lung Qualified Code(s): J18.1 - Lobar pneumonia, unspecified organism
[2018-07-07] MEDS: Tobramycin 0.3% Opth Drops 5 ML Bottle LEFT EYE SCH (21:53)
[2018-07-07] MEDS: levoFLOXacin 750 MG Tablet PO SCH (21:54)
[2018-07-08] MEDS: LORazepam 1 MG Tablet PO PRN ×4 (00:09→18:29)
[2018-07-08] MEDS: Tobramycin 0.3% Opth Drops 5 ML Bottle LEFT EYE SCH ×4 (08:43→20:46)
[2018-07-08 09:11] LABS: Hematocrit 33.7 % (35.0-46.0); Hemoglobin 11.5 gm/dL (11.6-15.3); Mean Corpuscular HGB Conc 34.3 % (32.0-36.0); Mean Corpuscular Hemoglobin 35.2 pg (27.0-34.0); Mean Corpuscular Volume 102.5 fL (80.0-100.0); Platelet Count 592 th/mm3 (150-450); Red Blood Count 3.28 mil/mm3 (4.00-5.30); Red Cell Distribution Width 13.4 % (11.6-17.2); White Blood Count 9.7 th/mm3 (4.0-11.0)
[2018-07-08 09:34] LABS: Anion Gap 9 meq/L (5-15); Blood Urea Nitrogen 3 mg/dL (7-18); Calcium 8.5 mg/dL (8.5-10.1); Carbon Dioxide 27.4 meq/L (21.0-32.0); Chloride 105 meq/L (98-107); Glomerular Filtration Rate Greater Than 89 mL/min (>89); Glucose,Random 98 mg/dL (74-106); Potassium 3.6 meq/L (3.5-5.1); Sodium 141 meq/L (136-145)
--- NOTE | 2018-07-08 12:20 | P.PNID ---
Infectious Disease Brief Note Chart reviewed. Clinically doing well. Complete abx course per note. Will sign off please call back if any change in clinical condition. Vital Signs - 24 hr 07/07/18 16:00 07/07/18 20:00 07/08/18 00:00 Temperature 98.1 F 98.2 F 98.1 F Pulse Rate 78 92 H 84 Respiratory Rate 20 18 15 Blood Pressure 100/56 L 107/58 L 125/62 Pulse Oximetry 96 96 96 07/08/18 04:00 07/08/18 08:00 Temperature 98.1 F Pulse Rate 80 Respiratory Rate 16 16 Blood Pressure 123/67 Pulse Oximetry 95 Laboratory Results - last 24 hr 07/08/18 07/08/18 08:04 08:04 WBC 9.7 RBC 3.28 L Hgb 11.5 L Hct 33.7 L MCV 102.5 H MCH 35.2 H MCHC 34.3 RDW 13.4 Plt Count 592 H MPV 8.0 Sodium 141 Potassium 3.6 Chloride 105 Carbon Dioxide 27.4 Anion Gap 9 BUN 3 L Creatinine 0.42 L Estimated GFR Greater than 89 Random Glucose 98 Calcium 8.5
--- NOTE | 2018-07-08 14:45 | P.PNPAL ---
Reason for Visit Reason for visit: a. To assist with evaluation and management of symptoms including: pain, dyspnea, constipation b. To assist medical decision maker(s) with: better understanding of current medical conditions; weighing benefits/burdens of medical treatment options; making medical treatment decisions. Subjective Subjective/Interval History: Patient is a 68 year old homeless, female who was admitted to [place] ED on 06/29 with pneumonia, leukocytosis, hypokalemia and EtOH intoxication. Follow up for symptom management of pain, dyspnea, constipation Patient oriented to person, place and time. She answers questions and follows simple commands. Able to make her needs known. Her shortness of breath has resolved. Apparently the patient hasn't walked in a long time. She tells me she uses her wheelchair to get around. Notes indicate the patient previously had some type of back surgery. She refuses further workup/imaging and does not want to go to rehab at discharge. Reporting generalized aching pain rated 9/10.PRN [place] (5/325mg) is available q6 hours for management of pain. Patient has received 4 doses in the past 24 hours. Afebrile; hemodynamically. Leukocytosis has resolved. Initial blood cultures on admission with Coag Negative Staph; repeat blood cultures on 07/01/2018 were negative. Echocardiogram showed no evidence of vegetation; the left ventricular systolic function is hyperdynamic with an estimated EF of 65-70 %. Follow-up chest x-ray on 07/06/2018 showed right lung base infiltrate and left lung base consolidation not present previously and questionable tiny bilateral pleural effusions. Patient remains on Levaquin, Symbicort, PRN Duonebs and supplemental oxygen as needed. LBM: 06/04/18. Senokot, lactulose, dulcolax suppository and milk of magnesia are available PRN for constipation. Objective Vital Signs: Vital Signs 07/07/18 16:00 07/07/18 20:00 07/08/18 00:00 Temperature 98.1 F 98.2 F 98.1 F Pulse Rate 78 92 H 84 Respiratory Rate 20 18 15 Blood Pressure 100/56 L 107/58 L 125/62 Pulse Oximetry 96 96 96 07/08/18 04:00 07/08/18 08:00 Temperature 98.1 F Pulse Rate 80 Respiratory Rate 16 16 Blood Pressure 123/67 Pulse Oximetry 95 Intake & Output 07/07/18 07/08/18 07/08/18 18:59 06:59 18:59 Intake Total 1000 / 1000 1000 / 1000 400 / 400 Output Total Balance 999 / 999 998 / 998 400 / 400 Weight 48.6 kg Intake: IV 1000 / 1000 1000 / 1000 400 / 400 NS + KCl 20 mEq Inj 1,000 ML @ 1000 / 1000 1000 / 1000 400 / 400 100 mls/hr IV.CONT .Q10H [facility] Rx #:[id number] Output: Urine Other: Date of Last Bowel Movement 07/05/18 07/05/18 Physical Exam: CONSTITUTIONAL/GENERAL: This is an disheveled appearing female in no acute distress. TUBES/LINES/DRAINS: PIV SKIN: No rashes or lesions. Ecchymoses on upper extremities. No wounds seen anteriorly. Skin temperature appropriate. Not diaphoretic. HEAD: Atraumatic. Normocephalic. EYES: Pupils equal and round and reactive. Scleral icterus. No injection or drainage. Fundi not examined. ENT: Hearing grossly normal. Nose without bleeding or purulent drainage. Throat without visible erythema, exudates, masses, or lesions. Poor dentation NECK: Trachea midline. Supple, nontender. No palpable thyroid enlargement or nodularity. CARDIOVASCULAR: Regular rate and rhythm without murmurs, gallops, or rubs. No JVD. Peripheral pulses symmetric. RESPIRATORY/CHEST: Symmetric, unlabored respirations. Breath sounds equal bilaterally. No wheezes, rales, or rhonchi. No use of accessory muscles GASTROINTESTINAL: Abdomen soft, non-tender, nondistended. Bowel sounds present. GENITOURINARY: Without palpable bladder distension. MUSCULOSKELETAL: Extremities without clubbing, cyanosis, or edema. No obvious deformities. LYMPHATICS: No palpable cervical or supraclavicular adenopathy. NEUROLOGICAL: Oriented to person, place and situation. Answers questions and follows commands. Able to make her needs known. Moves extremities x 4 PSYCHIATRIC: No obvious anxiety/depression. No apparent hallucinations or other psychotic thought process. Diagnostic Tests Laboratory: Laboratory Results - last 72 hr 07/06/18 07/06/18 07/08/18 06:30 06:30 08:04 WBC 9.9 9.7 RBC 3.19 L 3.28 L Hgb 11.1 L 11.5 L Hct 33.3 L 33.7 L MCV 104.4 H 102.5 H MCH 34.7 H 35.2 H MCHC 33.3 34.3 RDW 13.7 13.4 Plt Count 539 H 592 H MPV 8.1 8.0 Sodium 139 Potassium 3.6 Chloride 104 Carbon Dioxide 25.3 Anion Gap 10 BUN 2 L Creatinine 0.34 L Estimated GFR Greater than 89 Random Glucose 89 Calcium 7.8 L 07/08/18 08:04 WBC RBC Hgb Hct MCV MCH MCHC RDW Plt Count MPV Sodium 141 Potassium 3.6 Chloride 105 Carbon Dioxide 27.4 Anion Gap 9 BUN 3 L Creatinine 0.42 L Estimated GFR Greater than 89 Random Glucose 98 Calcium 8.5 Result Diagrams: 07/08/18 08:04 07/08/18 08:04 Microbiology: Microbiology 07/01/18 18:30 Aerobic Blood Culture - Final Blood - Peripheral No growth in 5 days Anaerobic Blood Culture - Final No growth in 5 days 07/01/18 18:25 Aerobic Blood Culture - Final Blood - Peripheral No growth in 5 days Anaerobic Blood Culture - Final No growth in 5 days Imaging: Chest X-Ray 07/06/18 00:00 CONCLUSION: Right lung base infiltrate and left lung base consolidation not present previously and questionable tiny bilateral pleural effusions. Assessment and Plan - Disease Oriented Problem List (1) COPD (chronic obstructive pulmonary disease) (2) Acute metabolic encephalopathy (3) Sepsis (4) Coag negative Staphylococcus bacteremia (5) Conjunctivitis (6) Leukocytosis (7) Alcohol abuse with intoxication (8) History of tuberculosis - Symptom Scale (1) SOB (shortness of breath) Comment: = Patient denies SOB on exam. = History of COPD and previous tuberculosis without recurrence = Follow-up chest x-ray on 07/06/2018 showed right lung base infiltrate and left lung base consolidation not present previously and questionable tiny bilateral pleural effusions. = Remains on Levaquin through 07/09/2018 and PRN Duonebs (2) Pain Comment: = Complaining of generalized aching pain over her entire body. Pain is rated 9/10. = Pain is being managed with [place] 5/325 is available every 6 hours PRN for pain rated 1-10. (3) Constipation Comment: = Educated patient of risk for constipation secondary to narcotics and reduced mobility. = LBM: 06/04/18. =Senokot, lactulose, dulcolax suppository and milk of magnesia are available PRN for constipation. Pertinent Non-Medical Issues: Psychosocial: Patient is originally from [place], [place]. Patient left [place] when she was 19 years old. She states she has no family left and has no friends/contacts that she would want notified of her hospitalization Spiritual: Patient denies jehovah's witness affiliation Legal: Patient has regained capacity for medical decision-making. She states she does not have any family or friend to act in the role of healthcare proxy/ healthcare surrogate decision maker. [employer] report previously requested on ; awaiting results. Ethical issues impacting care: No known ethical issues impacting care. Important Contacts: No known family members, friends or contacts Prognosis: Patient is a encephalopathic, disheveled, homeless 68-year-old female with a history of COPD, previous TB and EtOH abuse who currently hospitalized for medical management of sepsis, possible EtOH withdrawal. Patient is acutely encephalopathic and lacks insight related to her medical conditions. It is unclear if patient will regain insight; she is at risk for compensation and functional decline. Code Status: No Code DNR Plan: * NO CODE- DNR/DNI * Decision making: Patient has regained capacity for medical decision making. She states she does not have anyone act in the role of HCP/HCS decision maker. [employer] report was previously requested on ; results pending. * Discussed the process of cardiopulmonary resuscitation. Patient states she would not want to be placed on artificial life support, but would want to peacefully and naturally without aggressive interventions. Community DNR was signed 07/06/18. * Goals remain aggressive up to the point of cardiopulmonary resuscitation. * Symptom management: = Dyspnea: Patient presented with complaints of cough and dyspnea. She has a history of TB in the past (reportedly treated) and COPD. Follow-up chest x-ray on 07/06/2018 showed right lung base infiltrate and left lung base consolidation not present previously and questionable tiny bilateral pleural effusions. Patient remains on Levaquin, antibiotic to be completed on 07/09/2018. ID signing off = Constipation: Educated patient of risk for constipation secondary to narcotics and reduced mobility. LBM: 06/04/18. Senokot, lactulose, dulcolax suppository and milk of magnesia are available PRN for constipation. = Pain: Patient complains generalized aching pain over her entire body. Pain is rated 9/10. Pain is being managed with [place] 5/325 is available every 6 hours PRN for pain rated 1-10. Monitor clinically. * Palliative care will follow this patient throughout her hospitalization to establish trust, assist with symptom management, assist with locating appropriate healthcare proxy decision-maker and clarification of medical treatment goals
--- NOTE | 2018-07-08 16:38 | P.PNIM ---
Subjective Interval history: PATIENT AWAITS SAFE PLACEMENT NEEDS PT AND OT DOES NOT WANT FURTHER SURGERIES WILL NEED SNF UNABLE TO CARE FOR HERSELF DW PT AND RN AND CM PT AND OT AM LABS Physical Exam Vital signs: Vital Signs 07/07/18 20:00 07/08/18 00:00 07/08/18 04:00 Temperature 98.2 F 98.1 F 98.1 F Pulse Rate 92 H 84 80 Respiratory Rate 18 15 16 Blood Pressure 107/58 L 125/62 123/67 Pulse Oximetry 96 96 95 07/08/18 08:00 07/08/18 14:30 Temperature 98.0 F 98.4 F Pulse Rate 81 85 Respiratory Rate 18 18 Blood Pressure 123/59 L 123/68 Pulse Oximetry 96 96 Intake & Output 07/07/18 07/08/18 07/08/18 18:59 06:59 18:59 Intake Total 1000 / 1000 1000 / 1000 1000 / 1000 Output Total 2 / 2 Balance 999 / 999 998 / 998 1000 / 1000 Weight 48.6 kg Intake: IV 1000 / 1000 1000 / 1000 1000 / 1000 NS + KCl 20 mEq Inj 1,000 ML @ 1000 / 1000 1000 / 1000 1000 / 1000 100 mls/hr IV.CONT .Q10H [facility] Rx #:[id number] Output: Urine Other: Date of Last Bowel Movement 07/05/18 07/05/18 Narrative: GENERAL: NAD, A&Ox3 HEAD: Normocephalic. NECK: Supple, trachea midline. No lymphadenopathy. EYES: No scleral icterus. No injection or drainage. CARDIOVASCULAR: Regular rate and rhythm without murmurs, gallops, or rubs. RESPIRATORY: Breath sounds equal bilaterally. No accessory muscle use. GASTROINTESTINAL: Abdomen soft, non-tender, nondistended. MUSCULOSKELETAL: No cyanosis, or edema. GENERALIZED WEAKNESS SKIN: Warm and dry. NEURO: No focal neurological deficits. Results - Labs CBC & Chem 7: 07/08/18 08:04 07/08/18 08:04 Laboratory Results - last 24 hr 07/08/18 07/08/18 08:04 08:04 WBC 9.7 RBC 3.28 L Hgb 11.5 L Hct 33.7 L MCV 102.5 H MCH 35.2 H MCHC 34.3 RDW 13.4 Plt Count 592 H MPV 8.0 Sodium 141 Potassium 3.6 Chloride 105 Carbon Dioxide 27.4 Anion Gap 9 BUN 3 L Creatinine 0.42 L Estimated GFR Greater than 89 Random Glucose 98 Calcium 8.5 - Imaging Chest X-Ray 06/29/18 21:20 CONCLUSION: Right lower lung atelectasis or consolidation. Chronic calcification seen throughout the mid and upper lungs being more prominent on the left. Chest X-Ray 07/06/18 00:00 CONCLUSION: Right lung base infiltrate and left lung base consolidation not present previously and questionable tiny bilateral pleural effusions. - Procedures NONE Assessment and Plan - Assessment (1) Delirium tremens Code(s): F10.231 - Alcohol dependence with withdrawal delirium Status: Acute (2) Pneumonia Code(s): J18.9 - Pneumonia, unspecified organism Status: Acute (3) COPD (chronic obstructive pulmonary disease) Code(s): J44.9 - Chronic obstructive pulmonary disease, unspecified Status: Acute - Plan 68-year-old female admitted secondary to pneumonia and severe sepsis, now with delirium tremens Severe Sepsis, bacteremia Following cultures, resolving 2D echocardiogram did not demonstrate vegetations, ejection fraction 65-70% Continuing p.o. Levaquin-COMPLETED Community-acquired pneumonia, COPD Continue p.o. Levaquin, Symbicort, duo nebs, oxygen Chest x-ray suspicious for pneumonia of right lobe Patient remains afebrile, following CBC for leukocyte trend COMPLETED ANTIBIOTICS Alcoholism , delirium tremens Continue CIWA protocol with Ativan Continue seizure precautions Currently stable no issues Metabolic encephalopathy Likely related to delirium tremens Soft restraints removed yesterday Alert and oriented 3 Nicotine dependence Nicotine patch Hypokalemia Replace and monitor as needed DVT prophylaxis SCDs NEEDS SAFE PLACEMENT DW RN AND PT AND CM AND PHYSICAL THERAPY Code Status: DNR Discussed Condition With: RN AND CM AND PT Discharge Planning: NEEDS SAFE PLACEMENT (2) Pneumonia Qualifiers: Pneumonia type: due to unspecified organism Laterality: right Lung location : lower lobe of lung Qualified Code(s): J18.1 - Lobar pneumonia, unspecified organism
[2018-07-08] MEDS: Folic Acid 1 MG Tablet PO SCH (18:38)
[2018-07-08] MEDS: levoFLOXacin 750 MG Tablet PO SCH (21:24)
[2018-07-09] MEDS: LORazepam 1 MG Tablet PO PRN ×4 (00:38→21:29)
[2018-07-09 07:28] LABS: Baso # (Auto) 0.1 th/mm3 (0.0-0.2); Baso % (Auto) 0.9 % (0.0-2.0); Eos # (Auto) 0.4 th/mm3 (0.0-0.4); Eos % (Auto) 4.2 % (0.0-4.0); Hematocrit 32.2 % (35.0-46.0); Hemoglobin 10.8 gm/dL (11.6-15.3); Lymph # (Auto) 2.5 th/mm3 (1.0-4.8); Lymph % (Auto) 24.7 % (9.0-44.0); Mean Corpuscular HGB Conc 33.5 % (32.0-36.0); Mean Corpuscular Volume 104.5 fL (80.0-100.0); Mean Platelet Volume 8.1 fL (7.0-11.0); Mono % (Auto) 10.1 % (0.0-8.0); Neut # (Auto) 6.1 th/mm3 (1.8-7.7); Neut % (Auto) 60.1 % (16.0-70.0); Platelet Count 587 th/mm3 (150-450); Red Blood Count 3.08 mil/mm3 (4.00-5.30); Red Cell Distribution Width 13.4 % (11.6-17.2); White Blood Count 10.2 th/mm3 (4.0-11.0)
[2018-07-09 08:00] LABS: Anion Gap 9 meq/L (5-15); Aspartate Aminotransferase 22 U/L (15-37); Blood Urea Nitrogen 3 mg/dL (7-18); Calcium 8.6 mg/dL (8.5-10.1); Carbon Dioxide 24.7 meq/L (21.0-32.0); Chloride 105 meq/L (98-107); Glomerular Filtration Rate Greater Than 89 mL/min (>89); Glucose,Random 88 mg/dL (74-106); Magnesium 1.8 mg/dL (1.5-2.5); Potassium 3.8 meq/L (3.5-5.1); Sodium 139 meq/L (136-145)
[2018-07-09 08:11] LABS: Alanine Aminotransferase 16 U/L (10-53); Alkaline Phosphatase 115 U/L (45-117); Free T4 (Free Thyroxine) 0.41 ng/dL (0.76-1.46); Phosphorus 3.3 mg/dL (2.5-4.9); Total Protein 6.3 g/dL (6.4-8.2)
[2018-07-09] MEDS: Folic Acid 1 MG Tablet PO SCH (08:21)
[2018-07-09] MEDS: Tobramycin 0.3% Opth Drops 5 ML Bottle LEFT EYE SCH ×4 (08:23→20:29)
--- NOTE | 2018-07-09 11:14 | OTSOAPIP ---
TIME SESSION COMPLETED: 1105 RECEIVED OCC[address]ATIONAL THERAPY ORDERS FROM DR. WHALEN. UPON ARRIVAL AND INTRODUCTION OF THERAPIST, PATIENT IMMEDIATELY STATED I DONT WANT THERAPY PATIENT STATED, MIGUEL BEEN LIKE THIS FOR 2 YEARS. MY LEG IS THE WAY IT IS, IT WOULDNT GET ANY BETTER. ALL THE THERAPY IN THE WORLD WONT MAKE A DIFFERENCE. ATTEMPTED TO EXPLAIN ROLE OF OCCUPATIONAL THERAPY, HOWEVER PATIENT REMAINED ADAMANT SHE DID NOT WANT TO DO EVALUATION OR HAVE ANY THERAPY SERVICES. I DONT WANT ANY OF IT. THEREFORE, THERAPIST WILL RESPECT PATIENTS WISHES AND OT WILL SIGN OFF. IT SHOULD BE NOTED PATIENT IS KNOWN TO THIS THERAPIST AND HAS A SIGNIFICANT HISTORY OF DECLINING SERVICES FROM OT IN THE PAST (2016). Therapist: Bruna Padron, OTR/L Signature on file
--- NOTE | 2018-07-09 13:47 | P.PNPAL ---
[employer] results obtained on Ms. Kruse. Possible relative, Brian Escobedo (left message requesting call back) and [phone] (number rings then rings disconnected). Additional social media and google searches did not obtain additional information. Awaiting call back from potential match. Ms. Kruse has indicated she does not have any family and does not have any friends should would trust to make medical decisions if she were unable to make her own. Continues to refuse to complete living will or have discussions regarding goals of medical treatment. [employer] has been completed in an attempt to identify a health care proxy should she become incapacitated. Information provided by [employer]/google search (see above). Should Brian Escobedo not be a relative, not wish to participate, or not return call(s), social work advantage may be needed should Ms. Kruse become incapacitated. Palliative care will continue to follow along throughout hospitalization.
--- NOTE | 2018-07-09 15:45 | P.PNIM ---
Subjective Interval history: 9-5PATIENT AWAITS SAFE PLACEMENT NEEDS PT AND OT DOES NOT WANT FURTHER SURGERIES WILL NEED SNF UNABLE TO CARE FOR HERSELF DW PT AND RN AND CM PT AND OT AM LABS 9-6 DOES NOT WANT TO GO TO SNF AT THIS TIME STATES SHE LIKES LIVING ON THE STREETS HAS WHEELCHAIR NOT VERY MOBILE AT THIS TIME YET COULD USE SNF VS REHAB Physical Exam Vital signs: Vital Signs 07/08/18 20:00 07/09/18 00:00 07/09/18 04:00 Temperature 97.9 F 98.2 F 98.2 F Pulse Rate 87 88 87 Respiratory Rate 18 18 Blood Pressure 113/64 114/64 114/64 Pulse Oximetry 94 L 95 95 Intake & Output 07/08/18 07/09/18 07/09/18 18:59 06:59 18:59 Intake Total 1000 / 1000 1000 / 1000 1000 / 1000 Balance 1000 / 1000 1000 / 1000 1000 / 1000 Weight 68.1 kg Intake: IV 1000 / 1000 1000 / 1000 1000 / 1000 NS + KCl 20 mEq Inj 1,000 ML @ 1000 / 1000 1000 / 1000 1000 / 1000 100 mls/hr IV.CONT .Q10H [facility] Rx #:[id number] Other: Date of Last Bowel Movement 07/05/18 07/05/18 Narrative: GENERAL: NAD, A&Ox3 HEAD: Normocephalic. NECK: Supple, trachea midline. No lymphadenopathy. EYES: No scleral icterus. No injection or drainage. CARDIOVASCULAR: Regular rate and rhythm without murmurs, gallops, or rubs. RESPIRATORY: Breath sounds equal bilaterally. No accessory muscle use. GASTROINTESTINAL: Abdomen soft, non-tender, nondistended. MUSCULOSKELETAL: No cyanosis, or edema. GENERALIZED WEAKNESS SKIN: Warm and dry. NEURO: No focal neurological deficits. Results - Labs CBC & Chem 7: 07/09/18 06:05 07/09/18 06:05 Laboratory Results - last 24 hr 07/09/18 07/09/18 06:05 06:05 WBC 10.2 RBC 3.08 L Hgb 10.8 L Hct 32.2 L MCV 104.5 H MCH 35.0 H MCHC 33.5 RDW 13.4 Plt Count 587 H MPV 8.1 Neut % (Auto) 60.1 Lymph % (Auto) 24.7 Door % (Auto) 10.1 H Eos % (Auto) 4.2 H Baso % (Auto) 0.9 Neut # (Auto) 6.1 Lymph # (Auto) 2.5 Door # (Auto) 1.0 H Eos # (Auto) 0.4 Baso # (Auto) 0.1 WBC Differential . Differential Comment Auto diff final Sodium 139 Potassium 3.8 Chloride 105 Carbon Dioxide 24.7 Anion Gap 9 BUN 3 L Creatinine 0.42 L Estimated GFR Greater than 89 Random Glucose 88 Calcium 8.6 Phosphorus 3.3 Magnesium 1.8 Total Bilirubin 0.2 AST 22 ALT 16 Alkaline Phosphatase 115 Total Protein 6.3 L D Albumin 2.0 L TSH Greater than 100.000 H Free T4 0.41 L - Imaging Chest X-Ray 06/29/18 21:20 CONCLUSION: Right lower lung atelectasis or consolidation. Chronic calcification seen throughout the mid and upper lungs being more prominent on the left. Chest X-Ray 07/06/18 00:00 CONCLUSION: Right lung base infiltrate and left lung base consolidation not present previously and questionable tiny bilateral pleural effusions. - Procedures NONE Assessment and Plan - Assessment (1) Delirium tremens Code(s): F10.231 - Alcohol dependence with withdrawal delirium Status: Acute (2) Pneumonia Code(s): J18.9 - Pneumonia, unspecified organism Status: Acute (3) COPD (chronic obstructive pulmonary disease) Code(s): J44.9 - Chronic obstructive pulmonary disease, unspecified Status: Acute - Plan 68-year-old female admitted secondary to pneumonia and severe sepsis, now with delirium tremens Severe Sepsis, bacteremia Following cultures, resolving 2D echocardiogram did not demonstrate vegetations, ejection fraction 65-70% Continuing p.o. Levaquin-COMPLETED Community-acquired pneumonia, COPD Continue p.o. Levaquin, Symbicort, duo nebs, oxygen Chest x-ray suspicious for pneumonia of right lobe Patient remains afebrile, following CBC for leukocyte trend COMPLETED ANTIBIOTICS Alcoholism , delirium tremens Continue CIWA protocol with Ativan Continue seizure precautions Currently stable no issues Metabolic encephalopathy Likely related to delirium tremens Soft restraints removed yesterday Alert and oriented 3 Nicotine dependence Nicotine patch Hypokalemia Replace and monitor as needed DVT prophylaxis SCDs NEEDS SAFE PLACEMENT DW RN AND PT AND CM AND PHYSICAL THERAPY Code Status: DNR Discussed Condition With: RN AND PT AND CM Discharge Planning: NEEDS SAFE PLACEMENT (2) Pneumonia Qualifiers: Pneumonia type: due to unspecified organism Laterality: right Lung location : lower lobe of lung Qualified Code(s): J18.1 - Lobar pneumonia, unspecified organism
[2018-07-09 15:54] LABS: Hemoglobin A1c 5.3 % (4.3-6.0)
[2018-07-09] MEDS ORDERED: Levothyroxine 50 MCG Tablet PO ONE (16:10)
--- NOTE | 2018-07-09 17:46 | P.PNPAL ---
Reason for Visit Reason for visit: a. To assist with evaluation and management of symptoms including: pain, dyspnea, constipation b. To assist medical decision maker(s) with: better understanding of current medical conditions; weighing benefits/burdens of medical treatment options; making medical treatment decisions. Subjective Subjective/Interval History: Patient is a 68 year old homeless, female who was admitted to [place] ED on 06/29 with pneumonia, leukocytosis, hypokalemia and EtOH intoxication. Follow up for symptom management of pain, dyspnea, constipation Patient is alert and oriented. She is able to answer questions and follow commands. She denies dyspnea and states she no longer has a cough. She c/o ongoing, chronic generalized pain but mostly in her back that she rates 8-9 out of 10. She describes pain as aching. Notes indicate the patient previously had some type of back surgery. Back refusing work up or imaging of her back. Patient would benefit from PT and OT, but she is refusing rehab. She states she gets around in her wheelchair. She tells me she plans to return to the street and start drinking again. Afebrile; hemodynamically. Leukocytosis has resolved. Initial blood cultures on admission with Coag Negative Staph; repeat blood cultures on 07/01/2018 were negative. Echocardiogram showed no evidence of vegetation; the left ventricular systolic function is hyperdynamic with an estimated EF of 65-70 %. Follow-up chest x-ray on 07/06/2018 showed right lung base infiltrate and left lung base consolidation not present previously and questionable tiny bilateral pleural effusions. Patient completed course of IV antibiotics. PRN Duonebs and supplemental oxygen as needed. LBM: 07/09/18. Senokot, lactulose, dulcolax suppository and milk of magnesia are available PRN for constipation. Objective Vital Signs: Vital Signs 07/08/18 20:00 07/09/18 00:00 07/09/18 04:00 Temperature 97.9 F 98.2 F 98.2 F Pulse Rate 87 88 87 Respiratory Rate 18 18 18 Blood Pressure 113/64 114/64 114/64 Pulse Oximetry 94 L 95 95 Intake & Output 07/08/18 07/09/18 07/09/18 18:59 06:59 18:59 Intake Total 1000 / 1000 1000 / 1000 1000 / 1000 Balance 1000 / 1000 1000 / 1000 1000 / 1000 Weight 68.1 kg Intake: IV 999 / 999 999 / 1000 999 / 999 NS + KCl 20 mEq Inj 1,000 ML @ 1000 / 1000 1000 / 1000 1000 / 999 100 mls/hr IV.CONT .Q10H [facility] Rx #:[id number] Other: Date of Last Bowel Movement 07/05/18 07/05/18 Physical Exam: CONSTITUTIONAL/GENERAL: This is an disheveled appearing female in no acute distress. TUBES/LINES/DRAINS: PIV SKIN: No rashes or lesions. Ecchymoses on upper extremities. No wounds seen anteriorly. Skin temperature appropriate. Not diaphoretic. HEAD: Atraumatic. Normocephalic. EYES: Pupils equal and round and reactive. Scleral icterus. No injection or drainage. Fundi not examined. ENT: Hearing grossly normal. Nose without bleeding or purulent drainage. Throat without visible erythema, exudates, masses, or lesions. Poor dentation NECK: Trachea midline. Supple, nontender. No palpable thyroid enlargement or nodularity. CARDIOVASCULAR: Regular rate and rhythm without murmurs, gallops, or rubs. No JVD. Peripheral pulses symmetric. RESPIRATORY/CHEST: Symmetric, unlabored respirations. Breath sounds equal bilaterally. No wheezes, rales, or rhonchi. No use of accessory muscles GASTROINTESTINAL: Abdomen soft, non-tender, nondistended. Bowel sounds present. GENITOURINARY: Without palpable bladder distension. MUSCULOSKELETAL: Extremities without clubbing, cyanosis, or edema. No obvious deformities. LYMPHATICS: No palpable cervical or supraclavicular adenopathy. NEUROLOGICAL: Oriented to person, place and situation. Answers questions and follows commands. Able to make her needs known. Moves extremities x 4 PSYCHIATRIC: No obvious anxiety/depression. No apparent hallucinations or other psychotic thought process. Diagnostic Tests Laboratory: Laboratory Results - last 72 hr 07/08/18 07/08/18 07/09/18 08:04 08:04 06:05 WBC 9.7 10.2 RBC 3.28 L 3.08 L Hgb 11.5 L 10.8 L Hct 33.7 L 32.2 L MCV 102.5 H 104.5 H MCH 35.2 H 35.0 H MCHC 34.3 33.5 RDW 13.4 13.4 Plt Count 592 H 587 H MPV 8.0 8.1 Neut % (Auto) 60.1 Lymph % (Auto) 24.7 Wilkes % (Auto) 10.1 H Eos % (Auto) 4.2 H Baso % (Auto) 0.9 Neut # (Auto) 6.1 Lymph # (Auto) 2.5 Wilkes # (Auto) 1.0 H Eos # (Auto) 0.4 Baso # (Auto) 0.1 WBC Differential . Differential Comment Auto diff final Sodium 141 Potassium 3.6 Chloride 105 Carbon Dioxide 27.4 Anion Gap 9 BUN 3 L Creatinine 0.42 L Estimated GFR Greater than 89 Random Glucose 98 Hemoglobin A1c Calcium 8.5 Phosphorus Magnesium Total Bilirubin AST ALT Alkaline Phosphatase Total Protein Albumin TSH Free T4 07/09/18 07/09/18 06:05 06:05 WBC RBC Hgb Hct MCV MCH MCHC RDW Plt Count MPV Neut % (Auto) Lymph % (Auto) Wilkes % (Auto) Eos % (Auto) Baso % (Auto) Neut # (Auto) Lymph # (Auto) Wilkes # (Auto) Eos # (Auto) Baso # (Auto) WBC Differential Differential Comment Sodium 139 Potassium 3.8 Chloride 105 Carbon Dioxide 24.7 Anion Gap 9 BUN 3 L Creatinine 0.42 L Estimated GFR Greater than 89 Random Glucose 88 Hemoglobin A1c 5.3 Calcium 8.6 Phosphorus 3.3 Magnesium 1.8 Total Bilirubin 0.2 AST 22 ALT 16 Alkaline Phosphatase 115 Total Protein 6.3 L D Albumin 2.0 L TSH Greater than 100.000 H Free T4 0.41 L Result Diagrams: 07/09/18 06:05 07/09/18 06:05 Microbiology: Microbiology 07/01/18 18:30 Blood - Peripheral Aerobic Blood Culture - Final No growth in 5 days 07/01/18 18:30 Blood - Peripheral Anaerobic Blood Culture - Final No growth in 5 days 07/01/18 18:25 Blood - Peripheral Aerobic Blood Culture - Final No growth in 5 days 07/01/18 18:25 Blood - Peripheral Anaerobic Blood Culture - Final No growth in 5 days 06/30/18 15:32 Blood - Peripheral Aerobic Blood Culture - Final Staphylococcus coag negative 06/30/18 15:32 Blood - Peripheral Anaerobic Blood Culture - Final Staphylococcus coag negative 06/30/18 01:05 Blood - Peripheral Aerobic Blood Culture - Final Staphylococcus coag negative 06/30/18 01:05 Blood - Peripheral Anaerobic Blood Culture - Final Staphylococcus coag negative 06/30/18 03:11 Urine - Clean Catch Urine Streptococcus pneumoniae Antigen ( M - Final Presumptive negative for streptococcus pneumoniae antigen, suggesting no current or recent infection. Infection due to Streptococcus pneumoniae cannot be ruled out since the antigen present in the sample may be below the detection limit of the test. 06/30/18 03:11 Urine - Clean Catch Urine Legionella Antigen - Final Presumptive negative for Legionella pneumophila serogroup 1 antigen in urine, suggesting no recent or recurrent infection. Infection due to Legionella cannot be ruled out since other serogroups and species may cause disease, antigen may not be present in urine in early infection, and the level of antigen present in the urine may be below the detection limit of the test. Imaging: Chest X-Ray 07/06/18 00:00 CONCLUSION: Right lung base infiltrate and left lung base consolidation not present previously and questionable tiny bilateral pleural effusions. Assessment and Plan - Disease Oriented Problem List (1) COPD (chronic obstructive pulmonary disease) (2) Acute metabolic encephalopathy (3) Sepsis (4) Coag negative Staphylococcus bacteremia (5) Conjunctivitis (6) Leukocytosis (7) Alcohol abuse with intoxication (8) History of tuberculosis - Symptom Scale (1) SOB (shortness of breath) Comment: = Patient denies SOB on exam. = History of COPD and previous tuberculosis without recurrence = Follow-up chest x-ray on 07/06/2018 showed right lung base infiltrate and left lung base consolidation not present previously and questionable tiny bilateral pleural effusions. = Completed course of IV antibiotics. PRN DuoNeb's and supplemental oxygen available. (2) Pain 0-10 Scale: 9 Comment: = Complaining of generalized aching pain over her entire body. History of chronic back pain. Pain is rated 9/10. = Pain is being managed with [place] 5/325 is available every 6 hours PRN for pain rated 1-10. (3) Constipation Comment: = Educated patient of risk for constipation secondary to narcotics and reduced mobility. = LBM: 07/09/18. =Senokot, lactulose, dulcolax suppository and milk of magnesia are available PRN for constipation. Pertinent Non-Medical Issues: Psychosocial: Patient is originally from [place], [place]. Patient left [place] when she was 19 years old. She states she has no family left and has no friends/contacts that she would want notified of her hospitalization Spiritual: Patient denies nondenominational affiliation Legal: Patient has regained capacity for medical decision-making. She states she does not have any family or friend to act in the role of healthcare proxy/ healthcare surrogate decision maker. [employer] report previously requested on ; awaiting results. Ethical issues impacting care: No known ethical issues impacting care. Important Contacts: No known family members, friends or contacts Prognosis: Patient is a encephalopathic, disheveled, homeless 68-year-old female with a history of COPD, previous TB and EtOH abuse who currently hospitalized for medical management of sepsis, possible EtOH withdrawal. Patient is acutely encephalopathic and lacks insight related to her medical conditions. It is unclear if patient will regain insight; she is at risk for compensation and functional decline. Code Status: No Code DNR Plan: * NO CODE- DNR/DNI * Decision making: Patient has regained capacity for medical decision making. She states she does not have anyone act in the role of HCP/HCS decision maker. [employer] report was previously requested on ; results pending. * Discussed the process of cardiopulmonary resuscitation. Patient states she would not want to be placed on artificial life support, but would want to peacefully and naturally without aggressive interventions. Community DNR was signed 07/06/18. * Goals remain aggressive up to the point of cardiopulmonary resuscitation. * Symptom management: = Dyspnea: Patient presented with complaints of cough and dyspnea. She has a history of TB in the past (reportedly treated) and COPD. Follow-up chest x-ray on 07/06/2018 showed right lung base infiltrate and left lung base consolidation not present previously and questionable tiny bilateral pleural effusions. IV antibiotics completed 07/09/2018. PRN duo nebs and supplemental oxygen are available. = Constipation: Educated patient of risk for constipation secondary to narcotics and reduced mobility. LBM: 07/09/18. Senokot, lactulose, dulcolax suppository and milk of magnesia are available PRN for constipation. = Pain: Patient complains generalized aching pain over her entire body. History of chronic back pain. pain is rated 9/10. Pain is being managed with [place] 5/325 is available every 6 hours PRN for pain rated 1-10. Monitor clinically. * Palliative care will follow this patient throughout her hospitalization to establish trust, assist with symptom management, assist with locating appropriate healthcare proxy decision-maker and clarification of medical treatment goals Attestation Attestation: To help prompt me to consider important information that might be impacting today's encounter and assessment, information from prior notes written by myself or my colleagues may have been "brought forward" into today's note. My signature on this note, however, is an attestation that I personally performed the exam, history, and/or decision-making noted today, and, unless otherwise indicated, the interactions with patient, family, and staff as well as the review of records all occurred today. I also attest that the listed assessment and stated plan reflect my best clinical judgment today based on the combination of historical information, prior notes, and today's exam/ interactions. When time spent is documented, it refers only to time spent today by the signer, or if indicated, combined time spent today by collaborating physician/nurse practitioner.
[2018-07-09] MEDS: levoFLOXacin 750 MG Tablet PO SCH (21:23)
[2018-07-10] MEDS: LORazepam 1 MG Tablet PO PRN ×4 (03:32→21:35)
[2018-07-10] MEDS: Levothyroxine 50 MCG Tablet PO SCH (06:37)
[2018-07-10] MEDS: Folic Acid 1 MG Tablet PO SCH (09:12)
[2018-07-10] MEDS: Tobramycin 0.3% Opth Drops 5 ML Bottle LEFT EYE SCH ×4 (09:12→21:37)
--- NOTE | 2018-07-10 11:01 | P.PNIM ---
Subjective Interval history: 9- PATIENT AWAITS SAFE PLACEMENT NEEDS PT AND OT DOES NOT WANT FURTHER SURGERIES WILL NEED SNF UNABLE TO CARE FOR HERSELF DW PT AND RN AND CM PT AND OT AM LABS 9-6 DOES NOT WANT TO GO TO SNF AT THIS TIME STATES SHE [place]IVING ON THE [place] HAS WHEELCHAIR NOT VERY MOBILE AT THIS TIME YET COULD USE SNF VS REHAB 9- STATES SHE IS NOT MOBILE YET STATES SHE LIKES LIVING ON THE STREETS STILL NOT VERY [place]BILE REFUSING SNF AT THIS TIME NOT A SAFE DC BACK TO THE STREETS ---IF POSSIBLE NEEDS OTHER [facility] ETC Physical Exam Vital signs: Vital Signs 07/09/18 20:00 07/09/18 23:00 07/10/18 00:00 Temperature 98.1 F 98.1 F Pulse Rate 76 74 Respiratory Rate 15 15 17 Blood Pressure 109/62 116/83 Pulse Oximetry 97 97 07/10/18 03:47 07/10/18 08:00 Temperature 98 F 98.3 F Pulse Rate 87 81 Respiratory Rate 19 17 Blood Pressure 134/72 132/64 Pulse Oximetry 98 96 Intake & Output 07/09/18 07/10/18 07/10/18 18:59 06:59 18:59 Intake Total 1600 / 1600 2861 / 2861 1000 / 1000 Balance 1600 / 1600 2861 / 2861 1000 / 1000 Weight 49.2 kg Intake: IV 1000 / 1000 1000 / 1000 1000 / 1000 NS + KCl 20 mEq Inj 1,000 ML @ 1000 / 1000 1000 / 1000 1000 / 1000 100 mls/hr IV.CONT .Q10H [facility] Rx #:[id number] Oral 600 / 600 661 / 661 Other 1200 / 1200 Other: Other Intake Source Saline Solution # Incontinent Voids 5 # Urine Diapers 13 Date of Last Bowel Movement 07/09/18 # Bowel Movements 1 1 Narrative: GENERAL: NAD, A&Ox3 HEAD: Normocephalic. NECK: Supple, trachea midline. No lymphadenopathy. EYES: No scleral icterus. No injection or drainage. CARDIOVASCULAR: Regular rate and rhythm without murmurs, gallops, or rubs. RESPIRATORY: Breath sounds equal bilaterally. No accessory muscle use. GASTROINTESTINAL: Abdomen soft, non-tender, nondistended. MUSCULOSKELETAL: No cyanosis, or edema. GENERALIZED WEAKNESS SKIN: Warm and dry. NEURO: No focal neurological deficits. Results - Labs CBC & Chem 7: 07/09/18 06:05 07/09/18 06:05 Laboratory Results - last 24 hr 07/09/18 06:05 Hemoglobin A1c 5.3 - Imaging ITS Impressions Chest X-Ray 07/06/18 00:00 CONCLUSION: Right lung base infiltrate and left lung base consolidation not present previously and questionable tiny bilateral pleural effusions. - Procedures NONE Assessment and Plan - Assessment (1) Delirium tremens Code(s): F10.231 - Alcohol dependence with withdrawal delirium Status: Acute (2) Pneumonia Code(s): J18.9 - Pneumonia, unspecified organism Status: Acute (3) COPD (chronic obstructive pulmonary disease) Code(s): J44.9 - Chronic obstructive pulmonary disease, unspecified Status: Acute - Plan 68-year-old female admitted secondary to pneumonia and severe sepsis, now with delirium tremens Severe Sepsis, bacteremia Following cultures, resolving 2D echocardiogram did not demonstrate vegetations, ejection fraction 65-70% Continuing p.o. Levaquin-COMPLETED Community-acquired pneumonia, COPD Continue p.o. Levaquin, Symbicort, duo nebs, oxygen Chest x-ray suspicious for pneumonia of right lobe Patient remains afebrile, following CBC for leukocyte trend COMPLETED ANTIBIOTICS Alcoholism , delirium tremens Continue CIWA protocol with Ativan Continue seizure precautions Currently stable no issues Metabolic encephalopathy Likely related to delirium tremens Soft restraints removed yesterday Alert and oriented 3 Nicotine dependence Nicotine patch VERY HYPOTHYROID NEEDS REPLACEMENT WILL START 50MCG PO DAILY Hypokalemia Replace and monitor as needed DVT prophylaxis SCDs NEEDS SAFE PLACEMENT DW RN AND PT AND CM AND PHYSICAL THERAPY Code Status: DNR Discussed Condition With: RN AND PT AND CM Discharge Planning: NEEDS SAFE PLACEMENT (2) Pneumonia Qualifiers: Pneumonia type: due to unspecified organism Laterality: right Lung location : lower lobe of lung Qualified Code(s): J18.1 - Lobar pneumonia, unspecified organism
--- NOTE | 2018-07-10 12:36 | OTSOAPIP ---
TIME SESSION COMPLETED: 1426 07/10/18 FOLLOW-UP ATTEMPTED TO EVALUATE PATIENT, HOWEVER PATIENT STRONGLY CONTINUE TO REFUSED, STATING I DONT NEED THERAPY. PATIENT IS KNOWN TO CONSTANTLY REFUSE IN PREVIOUS ADMISSION. DR TILA WHALEN WAS INFORMED. PLAN: OCCUPATIONAL THERAPY SIGNING OFF Therapist: WILFREDO Pichardo/Adeline Signature on file
--- NOTE | 2018-07-10 12:48 | P.PNPAL ---
Reason for Visit Reason for visit: a. To assist with evaluation and management of symptoms including: pain, dyspnea, constipation, debility b. To assist medical decision maker(s) with: better understanding of current medical conditions; weighing benefits/burdens of medical treatment options; making medical treatment decisions. Subjective Subjective/Interval History: Patient is a 68 year old homeless, female who was admitted to [facility] on 06/29 with pneumonia, leukocytosis, hypokalemia and EtOH intoxication. Follow up for symptom management of pain, dyspnea, constipation Patient is alert and oriented. She is able to answer questions and follow commands. She denies dyspnea and states she no longer has a cough. She c/o ongoing, chronic generalized pain but mostly in her back that she rates 8 out of 10. She describes pain as aching. Notes indicate the patient previously had some type of back surgery; she refuses further diagnostic procedures. No recent lab work or imaging available. Initial blood cultures on admission with Coag Negative Staph; repeat blood cultures on 07/01/2018 were negative. Echocardiogram showed no evidence of vegetation; the left ventricular systolic function is hyperdynamic with an estimated EF of 65-70%. Follow-up chest x-ray on 07/06/2018 showed right lung base infiltrate and left lung base consolidation not present previously and questionable tiny bilateral pleural effusions. Patient completed course of IV antibiotics. PRN Duonebs and supplemental oxygen as needed. LBM: 07/09/18. Senokot, lactulose, dulcolax suppository and milk of magnesia are available PRN for constipation. Patient is debilitated. She states she is homeless but is able to get around around in her wheelchair. Would benefit from PT and OT, but she is refusing rehab. She wants to return to the community and continue drinking. Objective Vital Signs: Vital Signs 07/09/18 20:00 07/09/18 23:00 07/10/18 00:00 Temperature 98.1 F 98.1 F Pulse Rate 76 74 Respiratory Rate 15 15 17 Blood Pressure 109/62 116/83 Pulse Oximetry 97 97 07/10/18 03:47 07/10/18 08:00 Temperature 98 F 98.3 F Pulse Rate 87 81 Respiratory Rate 19 17 Blood Pressure 134/72 132/64 Pulse Oximetry 98 96 Intake & Output 07/09/18 07/10/18 07/10/18 18:59 06:59 18:59 Intake Total 1600 / 1600 2861 / 2861 1000 / 1000 Balance 1600 / 1600 2861 / 2861 1000 / 1000 Weight 49.2 kg Intake: IV 1000 / 1000 1000 / 1000 1000 / 1000 NS + KCl 20 mEq Inj 1,000 ML @ 1000 / 1000 1000 / 1000 1000 / 1000 100 mls/hr IV.CONT .Q10H [facility] Rx #:[id number] Oral 600 / 600 661 / 661 Other 1200 / 1200 Other: Other Intake Source Saline Solution # Incontinent Voids 5 # Urine Diapers 13 Date of Last Bowel Movement 07/09/18 # Bowel Movements 1 1 Physical Exam: CONSTITUTIONAL/GENERAL: This is an disheveled appearing female in no acute distress. TUBES/LINES/DRAINS: PIV SKIN: No rashes or lesions. Skin temperature appropriate. Not diaphoretic. HEAD: Atraumatic. Normocephalic. EYES: Pupils equal and round and reactive. Scleral icterus. No injection or drainage. Fundi not examined. ENT: Hearing grossly normal. Nose without bleeding or purulent drainage. Poor dentation NECK: Trachea midline. Supple, nontender. No palpable thyroid enlargement or nodularity. CARDIOVASCULAR: Regular rate and rhythm without murmurs, gallops, or rubs. No JVD. Peripheral pulses symmetric. RESPIRATORY/CHEST: Symmetric, unlabored respirations. Breath sounds equal bilaterally. No wheezes, rales, or rhonchi. No use of accessory muscles GASTROINTESTINAL: Abdomen soft, non-tender, nondistended. Bowel sounds present. GENITOURINARY: Without palpable bladder distension. MUSCULOSKELETAL: Extremities without clubbing, cyanosis, or edema. No obvious deformities. LYMPHATICS: No palpable cervical or supraclavicular adenopathy. NEUROLOGICAL: Oriented to person, place and situation. Answers questions and follows commands. Able to make her needs known. Moves extremities x 4 PSYCHIATRIC: No obvious anxiety/depression. No apparent hallucinations or other psychotic thought process. Diagnostic Tests Laboratory: Laboratory Results - last 72 hr 07/08/18 07/08/18 07/09/18 08:04 08:04 06:05 WBC 9.7 10.2 RBC 3.28 L 3.08 L Hgb 11.5 L 10.8 L Hct 33.7 L 32.2 L MCV 102.5 H 104.5 H MCH 35.2 H 35.0 H MCHC 34.3 33.5 RDW 13.4 13.4 Plt Count 592 H 587 H MPV 8.0 8.1 Neut % (Auto) 60.1 Lymph % (Auto) 24.7 Petroleum % (Auto) 10.1 H Eos % (Auto) 4.2 H Baso % (Auto) 0.9 Neut # (Auto) 6.1 Lymph # (Auto) 2.5 Petroleum # (Auto) 1.0 H Eos # (Auto) 0.4 Baso # (Auto) 0.1 WBC Differential . Differential Comment Auto diff final Sodium 141 Potassium 3.6 Chloride 105 Carbon Dioxide 27.4 Anion Gap 9 BUN 3 L Creatinine 0.42 L Estimated GFR Greater than 89 Random Glucose 98 Hemoglobin A1c Calcium 8.5 Phosphorus Magnesium Total Bilirubin AST ALT Alkaline Phosphatase Total Protein Albumin TSH Free T4 07/09/18 07/09/18 06:05 06:05 WBC RBC Hgb Hct MCV MCH MCHC RDW Plt Count MPV Neut % (Auto) Lymph % (Auto) Petroleum % (Auto) Eos % (Auto) Baso % (Auto) Neut # (Auto) Lymph # (Auto) Petroleum # (Auto) Eos # (Auto) Baso # (Auto) WBC Differential Differential Comment Sodium 139 Potassium 3.8 Chloride 105 Carbon Dioxide 24.7 Anion Gap 9 BUN 3 L Creatinine 0.42 L Estimated GFR Greater than 89 Random Glucose 88 Hemoglobin A1c 5.3 Calcium 8.6 Phosphorus 3.3 Magnesium 1.8 Total Bilirubin 0.2 AST 22 ALT 16 Alkaline Phosphatase 115 Total Protein 6.3 L D Albumin 2.0 L TSH Greater than 100.000 H Free T4 0.41 L Result Diagrams: 07/09/18 06:05 07/09/18 06:05 Microbiology: Microbiology 07/01/18 18:30 Blood - Peripheral Aerobic Blood Culture - Final No growth in 5 days 07/01/18 18:30 Blood - Peripheral Anaerobic Blood Culture - Final No growth in 5 days 07/01/18 18:25 Blood - Peripheral Aerobic Blood Culture - Final No growth in 5 days 07/01/18 18:25 Blood - Peripheral Anaerobic Blood Culture - Final No growth in 5 days 06/30/18 15:32 Blood - Peripheral Aerobic Blood Culture - Final Staphylococcus coag negative 06/30/18 15:32 Blood - Peripheral Anaerobic Blood Culture - Final Staphylococcus coag negative 06/30/18 01:05 Blood - Peripheral Aerobic Blood Culture - Final Staphylococcus coag negative 06/30/18 01:05 Blood - Peripheral Anaerobic Blood Culture - Final Staphylococcus coag negative 06/30/18 03:11 Urine - Clean Catch Urine Streptococcus pneumoniae Antigen ( M - Final Presumptive negative for streptococcus pneumoniae antigen, suggesting no current or recent infection. Infection due to Streptococcus pneumoniae cannot be ruled out since the antigen present in the sample may be below the detection limit of the test. 06/30/18 03:11 Urine - Clean Catch Urine Legionella Antigen - Final Presumptive negative for Legionella pneumophila serogroup 1 antigen in urine, suggesting no recent or recurrent infection. Infection due to Legionella cannot be ruled out since other serogroups and species may cause disease, antigen may not be present in urine in early infection, and the level of antigen present in the urine may be below the detection limit of the test. Imaging: Chest X-Ray 07/06/18 00:00 CONCLUSION: Right lung base infiltrate and left lung base consolidation not present previously and questionable tiny bilateral pleural effusions. Assessment and Plan - Disease Oriented Problem List (1) COPD (chronic obstructive pulmonary disease) (2) Acute metabolic encephalopathy (3) Sepsis (4) Coag negative Staphylococcus bacteremia (5) Conjunctivitis (6) Leukocytosis (7) Alcohol abuse with intoxication (8) History of tuberculosis - Symptom Scale (1) SOB (shortness of breath) Comment: = Patient denies SOB on exam. = History of COPD and previous tuberculosis without recurrence = Follow-up chest x-ray on 07/06/2018 showed right lung base infiltrate and left lung base consolidation not present previously and questionable tiny bilateral pleural effusions. = Completed course of IV antibiotics. PRN DuoNeb's and supplemental oxygen available. (2) Pain Comment: = Complaining of generalized aching pain over her entire body. History of chronic back pain. Pain is rated 9/10. = Pain is being managed with [place] 5/325 is available every 6 hours PRN for pain rated 1-10. (3) Constipation Comment: = Educated patient of risk for constipation secondary to narcotics and reduced mobility. = LBM: 07/09/18. =Senokot, lactulose, dulcolax suppository and milk of magnesia are available PRN for constipation. (4) Debility, unspecified 0-10 Scale: Unable to quantify Comment: Patient is homeless but is able to get around around in her wheelchair. Would benefit from PT and OT, but she is refusing rehab. She wants to return to the community and continue drinking. Pertinent Non-Medical Issues: Psychosocial: Patient is originally from [place], [place]. Patient left [place] when she was 19 years old. She states she has no family left and has no friends/contacts that she would want notified of her hospitalization Spiritual: Patient denies religion affiliation Legal: Patient has regained capacity for medical decision-making. She states she does not have any family or friend to act in the role of healthcare proxy/ healthcare surrogate decision maker. [employer] report previously requested on ; awaiting results. Ethical issues impacting care: No known ethical issues impacting care. Important Contacts: No known family members, friends or contacts Prognosis: Patient is a encephalopathic, disheveled, homeless 68-year-old female with a history of COPD, previous TB and EtOH abuse who currently hospitalized for medical management of sepsis, possible EtOH withdrawal. Patient is acutely encephalopathic and lacks insight related to her medical conditions. It is unclear if patient will regain insight; she is at risk for compensation and functional decline. Code Status: No Code DNR Plan: * NO CODE- DNR/DNI * Decision making: Patient has regained capacity for medical decision making. She states she does not have anyone act in the role of HCP/HCS decision maker. [employer] report was previously requested on ; results pending. * Discussed the process of cardiopulmonary resuscitation. Patient states she would not want to be placed on artificial life support, but would want to peacefully and naturally without aggressive interventions. Community DNR was signed 07/06/18. * Goals remain aggressive up to the point of cardiopulmonary resuscitation. * Discussed patient with Dr. Bosch and case management * Symptom management: = Dyspnea: Patient presented with complaints of cough and dyspnea. She has a history of TB in the past (reportedly treated) and COPD. Follow-up chest x-ray on 07/06/2018 showed right lung base infiltrate and left lung base consolidation not present previously and questionable tiny bilateral pleural effusions. IV antibiotics completed 07/09/2018. PRN duo nebs and supplemental oxygen are available. = Constipation: Educated patient of risk for constipation secondary to narcotics and reduced mobility. LBM: 07/09/18. Senokot, lactulose, dulcolax suppository and milk of magnesia are available PRN for constipation. = Pain: Patient complains generalized aching pain over her entire body. History of chronic back pain. pain is rated 9/10. Pain is being managed with [place] 5/325 is available every 6 hours PRN for pain rated 1-10. Monitor clinically. = Debility: Patient is debilitated. She states she is homeless but is able to get around around in her wheelchair. Would benefit from PT and OT, but she is refusing rehab. She wants to return to the community and continue drinking. * Palliative care will follow this patient throughout her hospitalization to establish trust, assist with symptom management, assist with locating appropriate healthcare proxy decision-maker and clarification of medical treatment goals Attestation Attestation: To help prompt me to consider important information that might be impacting today's encounter and assessment, information from prior notes written by myself or my colleagues may have been "brought forward" into today's note. My signature on this note, however, is an attestation that I personally performed the exam, history, and/or decision-making noted today, and, unless otherwise indicated, the interactions with patient, family, and staff as well as the review of records all occurred today. I also attest that the listed assessment and stated plan reflect my best clinical judgment today based on the combination of historical information, prior notes, and today's exam/ interactions. When time spent is documented, it refers only to time spent today by the signer, or if indicated, combined time spent today by collaborating physician/nurse practitioner.
[2018-07-11] MEDS: LORazepam 1 MG Tablet PO PRN ×3 (03:38→22:20)
[2018-07-11] MEDS: Levothyroxine 50 MCG Tablet PO SCH (05:22)
[2018-07-11] MEDS: Folic Acid 1 MG Tablet PO SCH (09:19)
[2018-07-11] MEDS: Tobramycin 0.3% Opth Drops 5 ML Bottle LEFT EYE SCH ×4 (09:31→22:25)
--- NOTE | 2018-07-11 15:39 | P.PNIM ---
Subjective Interval history: 9-5 PATIENT AWAITS SAFE PLACEMENT NEEDS PT AND OT DOES NOT WANT FURTHER SURGERIES WILL NEED SNF UNABLE TO CARE FOR HERSELF DW PT AND RN AND CM PT AND OT AM LABS 9-6 DOES NOT WANT TO GO TO SNF AT THIS TIME STATES [place]ING [place] HAS WHEELCHAIR NOT VERY MOBILE AT THIS TIME YET COULD USE SNF VS REHAB 9-7 STATES SHE IS NOT MOBILE YET STATES [place] LIVING ON THE ST[place] STILL NOT [place] REFUSING SNF AT THIS TIME NOT A SAFE DC BACK TO THE STREETS ---IF POSSIBLE NEEDS OTHER SNF ETC 9-8 STILL NOT WORKING MUCH WITH PT AND OT NEEDS SNF BUT REFUSES TO GO Physical Exam Vital signs: Vital Signs 07/10/18 16:00 07/11/18 00:00 07/11/18 04:00 Temperature 98.2 F 98.3 F 97.9 F Pulse Rate 90 86 71 Respiratory Rate 17 16 16 Blood Pressure 115/64 136/65 126/68 Pulse Oximetry 97 94 L 97 07/11/18 08:00 07/11/18 12:00 Temperature 98.6 F 97.6 F Pulse Rate 89 88 Respiratory Rate 18 18 Blood Pressure 136/76 125/64 Pulse Oximetry 96 97 Intake & Output 07/10/18 07/11/18 07/11/18 18:59 06:59 18:59 Intake Total 1000 / 1000 2240 / 2240 1000 / 1000 Balance 1000 / 1000 2240 / 2240 1000 / 1000 Weight 47.9 kg Intake: IV 1000 / 1000 1999 / 2000 1000 / 1000 NS + KCl 20 mEq Inj 1,000 ML @ 1000 / 1000 2000 / 2000 1000 / 1000 100 mls/hr IV.CONT .Q10H [facility] Rx #:[id number] Oral 240 / 240 Other: # Voids 4 Narrative: GENERAL: NAD, A&Ox3 HEAD: Normocephalic. NECK: Supple, trachea midline. No lymphadenopathy. EYES: No scleral icterus. No injection or drainage. CARDIOVASCULAR: Regular rate and rhythm without murmurs, gallops, or rubs. RESPIRATORY: Breath sounds equal bilaterally. No accessory muscle use. GASTROINTESTINAL: Abdomen soft, non-tender, nondistended. MUSCULOSKELETAL: No cyanosis, or edema. GENERALIZED WEAKNESS SKIN: Warm and dry. NEURO: No focal neurological deficits. Results - Labs CBC & Chem 7: 07/09/18 06:05 07/09/18 06:05 - Procedures NONE Assessment and Plan - Assessment (1) Delirium tremens Code(s): F10.231 - Alcohol dependence with withdrawal delirium Status: Acute (2) Pneumonia Code(s): J18.9 - Pneumonia, unspecified organism Status: Acute (3) COPD (chronic obstructive pulmonary disease) Code(s): J44.9 - Chronic obstructive pulmonary disease, unspecified Status: Acute - Plan 68-year-old female admitted secondary to pneumonia and severe sepsis, now with delirium tremens Severe Sepsis, bacteremia Following cultures, resolving 2D echocardiogram did not demonstrate vegetations, ejection fraction 65-70% Continuing p.o. Levaquin-COMPLETED Community-acquired pneumonia, COPD Continue p.o. Levaquin, Symbicort, duo nebs, oxygen Chest x-ray suspicious for pneumonia of right lobe Patient remains afebrile, following CBC for leukocyte trend COMPLETED ANTIBIOTICS Alcoholism , delirium tremens Continue CIWA protocol with Ativan Continue seizure precautions Currently stable no issues Metabolic encephalopathy Likely related to delirium tremens Soft restraints removed yesterday Alert and oriented 3 Nicotine dependence Nicotine patch VERY HYPOTHYROID NEEDS REPLACEMENT WILL START 50MCG PO DAILY Hypokalemia Replace and monitor as needed DVT prophylaxis SCDs NEEDS SAFE PLACEMENT DW RN AND PT AND CM AND PHYSICAL THERAPY NEEDS A SAFE DC Code Status: DNR Discussed Condition With: RN AND PT AND CM Discharge Planning: NEEDS SAFE PLACEMENT (2) Pneumonia Qualifiers: Pneumonia type: due to unspecified organism Laterality: right Lung location : lower lobe of lung Qualified Code(s): J18.1 - Lobar pneumonia, unspecified organism
[2018-07-12] MEDS: Levothyroxine 50 MCG Tablet PO SCH (05:15)
[2018-07-12] MEDS: LORazepam 1 MG Tablet PO PRN (05:15)
[2018-07-12] MEDS: Tobramycin 0.3% Opth Drops 5 ML Bottle LEFT EYE SCH (09:54)
[2018-07-12] MEDS: Folic Acid 1 MG Tablet PO SCH (09:54)
--- NOTE | 2018-07-12 11:02 | P.PNIM ---
Subjective Interval history: 9- PATIENT AWAITS SAFE PLACEMENT NEEDS PT AND OT DOES NOT WANT FURTHER SURGERIES WILL NEED SNF UNABLE TO CARE FOR HERSELF DW PT AND RN AND CM PT AND OT AM LABS 9-6 DOES NOT WANT TO GO TO SNF AT THIS TIME STATES [place]IVING [place] HAS WHEELCHAIR NOT VERY MOBILE AT THIS TIME YET COULD USE SNF VS REHAB 9-7 STATES SHE IS NOT MOBILE YET STATES SHE LI[place]IVING ON THE ST[place] STILL NOT VERY MOBILE REFUSING SNF AT THIS TIME NOT A SAFE DC BACK TO THE STREETS ---IF POSSIBLE NEEDS OTHER LONG-TERM ETC 9-8 STILL NOT WORKING MUCH WITH PT AND OT NEEDS SNF BUT REFUSES TO GO 9-9 SHOWED ME SHE CAN TRANSFER HERSELF FROM BED TO BEDSIDE COMMODE DC TO HOME PATIENT LIVES ON THE STREETS AND REFUSES SNF EVEN THOUGH SHE WOULD QUALIFY WANTS TO GO BACK TO [place] HAS HER OWN WHEELCHAIR Physical Exam Vital signs: Vital Signs 07/11/18 12:00 07/11/18 18:59 07/11/18 20:00 Temperature 97.6 F 98.3 F 98.1 F Pulse Rate 88 78 80 Respiratory Rate 18 18 18 Blood Pressure 125/64 141/67 H 117/60 Pulse Oximetry 97 96 96 07/12/18 04:00 07/12/18 08:00 Temperature 98.1 F 98.2 F Pulse Rate 81 87 Respiratory Rate 18 18 Blood Pressure 123/61 115/59 L Pulse Oximetry 96 96 Intake & Output 07/11/18 07/12/18 07/12/18 18:59 06:59 18:59 Intake Total 1000 / 1000 2320 / 2320 1000 / 1000 Output Total 1200 / 1200 Balance 1000 / 1000 1120 / 1120 1000 / 1000 Weight 47.8 kg Intake: IV 1000 / 1000 1000 / 1000 1000 / 1000 NS + KCl 20 mEq Inj 1,000 ML @ 1000 / 1000 1000 / 1000 1000 / 1000 100 mls/hr IV.CONT .Q10H KEYA Rx #:[id number] Oral 1320 / 1320 Output: Urine 1200 / 1200 Other: # Urine Diapers 5 Date of Last Bowel Movement 07/11/18 # Bowel Movements 2 Narrative: GENERAL: NAD, A&Ox3 HEAD: Normocephalic. NECK: Supple, trachea midline. No lymphadenopathy. EYES: No scleral icterus. No injection or drainage. CARDIOVASCULAR: Regular rate and rhythm without murmurs, gallops, or rubs. RESPIRATORY: Breath sounds equal bilaterally. No accessory muscle use. GASTROINTESTINAL: Abdomen soft, non-tender, nondistended. MUSCULOSKELETAL: No cyanosis, or edema. GENERALIZED WEAKNESS SKIN: Warm and dry. NEURO: No focal neurological deficits. Results - Labs CBC & Chem 7: 07/09/18 06:05 07/09/18 06:05 Laboratory Tests 06/29/18 06/29/18 06/30/18 21:28 21:28 03:14 WBC 19.3 H RBC 3.73 L Hgb 13.3 Hct 39.1 MCV 104.6 H MCH 35.5 H MCHC 34.0 RDW 13.8 Plt Count 578 H MPV 8.3 Prelim Diff (Auto) Slide review pending Neut % (Auto) 58.1 Lymph % (Auto) 30.1 [place] % (Auto) 10.0 H Eos % (Auto) 1.1 Baso % (Auto) 0.7 Neut # (Auto) 11.2 H Lymph # (Auto) 5.8 H [place] # (Auto) 1.9 H Eos # (Auto) 0.2 Baso # (Auto) 0.1 WBC Differential Manual diff final Seg Neuts % (Manual) 47 Band Neuts % (Manual) 16 H Lymphocytes % (Manual) 24 Monocytes % (Manual) 10 H Eosinophils % (Manual) 3 Basophils % (Manual) Metamyelocytes % (Man) Promyelocytes % (Man) Abs Neuts (Manual) 12.2 H Differential Comment . Platelet Estimate High H Platelet Morphology Normal Basophilic Stippling Moran-Decherd Bodies Sodium 138 Potassium 3.2 L Chloride 103 Carbon Dioxide 24.6 Anion Gap 10 BUN 5 L Creatinine 0.54 Estimated GFR Greater than 89 Random Glucose 93 Hemoglobin A1c Lactic Acid 3.0 H Calcium 9.1 Prot Corrected Calcium Phosphorus Magnesium Total Bilirubin AST ALT Alkaline Phosphatase Total Protein Albumin Procalcitonin TSH Free T4 Vancomycin Trough Urine Opiates Screen Ur Barbiturates Screen Ur Amphetamines Screen U Benzodiazepines Scrn Urine Cocaine Screen U Cannabinoids Screen Serum Alcohol 250 H 06/30/18 06/30/18 06/30/18 05:58 06:05 06:05 WBC 14.8 H RBC 3.11 L Hgb 10.9 L D Hct 33.0 L MCV 106.2 H MCH 35.2 H MCHC 33.1 RDW 13.7 Plt Count 482 H MPV 8.0 Prelim Diff (Auto) Neut % (Auto) 71.7 H Lymph % (Auto) 15.6 [place] % (Auto) 10.8 H Eos % (Auto) 1.3 Baso % (Auto) 0.6 Neut # (Auto) 10.6 H Lymph # (Auto) 2.3 [place] # (Auto) 1.6 H Eos # (Auto) 0.2 Baso # (Auto) 0.1 WBC Differential . Seg Neuts % (Manual) Band Neuts % (Manual) Lymphocytes % (Manual) Monocytes % (Manual) Eosinophils % (Manual) Basophils % (Manual) Metamyelocytes % (Man) Promyelocytes % (Man) Abs Neuts (Manual) Differential Comment Auto diff final Platelet Estimate Platelet Morphology Basophilic Stippling Moran-Decherd Bodies Sodium 141 Potassium 3.3 L Chloride 107 Carbon Dioxide 22.1 Anion Gap 12 BUN 3 L Creatinine 0.29 L Estimated GFR Greater than 89 Random Glucose 81 Hemoglobin A1c Lactic Acid 1.8 Calcium 7.3 L* D Prot Corrected Calcium 7.8 L Phosphorus Magnesium Total Bilirubin 0.3 AST 29 ALT 24 Alkaline Phosphatase 214 H Total Protein 6.2 L Albumin 2.0 L Procalcitonin TSH Free T4 Vancomycin Trough Urine Opiates Screen Ur Barbiturates Screen Ur Amphetamines Screen U Benzodiazepines Scrn Urine Cocaine Screen U Cannabinoids Screen Serum Alcohol 06/30/18 07/01/18 07/01/18 15:32 07:51 13:20 WBC 10.8 RBC 2.41 L Hgb 8.6 L D Hct 25.4 L MCV 105.4 H MCH 35.9 H MCHC 34.0 RDW 13.5 Plt Count 337 D MPV 8.2 Prelim Diff (Auto) Neut % (Auto) 67.1 Lymph % (Auto) 17.1 [place] % (Auto) 13.4 H Eos % (Auto) 1.8 Baso % (Auto) 0.6 Neut # (Auto) 7.3 Lymph # (Auto) 1.9 [place] # (Auto) 1.4 H Eos # (Auto) 0.2 Baso # (Auto) 0.1 WBC Differential . Seg Neuts % (Manual) Band Neuts % (Manual) Lymphocytes % (Manual) Monocytes % (Manual) Eosinophils % (Manual) Basophils % (Manual) Metamyelocytes % (Man) Promyelocytes % (Man) Abs Neuts (Manual) Differential Comment Auto diff final Platelet Estimate Platelet Morphology Basophilic Stippling Moran-Decherd Bodies Sodium Potassium Chloride Carbon Dioxide Anion Gap BUN Creatinine Estimated GFR Random Glucose Hemoglobin A1c Lactic Acid Calcium Prot Corrected Calcium Phosphorus Magnesium Total Bilirubin AST ALT Alkaline Phosphatase Total Protein Albumin Procalcitonin 37.78 H TSH Free T4 Vancomycin Trough Urine Opiates Screen Neg Ur Barbiturates Screen Neg Ur Amphetamines Screen Neg U Benzodiazepines Scrn Neg Urine Cocaine Screen Neg U Cannabinoids Screen Neg Serum Alcohol 07/01/18 07/02/18 07/02/18 18:30 09:47 09:47 WBC 12.1 H RBC 3.56 L Hgb 12.8 D Hct 36.5 MCV 102.5 H MCH 35.9 H MCHC 35.0 RDW 13.2 Plt Count 538 H D MPV 7.9 Prelim Diff (Auto) Slide review pending Neut % (Auto) 64.7 Lymph % (Auto) 23.6 [place] % (Auto) 9.9 H Eos % (Auto) 1.1 Baso % (Auto) 0.7 Neut # (Auto) 7.9 H Lymph # (Auto) 2.9 [place] # (Auto) 1.2 H Eos # (Auto) 0.1 Baso # (Auto) 0.1 WBC Differential Manual diff final Seg Neuts % (Manual) 67 Band Neuts % (Manual) 7 H Lymphocytes % (Manual) 19 Monocytes % (Manual) 5 Eosinophils % (Manual) Basophils % (Manual) Metamyelocytes % (Man) 1 Promyelocytes % (Man) 1 H Abs Neuts (Manual) 9.2 H Differential Comment . Platelet Estimate High H Platelet Morphology Normal Basophilic Stippling Faint H Moran-Decherd Bodies Present H Sodium 137 137 Potassium 3.4 L 3.3 L Chloride 104 102 Carbon Dioxide 24.4 24.9 Anion Gap 9 10 BUN 2 L 2 L Creatinine 0.38 L 0.32 L Estimated GFR Greater than 89 Greater than 89 Random Glucose 101 117 H Hemoglobin A1c Lactic Acid Calcium 8.3 L D 8.5 Prot Corrected Calcium Phosphorus Magnesium Total Bilirubin AST ALT Alkaline Phosphatase Total Protein Albumin Procalcitonin TSH Free T4 Vancomycin Trough Urine Opiates Screen Ur Barbiturates Screen Ur Amphetamines Screen U Benzodiazepines Scrn Urine Cocaine Screen U Cannabinoids Screen Serum Alcohol 07/03/18 07/03/18 07/03/18 05:57 05:57 13:05 WBC 10.7 RBC 3.88 L Hgb 13.9 Hct 41.0 MCV 105.8 H MCH 35.8 H MCHC 33.8 RDW 13.5 Plt Count 543 H MPV 8.2 Prelim Diff (Auto) Slide review pending Neut % (Auto) 55.2 Lymph % (Auto) 28.1 [place] % (Auto) 11.2 H Eos % (Auto) 4.7 H Baso % (Auto) 0.8 Neut # (Auto) 5.9 Lymph # (Auto) 3.0 [place] # (Auto) 1.2 H Eos # (Auto) 0.5 H Baso # (Auto) 0.1 WBC Differential Manual diff final Seg Neuts % (Manual) 57 Band Neuts % (Manual) 11 H Lymphocytes % (Manual) 17 Monocytes % (Manual) 8 Eosinophils % (Manual) 5 H Basophils % (Manual) 1 Metamyelocytes % (Man) 1 Promyelocytes % (Man) Abs Neuts (Manual) 7.4 Differential Comment . Platelet Estimate High H Platelet Morphology Normal Basophilic Stippling Moran-Decherd Bodies Sodium 136 Potassium 4.3 D Chloride 101 Carbon Dioxide 23.2 Anion Gap 12 BUN 2 L Creatinine 0.34 L Estimated GFR Greater than 89 Random Glucose 76 Hemoglobin A1c Lactic Acid Calcium 8.9 Prot Corrected Calcium Phosphorus Magnesium Total Bilirubin 0.6 AST 29 ALT 21 Alkaline Phosphatase 187 H Total Protein 7.8 D Albumin 2.5 L Procalcitonin TSH Free T4 Vancomycin Trough 11.3 H Urine Opiates Screen Ur Barbiturates Screen Ur Amphetamines Screen U Benzodiazepines Scrn Urine Cocaine Screen U Cannabinoids Screen Serum Alcohol 07/06/18 07/06/18 07/08/18 06:30 06:30 08:04 WBC 9.9 9.7 RBC 3.19 L 3.28 L Hgb 11.1 L 11.5 L Hct 33.3 L 33.7 L MCV 104.4 H 102.5 H MCH 34.7 H 35.2 H MCHC 33.3 34.3 RDW 13.7 13.4 Plt Count 539 H 592 H MPV 8.1 8.0 Prelim Diff (Auto) Neut % (Auto) Lymph % (Auto) [place] % (Auto) Eos % (Auto) Baso % (Auto) Neut # (Auto) Lymph # (Auto) [place] # (Auto) Eos # (Auto) Baso # (Auto) WBC Differential Seg Neuts % (Manual) Band Neuts % (Manual) Lymphocytes % (Manual) Monocytes % (Manual) Eosinophils % (Manual) Basophils % (Manual) Metamyelocytes % (Man) Promyelocytes % (Man) Abs Neuts (Manual) Differential Comment Platelet Estimate Platelet Morphology Basophilic Stippling Moran-Decherd Bodies Sodium 139 Potassium 3.6 Chloride 104 Carbon Dioxide 25.3 Anion Gap 10 BUN 2 L Creatinine 0.34 L Estimated GFR Greater than 89 Random Glucose 89 Hemoglobin A1c Lactic Acid Calcium 7.8 L Prot Corrected Calcium Phosphorus Magnesium Total Bilirubin AST ALT Alkaline Phosphatase Total Protein Albumin Procalcitonin TSH Free T4 Vancomycin Trough Urine Opiates Screen Ur Barbiturates Screen Ur Amphetamines Screen U Benzodiazepines Scrn Urine Cocaine Screen U Cannabinoids Screen Serum Alcohol 07/08/18 07/09/18 07/09/18 08:04 06:05 06:05 WBC 10.2 RBC 3.08 L Hgb 10.8 L Hct 32.2 L MCV 104.5 H MCH 35.0 H MCHC 33.5 RDW 13.4 Plt Count 587 H MPV 8.1 Prelim Diff (Auto) Neut % (Auto) 60.1 Lymph % (Auto) 24.7 [place] % (Auto) 10.1 H Eos % (Auto) 4.2 H Baso % (Auto) 0.9 Neut # (Auto) 6.1 Lymph # (Auto) 2.5 [place] # (Auto) 1.0 H Eos # (Auto) 0.4 Baso # (Auto) 0.1 WBC Differential . Seg Neuts % (Manual) Band Neuts % (Manual) Lymphocytes % (Manual) Monocytes % (Manual) Eosinophils % (Manual) Basophils % (Manual) Metamyelocytes % (Man) Promyelocytes % (Man) Abs Neuts (Manual) Differential Comment Auto diff final Platelet Estimate Platelet Morphology Basophilic Stippling Moran-Decherd Bodies Sodium 141 Potassium 3.6 Chloride 105 Carbon Dioxide 27.4 Anion Gap 9 BUN 3 L Creatinine 0.42 L Estimated GFR Greater than 89 Random Glucose 98 Hemoglobin A1c 5.3 Lactic Acid Calcium 8.5 Prot Corrected Calcium Phosphorus Magnesium Total Bilirubin AST ALT Alkaline Phosphatase Total Protein Albumin Procalcitonin TSH Free T4 Vancomycin Trough Urine Opiates Screen Ur Barbiturates Screen Ur Amphetamines Screen U Benzodiazepines Scrn Urine Cocaine Screen U Cannabinoids Screen Serum Alcohol 07/09/18 06:05 WBC RBC Hgb Hct MCV MCH MCHC RDW Plt Count MPV Prelim Diff (Auto) Neut % (Auto) Lymph % (Auto) [place] % (Auto) Eos % (Auto) Baso % (Auto) Neut # (Auto) Lymph # (Auto) [place] # (Auto) Eos # (Auto) Baso # (Auto) WBC Differential Seg Neuts % (Manual) Band Neuts % (Manual) Lymphocytes % (Manual) Monocytes % (Manual) Eosinophils % (Manual) Basophils % (Manual) Metamyelocytes % (Man) Promyelocytes % (Man) Abs Neuts (Manual) Differential Comment Platelet Estimate Platelet Morphology Basophilic Stippling Moran-Decherd Bodies Sodium 139 Potassium 3.8 Chloride 105 Carbon Dioxide 24.7 Anion Gap 9 BUN 3 L Creatinine 0.42 L Estimated GFR Greater than 89 Random Glucose 88 Hemoglobin A1c Lactic Acid Calcium 8.6 Prot Corrected Calcium Phosphorus 3.3 Magnesium 1.8 Total Bilirubin 0.2 AST 22 ALT 16 Alkaline Phosphatase 115 Total Protein 6.3 L D Albumin 2.0 L Procalcitonin TSH Greater than 100.000 H Free T4 0.41 L Vancomycin Trough Urine Opiates Screen Ur Barbiturates Screen Ur Amphetamines Screen U Benzodiazepines Scrn Urine Cocaine Screen U Cannabinoids Screen Serum Alcohol - Imaging Chest X-Ray 06/29/18 21:20 CONCLUSION: Right lower lung atelectasis or consolidation. Chronic calcification seen throughout the mid and upper lungs being more prominent on the left. Chest X-Ray 07/06/18 00:00 CONCLUSION: Right lung base infiltrate and left lung base consolidation not present previously and questionable tiny bilateral pleural effusions. - Procedures NONE Assessment and Plan - Assessment (1) Delirium tremens Code(s): F10.231 - Alcohol dependence with withdrawal delirium Status: Acute (2) Pneumonia Code(s): J18.9 - Pneumonia, unspecified organism Status: Acute (3) COPD (chronic obstructive pulmonary disease) Code(s): J44.9 - Chronic obstructive pulmonary disease, unspecified Status: Acute - Plan 68-year-old female admitted secondary to pneumonia and severe sepsis, now with delirium tremens Severe Sepsis, bacteremia Following cultures, resolving 2D echocardiogram did not demonstrate vegetations, ejection fraction 65-70% Continuing p.o. Levaquin-COMPLETED Community-acquired pneumonia, COPD Continue p.o. Levaquin, Symbicort, duo nebs, oxygen Chest x-ray suspicious for pneumonia of right lobe Patient remains afebrile, following CBC for leukocyte trend COMPLETED ANTIBIOTICS Alcoholism , delirium tremens Continue CIWA protocol with Ativan Continue seizure precautions Currently stable no issues Metabolic encephalopathy Likely related to delirium tremens Soft restraints removed yesterday Alert and oriented 3 Nicotine dependence Nicotine patch VERY HYPOTHYROID NEEDS REPLACEMENT WILL START 50MCG PO DAILY Hypokalemia Replace and monitor as needed DVT prophylaxis SCDs She is refusing to work with physical therapy and Occupational Therapy. But did show me that she can transfer herself from the bed to the bedside commode and from the bedside commode back to the bed so therefore she can transfer herself to her wheelchair and can wheel herself out the door and go back to being on the streets where she wants to go and does not wish to go to an SNF or to rehab or anything like that and refuses to work with US but is at her baseline and can be discharged to home Code Status: DNR Discussed Condition With: RN AND PT AND CM Discharge Planning: DC TO PRIOR LIVING SITUATION (2) Pneumonia Qualifiers: Pneumonia type: due to unspecified organism Laterality: right Lung location : lower lobe of lung Qualified Code(s): J18.1 - Lobar pneumonia, unspecified organism
--- NOTE | 2018-07-12 11:13 | P.DS ---
Date of admission: 06/30/18 01:10 Primary care physician: UNKNOWN Attending physician on discharge: Tommie Bosch Anticipated date of discharge: 07/12/18 Brief History from admission: 68 y/o homeless female with a history or COPD and etoh abuse presented to the ED with a cough and sob. Patient states for the last few days she has had increasing sob, with a productive cough, fever and chills. She states she does have a history of TB but has not had a reoccurrence lately. She does not know the color of her sputum because she does not look at it she says. She is currently homeless, and does not take any medications. She denies any chest pain , headaches or dizziness. Patient update on day of discharge: 9-5 PATIENT AWAITS SAFE PLACEMENT NEEDS PT AND OT DOES NOT WANT FURTHER SURGERIES WILL NEED SNF UNABLE TO CARE FOR HERSELF DW PT AND RN AND CM PT AND OT AM LABS 9-6 DOES NOT WANT TO GO TO SNF AT THIS TIME [place]CHAIR NOT VERY MOBILE AT THIS TIME YET COULD USE SNF VS REHAB 9-7 STATES SHE IS NOT MOBILE YET STATES [place] STILL NOT VERY MOBILE REFUSING SNF AT THIS TIME NOT A SAFE DC BACK [place] ---IF POSSIBLE NEEDS OTHER CUSTODIAL ETC 9-8 STILL NOT WORKING MUCH WITH PT AND OT NEEDS SNF BUT REFUSES TO GO 9-9 SHOWED ME SHE CAN TRANSFER HERSELF FROM BED TO BEDSIDE COMMODE DC TO HOME PATIENT [place]IVES [place] THE ST[place] AND REFUSES SNF EVEN THOUGH SHE WOULD QUALIFY WANTS TO [place] BACK [place] HAS HER OWN WHEELCHAIR DS: Diagnosis - Discharge Diagnosis (1) Delirium tremens Status: Acute (2) Pneumonia Status: Resolved (3) COPD (chronic obstructive pulmonary disease) Status: Chronic (4) Homeless Status: Acute (5) Acute metabolic encephalopathy Status: Acute (6) Alcohol abuse with intoxication Status: Acute (7) Cough Status: Chronic (8) Debility, unspecified Status: Chronic (9) History of tuberculosis Status: Chronic (10) SOB (shortness of breath) Status: Chronic DS: Medications - Discharge Medications Prescriptions: chlordiazepoxide HCl 25 mg PO Q8H PRN #40 cap PRN Reason: WITHDRAWALS folic acid 1 mg PO DAILY #30 tab hydrocodone-acetaminophen 1 tab PO Q6H PRN #12 tab PRN Reason: Pain levothyroxine [Synthroid] 50 mcg PO DAILY@0600 #30 tab multivitamin with folic acid [Thera] 1 tab PO DAILY #30 tab sennosides [Senna Lax] 17.2 mg PO Q12H PRN #120 tab PRN Reason: Moderate Constipation thiamine HCl (vitamin B1) 100 mg PO BID #30 tab tobramycin 1 drop LEFT EYE QID #5 ml DS: Summary Hospital Course: 68 y/o homeless female with a history or COPD and etoh abuse presented to the ED with a cough and sob. Patient states for the last few days she has had increasing sob, with a productive cough, fever and chills. She states she does have a history of TB but has not had a reoccurrence lately. She does not know the color of her sputum because she does not look at it she says. She is currently homeless, and does not take any medications. She denies any chest pain , headaches or dizziness. 9-5 PATIENT AWAITS SAFE PLACEMENT NEEDS PT AND OT DOES NOT WANT FURTHER SURGERIES WILL NEED SNF UNABLE TO CARE FOR HERSELF DW PT AND RN AND CM PT AND OT AM LABS 9-6 DOES NOT WANT TO GO TO SNF AT THIS TIME [place] HAS WHEELCHAIR NOT VERY MOBILE AT THIS TIME YET COULD USE SNF VS REHAB 9-7 STATES SHE IS NOT MOBILE YET STATES [place] STILL NOT VERY MOBILE REFUSING SNF AT THIS TIME NOT A SAFE DC BACK [place] ---IF POSSIBLE NEEDS OTHER CUSTODIAL ETC 9-8 STILL NOT WORKING MUCH WITH PT AND OT NEEDS SNF BUT REFUSES TO GO 9-9 SHOWED ME SHE CAN TRANSFER HERSELF FROM BED TO BEDSIDE COMMODE DC TO HOME [place] AND REFUSES SNF EVEN THOUGH SHE WOULD QUALIFY WANTS TO [place] HER OWN WHEELCHAIR E-FORCSE Prescription Drug Monitoring Database has been queried and verified prior to prescribing the controlled substance. Acute pain exception. This patient has normal, predicted, physiological, and time limited response to an adverse mechanical stimulus associated with surgery, trauma, or acute illness as described in my notes. There is a lack of alternative treatment options other than to include the prescribed narcotic treatment for this condition. no RX ON E-FORCSE - Time Spent with Patient Total time spent providing and/or coordinating discharge services: Greater than 30 minutes Exam Vital signs: Vital Signs 07/11/18 12:00 07/11/18 18:59 07/11/18 20:00 Temperature 97.6 F 98.3 F 98.1 F Pulse Rate 88 78 80 Respiratory Rate 18 18 18 Blood Pressure 125/64 141/67 H 117/60 Pulse Oximetry 97 96 96 07/12/18 04:00 07/12/18 08:00 Temperature 98.1 F 98.2 F Pulse Rate 81 87 Respiratory Rate 18 18 Blood Pressure 123/61 115/59 L Pulse Oximetry 96 96 Intake & Output 07/11/18 07/12/18 07/12/18 18:59 06:59 18:59 Intake Total 1000 / 1000 2320 / 2320 1000 / 1000 Output Total 1200 / 1200 Balance 1000 / 1000 1120 / 1120 1000 / 1000 Weight 47.8 kg Intake: IV 1000 / 1000 1000 / 1000 1000 / 1000 NS + KCl 20 mEq Inj 1,000 ML @ 1000 / 1000 1000 / 1000 1000 / 1000 100 mls/hr IV.CONT .Q10H [facility] Rx #:[id number] Oral 1320 / 1320 Output: Urine 1200 / 1200 Other: # Urine Diapers 5 Date of Last Bowel Movement 07/11/18 # Bowel Movements 2 Narrative: GENERAL: NAD, A&Ox3 HEAD: Normocephalic. NECK: Supple, trachea midline. No lymphadenopathy. EYES: No scleral icterus. No injection or drainage. CARDIOVASCULAR: Regular rate and rhythm without murmurs, gallops, or rubs. RESPIRATORY: Breath sounds equal bilaterally. No accessory muscle use. GASTROINTESTINAL: Abdomen soft, non-tender, nondistended. MUSCULOSKELETAL: No cyanosis, or edema. GENERALIZED WEAKNESS SKIN: Warm and dry. NEURO: No focal neurological deficits. Results Procedures completed during hospitalization: NONE Completed studies during hospitalization: Laboratory Results WBC 10.2 th/mm3 (4.0-11.0) 07/09/18 06:05 RBC 3.08 mil/mm3 (4.00-5.30) L 07/09/18 06:05 Hgb 10.8 gm/dL (11.6-15.3) L 07/09/18 06:05 Hct 32.2 % (35.0-46.0) L 07/09/18 06:05 MCV 104.5 fL (80.0-100.0) H 07/09/18 06:05 MCH 35.0 pg (27.0-34.0) H 07/09/18 06:05 MCHC 33.5 % (32.0-36.0) 07/09/18 06:05 RDW 13.4 % (11.6-17.2) 07/09/18 06:05 Plt Count 587 th/mm3 (150-450) H 07/09/18 06:05 MPV 8.1 fL (7.0-11.0) 07/09/18 06:05 Prelim Diff (Auto) Slide review pending 07/03/18 05:57 Neut % (Auto) 60.1 % (16.0-70.0) 07/09/18 06:05 Lymph % (Auto) 24.7 % (9.0-44.0) 07/09/18 06:05 [place] % (Auto) 10.1 % (0.0-8.0) H 07/09/18 06:05 Eos % (Auto) 4.2 % (0.0-4.0) H 07/09/18 06:05 Baso % (Auto) 0.9 % (0.0-2.0) 07/09/18 06:05 Neut # (Auto) 6.1 th/mm3 (1.8-7.7) 07/09/18 06:05 Lymph # (Auto) 2.5 th/mm3 (1.0-4.8) 07/09/18 06:05 [place] # (Auto) 1.0 th/mm3 (0.0-0.9) H 07/09/18 06:05 Eos # (Auto) 0.4 th/mm3 (0.0-0.4) 07/09/18 06:05 Baso # (Auto) 0.1 th/mm3 (0.0-0.2) 07/09/18 06:05 WBC Differential . 07/09/18 06:05 Seg Neuts % (Manual) 57 % (16-70) 07/03/18 05:57 Band Neuts % (Manual) 11 % (0-6) H 07/03/18 05:57 Lymphocytes % (Manual) 17 % (9-44) 07/03/18 05:57 Monocytes % (Manual) 8 % (0-8) 07/03/18 05:57 Eosinophils % (Manual) 5 % (0-4) H 07/03/18 05:57 Basophils % (Manual) 1 % (0-2) 07/03/18 05:57 Metamyelocytes % (Man) 1 % (0-1) 07/03/18 05:57 Promyelocytes % (Man) 1 % (0-0) H 07/02/18 09:47 Abs Neuts (Manual) 7.4 th/mm3 (1.8-7.7) 07/03/18 05:57 Differential Comment Auto diff final 07/09/18 06:05 Platelet Estimate High (Normal) H 07/03/18 05:57 Platelet Morphology Normal (Normal) 07/03/18 05:57 Basophilic Stippling Faint (None) H 07/02/18 09:47 [place] Bodies Present (None) H 07/02/18 09:47 Sodium 139 meq/L (136-145) 07/09/18 06:05 Potassium 3.8 meq/L (3.5-5.1) 07/09/18 06:05 Chloride 105 meq/L (98-107) 07/09/18 06:05 Carbon Dioxide 24.7 meq/L (21.0-32.0) 07/09/18 06:05 Anion Gap 9 meq/L (5-15) 07/09/18 06:05 BUN 3 mg/dL (7-18) L 07/09/18 06:05 Creatinine 0.42 mg/dL (0.50-1.00) L 07/09/18 06:05 Estimated GFR Greater than 89 mL/min (>89) 07/09/18 06:05 Random Glucose 88 mg/dL (74-106) 07/09/18 06:05 Hemoglobin A1c 5.3 % (4.3-6.0) 07/09/18 06:05 Lactic Acid 1.8 mmol/L (0.4-2.0) 06/30/18 05:58 Calcium 8.6 mg/dL (8.5-10.1) 07/09/18 06:05 Prot Corrected Calcium 7.8 mg/dL (8.5-10.1) L 06/30/18 06:05 Phosphorus 3.3 mg/dL (2.5-4.9) 07/09/18 06:05 Magnesium 1.8 mg/dL (1.5-2.5) 07/09/18 06:05 Total Bilirubin 0.2 mg/dL (0.2-1.0) 07/09/18 06:05 AST 22 U/L (15-37) 07/09/18 06:05 ALT 16 U/L (10-53) 07/09/18 06:05 Alkaline Phosphatase 115 U/L (45-117) 07/09/18 06:05 Total Protein 6.3 g/dL (6.4-8.2) L D 07/09/18 06:05 Albumin 2.0 g/dL (3.4-5.0) L 07/09/18 06:05 Procalcitonin 37.78 ng/mL (0.00-0.08) H 06/30/18 15:32 TSH Greater than 100.000 uIU/mL (0.358-3.740) H 07/09/18 06:05 Free T4 0.41 ng/dL (0.76-1.46) L 07/09/18 06:05 Vancomycin Trough 11.3 mcg/mL (5.0-10.0) H 07/03/18 13:05 Urine Opiates Screen Neg (Neg) 07/01/18 13:20 Ur Barbiturates Screen Neg (Neg) 07/01/18 13:20 Ur Amphetamines Screen Neg (Neg) 07/01/18 13:20 U Benzodiazepines Scrn Neg (Neg) 07/01/18 13:20 Urine Cocaine Screen Neg (Neg) 07/01/18 13:20 U Cannabinoids Screen Neg (Neg) 07/01/18 13:20 Serum Alcohol 250 mg/dL (0-5) H 06/29/18 21:28 Impressions Chest X-Ray 07/06/18 00:00 CONCLUSION: Right lung base infiltrate and left lung base consolidation not present previously and questionable tiny bilateral pleural effusions. - Impressions ITS Impressions Chest X-Ray 07/06/18 00:00 CONCLUSION: Right lung base infiltrate and left lung base consolidation not present previously and questionable tiny bilateral pleural effusions. Discharge Plan - Discharge Disposition Patient Disposition: 01 Discharge Home - Discharge Condition Condition: Good - Discharge Order Discharge Orders: Discharge Order (Routine); Ordered 07/12/18 Ordered By: Tommie Bosch - Discharge Details Anticipated Discharge Date: 07/12/18 Discharge Comment: DC TO PREVIOUS LIVING SITUATION - Physicians Team Primary Care Provider: UNKNOWN, Attending Provider: Tommie Bosch Other Providers: Emily Hicks MD ; Chio Stewart MD
== END 2018-07-12 14:03 | disposition home or self-care (01) ==
LOC: NEPE 20:56 → NEDA 06-30 01:10 → NEDH 06-30 06:20 → H7ONC 06-30 11:31 → N04 07-03 17:50
PROVIDERS: ADMIT Hospitalist; ATTEND Hospitalist